=== PATIENT | male | born 1940 | race Caucasian/White ===

== ENCOUNTER → 2017-11-07 08:40 | Outpatient (CLI) | payer MEDICARE, OTHER, SELFPAY ==
[2017-11-07 11:39] LABS: PSA,Total- Diagnostic 2.58 ng/mL (0.0-4.0)
== END ==
PROVIDERS: Family Provider Nurse Practitioner; PCP Nurse Practitioner; Visit Provider Urology
DX: R97.20 Elevated prostate specific antigen [PSA] (principal)
CPT/HCPCS: 36415; 84153

== ENCOUNTER → 2018-10-08 10:07 | Outpatient (CLI) | payer MEDICARE, SELFPAY ==
[2018-08-13 13:28] VITALS: BMI 32.4
--- NOTE | 2018-10-08 10:11 | RAD_ITS ---
STUDY: X-RAY CHEST REASON FOR EXAM: Male, 78 years old. Pre-op. Patient has shortness of breath TECHNIQUE: PA and lateral views of the chest. COMPARISON: None. FINDINGS: There is hyperinflation of the lungs consistent with chronic obstructive lung disease (COPD). Lungs are clear. There is no demonstrated pleural abnormality. Normal size heart. Normal mediastinum and west. Normal visualized pulmonary arteries. Normal visualized aortic arch and descending thoracic aorta. Normal visualized thoracic spine. Normal visualized ribs, clavicles, and shoulders. There is no demonstrated abnormality of the visualized soft tissue structures of the upper abdomen. RAD/Chest PA and Lateral IMPRESSION: COPD. Lungs are clear. Electronically Signed: Isma Berman DO at 16:51 EDT Tel , Service support ,
== END ==
PROVIDERS: Family Provider Nurse Practitioner; PCP Nurse Practitioner; Referring Provider Nurse Practitioner; Visit Provider Nurse Practitioner
DX: Z01.818 Encounter for other preprocedural examination (principal)
CPT/HCPCS: 71046

== ENCOUNTER → 2018-11-10 09:46 | Outpatient (CLI) | payer MEDICARE, SELFPAY ==
[2018-08-13 13:28] VITALS: BMI 32.4
[2018-11-10 11:11] LABS: PSA,Total - Annual Screen 3.27 ng/mL (0.00-4.00)
== END ==
PROVIDERS: Family Provider Nurse Practitioner; PCP Nurse Practitioner; Referring Provider Urology; Visit Provider Urology
DX: Z12.5 Encounter for screening for malignant neoplasm of prostate (principal)
CPT/HCPCS: 36415; 84153; G0103

== ENCOUNTER 2018-12-14 08:01 | Inpatient (IN) | payer MEDICARE, SELFPAY ==
[2018-08-13 13:28] VITALS: BMI 32.4
[2018-12-07 15:16] VITALS: BP 122/73; PULSE 87; RESP 16; TEMP 36.7; O2SAT 94; BMI 30.6
--- NOTE | 2018-12-07 15:38 | SDCEKG_ITS ---
Test Reason : Blood Pressure : / mmHG Vent. Rate : 060 BPM Atrial Rate : 060 BPM P-R Int : 178 ms QRS Dur : 108 ms QT Int : 452 ms P-R-T Axes : -08 020 029 degrees QTc Int : 452 ms Sinus rhythm with Premature atrial complexes Otherwise normal ECG Confirmed by RADHA GANDHI, NAT ([id number]), supervising editor trailer STACEY QUIÑONES ([id number]) on 12/15/2018 11:29:50 AM Referred By: Arvin Fox Confirmed By:NAT GARCIA MD
[2018-12-07 16:34] LABS: Absolute Lymphocyte Count 1.61 X10^3/uL (0.83-4.51); Absolute Neutrophil Count 3.2 X10^3/uL (2.0-7.7); Basophil# 0.02 X10^3/uL; Basophil% 0.4 % (0-1); Eosinophil# 0.14 X10^3/uL; Eosinophils% 2.5 % (0-5); Hematocrit 42.8 % (40-54); Hemoglobin 14.7 g/dL (13.0-16.5); Lymphocyte # 1.61 X10^3/ul (4.0); Lymphocyte % 28.9 % (19-41); Mean Corp Hgb Conc 34.3 g/dL (32-36); Mean Corpuscular Hgb 31.1 pg (27.0-32.0); Mean Corpuscular Volume 90.7 fL (80-94); Mean Platelet Vol. 11.2 fl (6.2-12.0); Monocyte# 0.59 X10^3/uL; Monocyte% 10.6 % (0-10); NRBC Flagged by Analyzer 0 % (0-5); Neutrophil % 57.4 % (47-70); Platelet Count 140 K/mm3 (150-450); RBC Distribution Width CV 13.2 % (11.6-14.6); RBC Distribution Width SD 43.5 fl (35.1-43.9); Red Blood Count 4.72 M/mm3 (4.6-6.2); White Blood Count 5.6 K/mm3 (4.4-11.0)
[2018-12-07 16:53] LABS: Anion Gap 7 (5-15); BUN 14 mg/dL (7-18); BUN/Creat Ratio 17.3 RATIO (10-20); Calcium,Total 9.1 mg/dL (8.5-10.1); Chloride 110 mmol/L (98-107); Creatinine, Serum 0.81 mg/dL (0.70-1.30); EST Glomerular Filtration Rate 98 mL/min (>60); Est Glom Filt Rate - Afr Amer 118 mL/min (>60); Estimated Creatinine Clearance 85.98 ml/min; Glucose 88 mg/dL (74-106); Potassium 3.8 mmol/L (3.5-5.1); Sodium Level 143 mmol/L (136-145)
[2018-12-14] VITALS (18 sets, daily range): BP systolic 84–129; BP diastolic 43–85; PULSE 60–79; RESP 16–18; TEMP 36.1–36.6; O2SAT 92–98; BMI 30.6; BMI 31.1
[2018-12-14] MEDS: Acetaminophen 500 MG Tablet 1000 MG PO ×2 (09:00→22:19)
[2018-12-14] MEDS: Gabapentin 600 MG Tablet PO (09:00)
[2018-12-14] MEDS: Lactated Ringers 1,000 ML 125 ML IV ×3 (09:14→18:51)
[2018-12-14 09:20] LABS: Bedside Glucose 103 mg/dL (70-110)
--- NOTE | 2018-12-14 10:00 | HIP_PTH ---
PATIENT: PRABHU BUCIO LOC: MS3 U#:[id number] AGE/SX: 78/M ROOM: MS306 RE12/14/[address]: Dr. Arvin Fox DO : 1940 BED: 1 DIS: 12/16/2018 SPEC #: [id number] RECD: 12/14/18 15:55 STATUS: TERA REDelisa #: [id number] RAIN: 12/14/18 10:[address]: Arvin Fox DEPT: SURGICAL PATHOLOGY RECD BY: Macie Pinto ENTERED: 12/15/18 08:55 SP TYPE: TOTAL HIP OTHR DR: Nithya Harrell DEPUTY DISTRICT CUSTOMS DIRECTOR-Ata Tissues: Hip, NOS Procedures: Decalcification bone/plaque Surgery Specimen Level IV HEADER OPERATION: ERAS, total hip replacement PRE-OP DIAGNOSIS: Unilateral primary osteoarthritis, right hip TISSUE SUBMITTED: Right hip bone MICROSCOPIC DIAGNOSIS Right hip bone and soft tissue, total hip replacement/resection: Femoral head with degenerative osteoarthritic changes. Fragments of fibroadipose tissue, fibroconnective tissue and reactive synovial tissue. NAS:halle 12/18/18 MICROSCOPIC DESCRIPTION Slides are reviewed. GROSS DESCRIPTION Received is one container labeled with the patient's name and designated right hip bone. The specimen consists of a alberts femoral head with portion of femoral neck. The femoral head measures 5.5 x 7 x 6 cm and the portion of femoral neck measures 2 cm in length. The articular surface displays prominent osteophyte formation, eburnation and bone erosion. Also present in the specimen container are multiple irregular fragments of bone reamings and pink-yellow soft tissue measuring in aggregate 10 x 9 x 3 cm. Taper And Floater sections are submitted in two cassettes as follows: 1 - soft tissue, 2 - bone after decalcification. / NAS:halle 12/15/18 TC:5 CPT: 27686, [id number]
[2018-12-14] MEDS: Cefazolin 2 GM in 0.9% Normal Saline 100 ML IV (10:41)
--- NOTE | 2018-12-14 12:54 | RAD_ITS ---
STUDY: X-RAY - PELVIS AND RIGHT HIP REASON FOR EXAM: Male, 78 years old. Status post replacement TECHNIQUE: 2 views of the pelvis and hip. COMPARISON: None. FINDINGS: 2 limited postoperative views of the right hip were performed after replacement surgery. Components demonstrate anatomic alignment. No plain film evidence of postoperative complication. Normal postoperative soft tissue swelling and subcutaneous emphysema. RAD/Hip Min 2 Views (Portable) IMPRESSION: Replaced right hip joint demonstrates anatomic alignment. No plain film evidence of postoperative complication Electronically Signed: Arnav Stacy MD at 13:21 EDT , Service support ,
--- NOTE | 2018-12-14 13:08 | PCM.OPRPT ---
Report of Operation Date of Procedure: 12/14/18 Pre-Operative Diagnosis: OA right hip Post-Operative Diagnosis: same Surgery/Procedure Performed:: Right THR Description of Surgical Findings:: Primary Surgeon/Physician: Arvin Fox rotary veneer machine operator: Bi Espinoza PA-C rotary veneer machine operator: Pre-Operative Diagnosis: OA Right hip Post-Operative Diagnosis: same Surgery/Procedure Performed: Right THR Estimated Blood Loss: 100 cc Specimen's Removed: femoral head Type of Anesthesia: ASA Class: ASA3 Severe Disease Implants: [[place] size 56 mm Tritanium cup, MDM liner with +4 head, Accolade type II size 5 stem ] Surgical Indications: Patient has severe end-stage osteoarthritic changes in the [right ] hip. They have failed conservative measures including activity modification, anti-inflammatories, use of assistive devices. This to the point where the pain affects their ability to enjoy life and complete activities of daily living without discomfort. Patient has elected to undergo the above procedure Procedure Description: The patient was greeted in the preoperative area the [right ] hip was marked with surgical marker preoperative antibiotics administered. The patient was then taken to or suite in stable condition. Preoperative tranexamic acid was also utilized. Once the patient was placed in the supine position on the operating room table and once adequate anesthesia was obtained they were then placed in the lateral decubitus position with the surgical hip facing the field. All bony prominences were well-padded. A commercial hip position was utilized. The appropriate extremity was then prepped and draped in usual sterile fashion. Ioban was placed on the skin. Surgical timeout was performed and surgery was commenced. A standard posterior approach to the hip was then performed. Incision was planned and carried out with a #10 blade scalpel. Dissection was then carried length of the incision to the IT band which was split proximally and distally. A Charnley retractor was then placed for soft tissue retraction exposing the piriformis. A standard posterior capsulotomy was performed. Severe eburnation of bone was noted and periarticular osteophytes were identified consistent with severe end-stage osteoarthritis. A femoral neck osteotomy guide was used to castro the proximal femur. A femoral osteotomy was then created approximately 1 fingerbreadth above the lesser trochanter. This was measured and placed on the back table. Once this was complete acetabular retractors were placed anteriorly and posteriorly. Labrum was then removed from the acetabulum exposing the entire cup of the acetabulum. Sequential reaming was then commenced and the acetabulum was medialized and sequentially widened in order to accommodate appropriate size cup. The acetabular cup was then impacted into position to the appropriate depth referencing approximately 30? anteversion and 45? of inclination. Excellent purchase was obtained. An appropriate size MDM liner was then placed. Attention was then turned to the femoral preparation. The hip was placed in the 90/90 position and a lateralizing box osteotome was utilized. Femoral starting awl was used followed by sequential broaching to the appropriate size. Excellent purchase was obtained with the stem no stem subsidence and excellent rotational stability was confirmed. A calcar reamer was then used in the trial head neck was placed on the broach. The hip was then located and taken through full range of motion flexion internal and external rotation as well as extension. Excellent stability was noted no impingement was identified of the components and leg lengths appear to be appropriate. The hip was at this point dislocated and the trial femoral components were removed. The final femoral stem was then implanted and impacted to the appropriate depth. Again excellent purchase was obtained no stem subsidence or rotational instability was noted. The hip was once again trialed and confirmation of leg length and stability was performed. Soft tissue tension also appeared to be appropriate. At this point the hip was redislocated and the trunnion was cleaned and dried meticulously in the appropriate size MDM femoral head was placed on the clean dry trunnion using a 12/14 Hager taper. The hip was once again relocated and again taken through full range of motion. I did inject a cocktail of postoperative pain medication in the deep and superficial tissues. Copious irrigation was performed. Anatomic closure of the piriformis tendon was performed through drill holes in the greater trochanter. A #1 Vicryl 0 Vicryl was utilized in subcutaneous tissue and surgical majo were placed in the skin. A well-padded nonadherent dressing was applied. Patient was taken to PACU in stable condition. No complications were identified. Will follow standard postop protocol for total hip arthroplasty. My retail event assistant played a vital role in the procedure beginning with positioning, holding retraction of soft tissues, positioning the leg to optimize visualization during the procedure and assisting with wound closure. rotary veneer machine operator: Bi Espinoza Type of Anesthesia:: General Anesthesiologist: Elbert Lakhani Specimen's removed: bone Estimated Blood Loss (mL): 100 cc - Admit VTE Documentation VTE Present on Admission: No VTE Mechan Device Prophylaxis: SCD's, Thigh High SANGEETA Joee VTE Pharm Prophylaxis ordered?: Yes
[2018-12-14 13:37] LABS: Hematocrit 38.7 % (40-54); Hemoglobin 13.2 g/dL (13.0-16.5); Mean Corp Hgb Conc 34.1 g/dL (32-36); Mean Corpuscular Hgb 31.4 pg (27.0-32.0); Mean Corpuscular Volume 91.9 fL (80-94); Mean Platelet Vol. 10.9 fl (6.2-12.0); Platelet Count 121 K/mm3 (150-450); RBC Distribution Width CV 13.2 % (11.6-14.6); RBC Distribution Width SD 44.2 fl (35.1-43.9); Red Blood Count 4.21 M/mm3 (4.6-6.2); White Blood Count 7.3 K/mm3 (4.4-11.0)
[2018-12-14 13:49] LABS: Anion Gap 8 (5-15); BUN 24 mg/dL (7-18); BUN/Creat Ratio 21.1 RATIO (10-20); Calcium,Total 8.6 mg/dL (8.5-10.1); Chloride 109 mmol/L (98-107); Creatinine, Serum 1.14 mg/dL (0.70-1.30); EST Glomerular Filtration Rate 66 mL/min (>60); Est Glom Filt Rate - Afr Amer 80 mL/min (>60); Estimated Creatinine Clearance 61.09 ml/min; Glucose 162 mg/dL (74-106); Potassium 3.7 mmol/L (3.5-5.1); Sodium Level 142 mmol/L (136-145)
[2018-12-14] MEDS: CLARIFY ORDER NOTE (15:44)
[2018-12-14] MEDS: oxyCODONE 5 MG Tablet PO (18:27)
[2018-12-14] MEDS: Cefazolin 1 GM/50 ML BAG IV (18:27)
[2018-12-14] MEDS: Gabapentin 300 MG Capsule PO (18:28)
[2018-12-14] MEDS: Niacin SA 500 MG Tablet PO (22:19)
[2018-12-14] MEDS: Senna/Docusate Sodium 1 Tablet 2 TABLET PO (22:20)
[2018-12-15 01:30] VITALS: BP 105/53; PULSE 65; RESP 16; TEMP 37.2; O2SAT 95
[2018-12-15] MEDS: Cefazolin 1 GM/50 ML BAG IV (01:52)
[2018-12-15] MEDS: Acetaminophen 500 MG Tablet 1000 MG PO ×3 (05:44→22:17)
[2018-12-15 05:54] LABS: Hemoglobin 11.5 g/dL (13.0-16.5); Mean Corp Hgb Conc 32.9 g/dL (32-36); Mean Corpuscular Hgb 30.9 pg (27.0-32.0); Mean Corpuscular Volume 94.1 fL (80-94); Mean Platelet Vol. 11.3 fl (6.2-12.0); Platelet Count 101 K/mm3 (150-450); RBC Distribution Width CV 13.1 % (11.6-14.6); RBC Distribution Width SD 44.9 fl (35.1-43.9); Red Blood Count 3.72 M/mm3 (4.6-6.2); White Blood Count 8.6 K/mm3 (4.4-11.0)
[2018-12-15 06:01] LABS: Scan Indicated on CBC? Y/N NO
[2018-12-15 06:09] LABS: Anion Gap 5 (5-15); BUN 25 mg/dL (7-18); BUN/Creat Ratio 19.4 RATIO (10-20); Calcium,Total 8.2 mg/dL (8.5-10.1); Chloride 108 mmol/L (98-107); Creatinine, Serum 1.29 mg/dL (0.70-1.30); EST Glomerular Filtration Rate 57 mL/min (>60); Est Glom Filt Rate - Afr Amer 69 mL/min (>60); Estimated Creatinine Clearance 53.99 ml/min; Glucose 136 mg/dL (74-106); Potassium 3.9 mmol/L (3.5-5.1); Sodium Level 142 mmol/L (136-145)
[2018-12-15 06:38] VITALS: BP 123/48; PULSE 65; RESP 16; TEMP 37.1; O2SAT 95
--- NOTE | 2018-12-15 07:22 | PN.ORTHO_ITS ---
Subjective: Patient sitting at bedside. Patient states pain is well-managed. Patient denies chest pain, shortness breath, calf pain, nausea vomiting. Patient states he is ready for discharge home today. Patient states she will be doing physical therapy at [facility]. She has no other complaints Objective: Dressing is clean dry intact. Vital signs and labs within normal limits. Patient is afebrile, neurovascular is otherwise intact. Patient is in no respiratory distress, speaking in full sentences. - Physical Exam Vitals/I&O's: Vital Signs Temp Pulse Resp BP Pulse Ox 98.8 F 65 16 123/48 H 95 12/15/18 06:38 12/15/18 06:38 12/15/18 06:38 12/15/18 06:38 12/15/18 06:38 Oxygen Flow Rate (L/min) 2 Oxygen Delivery Method Room Air Weight: 110.2 kg Body Mass Index (BMI) 31.1 Intake and Output for Last 24 Hours 12/13/18 12/14/18 12/15/18 23:59 23:59 23:59 Intake Total 4180 / 4180 1200.00 / 1200.00 Output Total 225 / 225 275 / 275 Balance 3955 / 3955 925.00 / 925.00 General: Alert, Oriented x3, Cooperative HEENT: PERRLA Oral: Moist Mucosa Cardiovascular: Regular rate Neurological: Cranial nerves II-XII grossly intact Psych/Mental Status: Normal Affect, Alert and oriented to time, place, person, mood and affect Laboratory Results 12/14/18 09:05: POC Glucose 103 12/14/18 13:30: WBC 7.3, RBC 4.21 L, Hgb 13.2, Hct 38.7 L, MCV 91.9, MCH 31.4, MCHC 34.1, RDW Std Deviation 44.2 H, RDW Coeff of April 13.2, Plt Count 121 L, MPV 10.9 12/14/18 13:30: Sodium 142, Potassium 3.7, Chloride 109 H, Carbon Dioxide 25.0, Anion Gap 8, BUN 24 H, Creatinine 1.14, Estim Creat Clear Calc 61.09, Est GFR (MDRD) Af Amer 80, Est GFR (MDRD) Non-Af 66, BUN/Creatinine Ratio 21.1 H, Glucose 162 H, Calcium 8.6 12/15/18 05:32: WBC 8.6, RBC 3.72 L, Hgb 11.5 L, Hct 35.0 L, MCV 94.1 H, MCH 30.9, MCHC 32.9, RDW Std Deviation 44.9 H, RDW Coeff of April 13.1, Plt Count 101 L, MPV 11.3 12/15/18 05:32: Sodium 142, Potassium 3.9, Chloride 108 H, Carbon Dioxide 29.0, Anion Gap 5, BUN 25 H, Creatinine 1.29, Estim Creat Clear Calc 53.99, Est GFR (MDRD) Af Amer 69, Est GFR (MDRD) Non-Af 57 L, BUN/Creatinine Ratio 19.4, Glucose 136 H, Calcium 8.2 L Current Medications Acetaminophen (Tylenol) 1,000 mg PO Q8 [facility] Last Admin: 12/15/18 05:44 Dose: 1,000 mg Documented by: Ascorbic Acid (Vitamin C) 500 mg PO DAILY@0800 [facility] Aspirin (Aspirin) 325 mg PO BID [facility] Cyanocobalamin (Vitamin B12) 1,000 mcg PO DAILY [facility] Ergocalciferol (Vitamin D) 50,000 unit PO Lowe@1000 [facility]ibr[facility] ([facility]) [facility] Finasteride (Proscar) 5 mg PO DAILY [facility] Gabapentin (Neurontin) [facility] Last Admin: 12/14/18 18:28 Dose: 300 mg Documented by: Lactated Ringer's () 1,000 mls @ 125 mls/hr IV .Q8H [facility] Last Admin: 12/15/18 05:27 Dose: Not Given Documented by: Insulin Human Lispro (Humalog Kwikpen (Bkc)) 1 - 6 unit SC Q4H PRN PRN; Protocol PRN Reason: BG>/= 180, SEE PROTOCOL Ketorolac Tromethamine (Toradol) 15 mg IV Q6H PRN PRN PRN Reason: Pain Score 1-5/10 Niacin (Niaspan) 500 mg PO BID [facility] Last Admin: 12/14/18 22:19 Dose: 500 mg Documented by: Ondansetron HCl (Zofran) 4 mg IV Q8H PRN PRN PRN Reason: NAUSEA Oxycodone HCl (Oxyir) 5 - 10 mg PO Q4H PRN PRN PRN Reason: Pain Score 4-10/10 Last Admin: 12/14/18 18:27 Dose: 5 mg Documented by: Promethazine HCl (Phenergan) 12.5 mg IM Q6H PRN PRN; Protocol PRN Reason: NAUSEA/VOMITING Senna/Docusate Sodium (Senokot-S, Amena-Colace) 2 tablet PO BID [facility] Last Admin: 12/14/18 22:20 Dose: 2 tablet Documented by: Sodium Chloride () 5 - 15 ml IV UD PRN PRN Reason: SALINE FLUSH Medical Necessity - Tobacco Use Smoking Status: Former smoker Tobacco Use: Non-smoker Assessment/Plan All Active Problems (Last Reviewed 08/13/18 @ 13:27 by Norma Roy) Skin lesions (Acute) Earlobe lesion (Acute) Status post lumbar laminectomy (Acute) Postop right total hip arthroplasty Plan 1. Continue all pain medications as prescribed 2. Begin physical therapy, weight-bear as tolerated, with walker. 3. Aspirin 325 mg 1 p.o. every 12 hours x30 days for postop DVT prophylaxis 4. Encourage incentive spirometry 5. Discharge home today after p.m. therapy 6. Follow-up as scheduled, with Dr. Fox, see pink sheet 7. Patient will continue outpatient physical therapy at [facility]
--- NOTE | 2018-12-15 07:32 | DCINST_ITS ---
Discharge Diet: No Restrictions Discharge Activity: May Not Drive, May Shower, Use Walker May shower in (days): 2 - only if incision is dry and without drainage. Do NOT soak/submerge in tub/pool/carlos/stream/hot tub. May resume sexual activity in: No Restrictions Ice area for (Minutes): 20 - every hour while awake Weight Bearing Status: Weight bearing as tolerated Lifting Restrictions: 20 pounds Elevate: Operative Extremity Call your doctor if your incision/area has: Continuous Slow Oozing, Sudden Increased Bleeding, Increased Pain/ Swelling, Increased Redness, Foul Smelling Discharge Call your doctor if you observe: Fever of 101 or Higher, Inability to urinate, Inability to have a bowel movement, Shortness of breath, Fainting spells, Chest pain, Increased palpitations (irregular heartbeat), Calf discomfort, Uncontrolled pain Change Dressing in (Days):: 0 - Change daily and as needed. Remove Dressing in (days):: 8 Cleanse incision/area with: Soap & Water Allergies/Adverse Reactions: Allergies No Known Allergies Allergy (Verified 12/07/18 15:03) Medications to take at Discharge Ascorbic Acid [Vitamin C] 500 mg PO DAILY@0800 06/17/14 Cyanocobalamin (Vitamin B-12) [Vitamin B-12] 1,000 mcg PO DAILY 06/17/14 Finasteride [Proscar] 5 mg PO DAILY 06/17/14 Gabapentin [Neurontin] 300 mg PO BID 06/17/14 Niacin SA [Niaspan] 500 mg PO BID 06/17/14 [place] 160 mg PO QODAY 06/17/14 Cholecalciferol (Vitamin D3) [Vitamin D3] 50,000 unit PO QWEEK 02/02/15 Fenofibrate [Tricor] 145 mg PO DAILY 12/07/18 Acetaminophen [Tylenol] 1,000 mg PO Q8 #90 tab 12/15/18 Aspirin 325 mg PO BID #60 tab 12/15/18 Oxycodone [Oxyir] 5 - 10 mg PO Q6H PRN PRN 7 Days #56 tab 12/15/18 Senna/Docusate Sodium [Senokot-S] 2 tablet PO BID tablet 12/15/18 The following prescriptions were given: Aspirin 325 mg PO BID #60 tab Prescription Printed Oxycodone [Oxyir] 5 - 10 mg PO Q6H PRN PRN 7 Days #56 tab PRN Reason: Pain Score 4-10/10 Prescription Printed Acetaminophen [Tylenol] 1,000 mg PO Q8 #90 tab Prescription Printed Primary Care Physician: Nithya Harrell NP-C [Primary Care Provider] - Test Results: Test results from this visit will be discussed in further detail at your follow- up appointment, if applicable. Please Follow Up With: Arvin Fox, DO When: see pink sheet
[2018-12-15] MEDS: Ascorbic Acid 500 MG Tablet PO (07:59)
[2018-12-15] MEDS: Gabapentin 300 MG Capsule PO ×2 (07:59→17:02)
[2018-12-15] MEDS: Fenofibrate 145 MG Tablet PO (07:59)
[2018-12-15 08:22] VITALS: O2SAT 94
[2018-12-15 08:50] VITALS: BP 113/42; PULSE 80; RESP 18; TEMP 36.6; O2SAT 94
[2018-12-15] MEDS: Niacin SA 500 MG Tablet PO ×2 (08:59→22:18)
[2018-12-15] MEDS: Senna/Docusate Sodium 1 Tablet 2 TABLET PO ×2 (09:00→22:18)
[2018-12-15] MEDS: Finasteride 5 MG Tablet PO (09:00)
[2018-12-15] MEDS: Aspirin 325 MG Tablet PO ×2 (09:00→22:18)
[2018-12-15] MEDS: Cyanocobalamin 500 MCG Tablet 1000 MCG PO (10:03)
--- NOTE | 2018-12-15 11:00 | CASEMGMT ---
CHRISTINA LESTER Face to Face with patient for initial transition planning/care coordination assessment. RN TAYLER introduced self and role at [facility]. Patient sitting in chair, alert and oriented. Patient willing to participate in assessment and is able to answer all questions appropriately. Care providers, pharmacy, and demographics verified. Patient wishes to discharge home and is setup with [facility] for outpatient therapy. Patient states he has no further needs or concerns at this time. CM to follow for discharge planning needs that may arise. PCP: Julio Cesar SLOTTER OPERATOR Specialists: Ruddy, ortho; Canelo, urologist; Randy Pain Preferred Pharmacy: [facility] Insurance: [employer] Prescription Benefit: yes Living Will/HPOA: he thinks so it would be his daughters LNOK: Daughter, Son in Law, grandson Living Arrangements: Patient lives alone in single story home with 2 steps to enter the home. Patient states that his grandson will be staying with him Transportation: Daughter DME/HHC: Patient has shower chair, raised toilet, cane, hip kit, and walker. No previous SNF or HHC. Patient is scheduled for outpatient therapy for Friday12/18/18 at [facility]. Disposition Plan: Patient to discharge home with family support, outpatient therapy, and follow-up plans in place. Leilani CHA, RN, CM
--- NOTE | 2018-12-15 13:15 | CASEMGMT ---
RN TAYLER and ABBE updated that family concerned with patient going home. CHRISTINA LESTER and ABBE in to discuss with son in law and reviewed therapy notes with son in law. SW updated son in law that patient will not qualify for SNF at discharge. CHRISTINA LESTER updated that per notes patient was scheduled for outpatient therapy before surgery. Son in law concerned patient is more confused and unsafe to discharge home. CHRISTINA LESTER updated floor nurse who updated IFEANYI Lyon and discharge cancelled for today. Son in law to discuss with family and make arrangement for someone to stay with patient for next few day.
[2018-12-15 13:39] VITALS: BP 124/65; PULSE 76; RESP 18; TEMP 36.5; O2SAT 95
[2018-12-15 20:25] VITALS: BP 113/50; PULSE 87; RESP 18; TEMP 37.1; O2SAT 93
[2018-12-15] MEDS: oxyCODONE 5 MG Tablet PO (20:26)
[2018-12-16 02:41] VITALS: BP 110/60; PULSE 75; RESP 18; TEMP 36.4; O2SAT 93
[2018-12-16] MEDS: Acetaminophen 500 MG Tablet 1000 MG PO ×2 (05:17→15:14)
[2018-12-16 05:58] LABS: Hematocrit 34.5 % (40-54); Hemoglobin 11.1 g/dL (13.0-16.5); Mean Corp Hgb Conc 32.2 g/dL (32-36); Mean Corpuscular Hgb 30.3 pg (27.0-32.0); Mean Corpuscular Volume 94.3 fL (80-94); Mean Platelet Vol. 11.6 fl (6.2-12.0); Platelet Count 88 K/mm3 (150-450); RBC Distribution Width CV 13.2 % (11.6-14.6); RBC Distribution Width SD 45.6 fl (35.1-43.9); Red Blood Count 3.66 M/mm3 (4.6-6.2); White Blood Count 7.2 K/mm3 (4.4-11.0)
[2018-12-16] MEDS: Fenofibrate 145 MG Tablet PO (07:42)
[2018-12-16] MEDS: Gabapentin 300 MG Capsule PO ×2 (07:42→17:10)
[2018-12-16] MEDS: Ascorbic Acid 500 MG Tablet PO (07:42)
[2018-12-16] MEDS: Senna/Docusate Sodium 1 Tablet 2 TABLET PO (07:42)
[2018-12-16] MEDS: Cyanocobalamin 500 MCG Tablet 1000 MCG PO (07:43)
[2018-12-16] MEDS: Niacin SA 500 MG Tablet PO (07:43)
[2018-12-16] MEDS: Aspirin 325 MG Tablet PO (07:43)
[2018-12-16] MEDS: Finasteride 5 MG Tablet PO (07:43)
--- NOTE | 2018-12-16 07:45 | NURSING ---
ANM MEDS GIVEN AT THIS TIME W/BREAKFAST PER PT REQUEST, HE DOES AT HOME.
[2018-12-16 07:50] VITALS: O2SAT 92
--- NOTE | 2018-12-16 09:53 | CASEMGMT ---
Social Work Note ABBE received note from binder stripper hand stating pt's step-daughter Xiao would like to speak with this worker. ABBE placed a call to pt's step-daughter Xiao and introduced self and role at [facility]. Xiao states she was at [facility] last night and pt didn't use his walker to get to the bathroom and needed the rails on the bed to adjust himself when he got in to bed. Xiao states she has concerns because pt doesn't have grab bars in his home and doesn't have rails on his bed. Xiao states that when her father in law was diagnosed with Dementia an agency came out to the home and did an assessment and modified her father in law's home and they did everything. ABBE informed Xiao that it was likely [facility] that did assessment and that this worker can make referral but that this worker is not sure when [facility] will be able to complete assessment for pt. Xiao states that she would like to be called to arrange appointment for [facility]. Xiao states that she and her sister will be staying with pt at discharge but that pt went to his appointments by himself and pt would just say yes to questions but not really understand. Xiao states that she would like grab bars and rails for pt's bed. ABBE informed Xiao that this worker will let RN CM know about request and have RN CM give her a call. Xiao states understanding, denied additional needs or concerns this week. ABBE updated RN CM on DME request. ABBE faxed referral to [facility]. Leilani James COAL HAULER OPERATOR, MOTORIZED SQUAD SERGEANT
[2018-12-16 11:00] VITALS: BP 111/57; PULSE 70; RESP 16; TEMP 36.6; O2SAT 94
--- NOTE | 2018-12-16 13:12 | PN.ORTHO_ITS ---
Subjective: Patient sitting at bedside, has no complaints. Patient states he is ready for discharge home. Objective: Dressing is clean dry intact. Vital signs labs within normal limits. Negative signs and symptoms of DVT. Patient no respiratory distress, speaking full sentences. - Physical Exam Vitals/I&O's: Vital Signs Temp Pulse Resp BP Pulse Ox 97.8 F 70 16 111/57 L 94 12/16/18 11:00 12/16/18 11:00 12/16/18 11:00 12/16/18 11:00 12/16/18 11:00 Oxygen Flow Rate (L/min) 2 Oxygen Delivery Method Room Air Weight: 110.2 kg Body Mass Index (BMI) 31.1 Intake and Output for Last 24 Hours 12/14/18 12/15/18 12/16/18 23:59 23:59 23:59 Intake Total 4180 / 4180 2275.00 / 2275.00 400 / 400 Output Total 225 / 225 675 / 675 Balance 3955 / 3955 1600.00 / 1600.00 400 / 400 General: Alert, Oriented x3, Cooperative HEENT: PERRLA Laboratory Results 12/16/18 05:32: WBC 7.2, RBC 3.66 L, Hgb 11.1 L, Hct 34.5 L, MCV 94.3 H, MCH 30.3, MCHC 32.2, RDW Std Deviation 45.6 H, RDW Coeff of April 13.2, Plt Count 88 L , MPV 11.6 Current Medications Acetaminophen (Tylenol) 1,000 mg PO Q8 [facility] Last Admin: 12/16/18 05:17 Dose: 1,000 mg Documented by: Ascorbic Acid (Vitamin C) 500 mg PO DAILY@0800 [facility] Last Admin: 12/16/18 07:42 Dose: 500 mg Documented by: Aspirin (Aspirin) 325 mg PO BID [facility] Last Admin: 12/16/18 07:43 Dose: 325 mg Documented by: Cyanocobalamin (Vitamin B12) 1,000 mcg PO DAILY [facility] Last Admin: 12/16/18 07:43 Dose: 1,000 mcg Documented by: Ergocalciferol (Vitamin D) 50,000 unit PO Lowe@1000 [facility] Fenofibrate (Tricor) 145 mg PO DAILYCM [facility] Last Admin: 12/16/18 07:42 Dose: 145 mg Documented by: Finasteride (Proscar) 5 mg PO DAILY [facility] Last Admin: 12/16/18 07:43 Dose: 5 mg Documented by: [facility] Last Admin: 12/16/18 07:42 Dose: 300 mg Documented by: Insulin Human Lispro (Humalog Kwikpen (Bkc)) 1 - 6 unit SC Q4H PRN PRN; Protocol PRN Reason: BG>/= 180, SEE PROTOCOL Ketorolac Tromethamine (Toradol) 15 mg IV Q6H PRN PRN PRN Reason: Pain Score 1-5/10 Niacin (Niaspan) 500 mg PO BID [facility] Last Admin: 12/16/18 07:43 Dose: 500 mg Documented by: Ondansetron HCl (Zofran) 4 mg IV Q8H PRN PRN PRN Reason: NAUSEA Oxycodone HCl (Oxyir) 5 - 10 mg PO Q4H PRN PRN PRN Reason: Pain Score 4-10/10 Last Admin: 12/15/18 20:26 Dose: 5 mg Documented by: Promethazine HCl (Phenergan) 12.5 mg IM Q6H PRN PRN; Protocol PRN Reason: NAUSEA/VOMITING Senna/Docusate Sodium (Senokot-S, Amena-Colace) 2 tablet PO BID [facility] Last Admin: 12/16/18 07:42 Dose: 2 tablet Documented by: Sodium Chloride () 5 - 15 ml IV UD PRN PRN Reason: SALINE FLUSH Medical Necessity - Tobacco Use Smoking Status: Former smoker Tobacco Use: Non-smoker Assessment/Plan All Active Problems (Last Reviewed 08/13/18 @ 13:27 by Norma Roy) Skin lesions (Acute) Earlobe lesion (Acute) Status post lumbar laminectomy (Acute) Postop right total hip arthroplasty Plan 1. Continue all pain medications as prescribed 2. Begin physical therapy, weight-bear as tolerated, with walker. 3. Aspirin 325 mg 1 p.o. every 12 hours x30 days for postop DVT prophylaxis 4. Encourage incentive spirometry 5. Discharge home today after p.m. therapy 6. Follow-up as scheduled, with Dr. Fox, see pink sheet 7. Patient will continue outpatient physical therapy at [facility] [place]
[2018-12-16 15:00] VITALS: BP 126/68; PULSE 73; RESP 14; TEMP 36.7; O2SAT 98
== END 2018-12-16 17:32 | disposition home or self-care (01) | DRG 470 ==
LOC: ACINP 08:03 → MS3 12:45
PROVIDERS: Admitting Provider Orthopaedic Surgery; Family Provider Nurse Practitioner; PCP Nurse Practitioner; Referring Provider Orthopaedic Surgery; Visit Provider Orthopaedic Surgery
PROC: 0SR90JZ Replacement of Right Hip Joint with Synthetic Substitute, Open Approach (ICD-10-PCS; CPT 27130; principal; 2018-12-14 09:35)
DX: M16.11 Unilateral primary osteoarthritis, right hip (principal)
CPT/HCPCS: 36415; 73502; 80048; 82962; 85025; 85027; 87081; 88305; 88311; 93005; 97110; 97116; 97162; 97166; 97530; C1776; J7120; J2405

== ENCOUNTER 2019-04-23 16:23 | Emergency (ER) | payer MEDICARE, SELFPAY ==
[2018-12-14 15:27] VITALS: BMI 31.1
[2019-04-23 16:25] VITALS: BP 136/69; PULSE 64; RESP 18; TEMP 36.8; O2SAT 95; BMI 67.9
--- NOTE | 2019-04-23 16:49 | US_ITS ---
STUDY: VENOUS DOPPLER ULTRASOUND - BILATERAL LOWER EXTREMITIES REASON FOR EXAM: Male, 79 years old. RT HIP REPLACED NOV 2018 FEET DISCOLORATION RT FOOT SWELLING RT NERVE PAIN TOP OFLEG TECHNIQUE: Ultrasound evaluation of the deep vein system to include bae-scale imaging and compression was performed. Bae-scale imaging and Doppler sonographic evaluation, including duplex spectral analysis and qualitative color flow sonography, was performed. COMPARISON: None. FINDINGS: RIGHT LEG Common Femoral Vein: Normal compression, spontaneity and augmentation. Normal color Doppler. Common Femoral Vein/Greater Saphenous Junction: Normal compression. No internal echoes. Deep Femoral Vein: Not imaged Femoral Proximal: Normal compression. No internal echoes. Femoral Middle: Normal compression, spontaneity and augmentation. Normal color Doppler. Femoral Distal: Normal compression. No internal echoes. Popliteal Vein: Normal compression, spontaneity and augmentation. Normal color Doppler. Posterior Tibial Vein: Normal compression. No internal echoes. Peroneal Vein: Normal compression. No internal echoes. LEFT LEG Common Femoral Vein: Normal compression, spontaneity and augmentation. Normal color Doppler. Common Femoral Vein/Greater Saphenous Junction: Normal compression. No internal echoes. Deep Femoral Vein: Not imaged Femoral Proximal: Normal compression. No internal echoes. Femoral Middle: Normal compression, spontaneity and augmentation. Normal color Doppler. Femoral Distal: Normal compression. No internal echoes. Popliteal Vein: Normal compression, spontaneity and augmentation. Normal color Doppler. Posterior Tibial Vein: Normal compression. No internal echoes. Peroneal Vein: Normal compression. No internal echoes. US/Venous Duplex Imag/Giuliano Extrem IMPRESSION: There is no evidence of DVT of the left or right lower extremities. Electronically Signed: Adam Medellin MD at 19:04 EST , Service support ,
[2019-04-23 17:37] VITALS: BMI 30.4
--- NOTE | 2019-04-23 17:40 | ED.VISSUMM ---
- ER Visit Summary Date of Service: 04/23/19 Chief Complaint: [Redness and swelling to right leg] History of Present Illness: The patient is a 79 M [presents the emergency department complaint of redness and swelling to his right leg for about 2 weeks. Patient states that he had a hip replacement surgery 4 months ago. Patient denies any chest pain or shortness of breath. Patient is concerned about possibility of a blood clot in his leg. He has no prior history of DVT or PE. Patient has history of CLL and back pain history.] Physical Examination: [HEENT-PERRLA, EOMI. Cranial nerves II through XII grossly intact. TMs clear. Mucous membranes moist. No adenopathy. Cardiovascular-regular rate and rhythm without murmur or ectopy Lungs-clear to auscultation, chest wall stable without crepitus or subcu emphysema Abdomen-normoactive bowel sounds, soft, nontender, no rebound or rigidity, no peritoneal signs. Extremities-intact ?4, normal range of motion, normal pulses, atraumatic. Right leg-patient has some faint erythema to the foot as well as edema noted from below the knee to the foot. He has normal dorsal pedal and posterior tibial pulses. Normal cap refill. Left leg-patient has some mild edema of the left lower extremity as well. Normal pulses.] Test Results: [Cooper Doppler of bilateral lower extremities obtained and was negative for DVT. Patient has CBC with differential that showed a white count 4.4, hemoglobin 14, hematocrit 43, platelets 126. Chemistries unremarkable. Kidney function was normal.] Emergency Department Course and Treatment: [] Treatment Plan: [Follow-up with primary care physician in 3 to 5 days. Patient has sciatic type pain also which he has had for quite some time. Patient had back surgery and 2015 for same. At this point etiology of the swelling is unclear expect possibly venous insufficiency.] Disposition: [Discharged home in stable condition] Impression: [Bilateral leg edema] This note was generated with [employer] dictation software. It may contain incorrect words, spelling, and punctuation that were not noted in review of the chart prior to signing ED Disposition - Plan for ED Patient: Referrals: Nithya Harrell, SCREEN MACHINE OPERATOR-C [Primary Care Provider] -
[2019-04-23 19:00] VITALS: BP 134/78; PULSE 60; RESP 16; O2SAT 95
[2019-04-23 19:06] LABS: Absolute Lymphocyte Count 1.34 X10^3/uL (0.83-4.51); Absolute Neutrophil Count 2.3 X10^3/uL (2.0-7.7); Basophil# 0.02 X10^3/uL; Basophil% 0.5 % (0-1); Eosinophil# 0.12 X10^3/uL; Eosinophils% 2.8 % (0-5); Hematocrit 42.7 % (40-54); Hemoglobin 14.1 g/dL (13.0-16.5); Lymphocyte # 1.34 X10^3/ul (4.0); Lymphocyte % 30.7 % (19-41); Mean Corpuscular Hgb 29.7 pg (27.0-32.0); Mean Corpuscular Volume 89.9 fL (80-94); Mean Platelet Vol. 11.1 fl (6.2-12.0); Monocyte# 0.58 X10^3/uL; Monocyte% 13.3 % (0-10); NRBC Flagged by Analyzer 0 % (0-5); Neutrophil # 2.29 X10^3/uL (2.7-7.7); Neutrophil % 52.5 % (47-70); Platelet Count 126 K/mm3 (150-450); RBC Distribution Width CV 13.4 % (11.6-14.6); RBC Distribution Width SD 44.1 fl (35.1-43.9); Red Blood Count 4.75 M/mm3 (4.6-6.2); White Blood Count 4.4 K/mm3 (4.4-11.0)
[2019-04-23 19:10] LABS: Anion Gap 5 (5-15); BUN 19 mg/dL (7-18); BUN/Creat Ratio 19.7 RATIO (10-20); Chloride 111 mmol/L (98-107); Creatinine, Serum 0.96 mg/dL (0.70-1.30); EST Glomerular Filtration Rate 80 mL/min (>60); Est Glom Filt Rate - Afr Amer 96 mL/min (>60); Estimated Creatinine Clearance 71.35 ml/min; Glucose 88 mg/dL (74-106); Potassium 3.7 mmol/L (3.5-5.1); Sodium Level 143 mmol/L (136-145)
--- NOTE | 2019-04-23 19:26 | DCINST.ED_ITS ---
ED Disposition - Plan for ED Patient: Instructions: ED Peripheral Edema, Bilateral Referrals: Nithya Harrell, CONSTRUCTION ECONOMIST-C [Primary Care Provider] - 3-5 Days
--- NOTE | 2019-04-23 19:26 | ED.DEP ---
ED Disposition - Plan for ED Patient: Instructions: ED Peripheral Edema, Bilateral Referrals: Nithya Harrell, LEGAL SUPPORT ASSISTANT-C [Primary Care Provider] - 3-5 Days
== END 2019-04-23 19:58 | disposition home or self-care (01) ==
LOC: ED 16:50
PROVIDERS: Emergency Provider Emergency Medicine; PCP Nurse Practitioner
DX: R60.0 Localized edema (principal); Z96.641 Presence of right artificial hip joint; Z85.6 Personal history of leukemia; Z87.891 Personal history of nicotine dependence; Z79.82 Long term (current) use of aspirin; Z79.899 Other long term (current) drug therapy
CPT/HCPCS: 80048; 85025; 93970; 99282; A4216

== ENCOUNTER → 2019-08-19 10:13 | Outpatient (CLI) | payer MEDICARE, SELFPAY ==
[2019-08-19 10:10] VITALS: BMI 32.6
--- NOTE | 2019-08-19 10:13 | RAD_ITS ---
STUDY: X-RAY - CERVICAL SPINE REASON FOR EXAM: Male, 79 years old. LEFT ARM AND POSTERIOR NECK PAIN, NKI TECHNIQUE: 5 view(s) of the cervical spine were obtained. COMPARISON: None FINDINGS: Normal anterior atlantoaxial articulation. Normal odontoid process. Normal cervical lordosis. There is multi-level endplate spondylosis. There is multi-level degenerative disc disease with multilevel disc space narrowing. There is multi-level osseous foraminal stenosis. The soft tissue structures are unremarkable. RAD/Cerv Spine 4 or 5 Views IMPRESSION: Multilevel degenerative changes, no acute findings Electronically Signed: Arnav Stacy MD at 11:04 EDT , Service support ,
== END ==
PROVIDERS: PCP Nurse Practitioner; Referring Provider Orthopaedic Surgery; Visit Provider Orthopaedic Surgery
DX: M54.2 Cervicalgia (principal)
CPT/HCPCS: 72050

== ENCOUNTER 2019-09-29 11:00 | Outpatient (RCR) | payer MEDICARE, SELFPAY ==
[2019-08-19 10:10] VITALS: BMI 32.6
--- NOTE | 2019-08-24 13:17 | HP.PTEVAL ---
Patient's Visit Information PRABHU BUCIO is a 79 year old M referred to Physical Therapy by Dr. Hien Morgan DO with a diagnosis of CERVICAL SPINE DDD,RADICULAR PAIN LEFT SIDE. Date of Evaluation: 08/24/19 Physical Therapist: Laith Francois, PT, Cert MDT, OCS - Visit Plan Frequency: 2x /Week Duration: 3 Weeks Plan: PT INTERVENTIONS CERVICAL/POSTURAL EX'S,CERVICAL ROM,MANUAL TRACTION,MODALTIES NEEDED - Subjective This 79 y/o male presents to physical therapy with cervical radiculopathy . Patient presents use fww with Right THR last year. Patient has cervical and radicualr symptoms in left arm to elbow for 3weeks . Currently patient pain is better. Seen [facility] no meds ,x-rays. Patient symptoms would wake up middle of night. Patient pain located shoulder scapular region sore,mild tingling/parathesia in 1st three fingers. Patient aggraveting factors turning cervical spine,sitting ,mower grass. Alleviating factors gabepetin,rest,ice. Denies HAND,tinnutis,dizziness. No trauma. Patient has had no PT. Patient symptoms affects ADL'S and housework tasks. Patients symptoms affects QOL. Patient pain at worst 8/10. SOCAIL: . VOCATION: retired - Pain Left Neck Pain Intensity (Out of 10): 2 Pain Intensity Range: 10 - Objective POSTURE: rounded shoulders head foward. GAIT:reciprocal pattern mild foward posture with fww. NEURO: c/o mild parathesia/tingling left fingers C5-6-7 1/3. MMT: BUE 4/5 ,SHOULDER 4-/5. BUE: WFL. CERVICAL ROM: flexion min loss,lateral flexion mod right,mod/severe mod loss ,extension min/mod - Special Tests C/S Radiculapathy - Left Upper limb tension test: Negative C/S Radiculapathy - Right Upper limb tension test: Negative C/S Radiculapathy - Left Spurlings: Positive C/S Radiculapathy - Right Spurlings: Negative C/S Radiculapathy - Left Cervical distraction: Negative C/S Radiculapathy - Right Cervical distraction: Negative C/S Radiculapathy - Left Relief test: Negative Sharp Deandra: Negative Vertebral Artery Test: Negative Alar Ligament Test: Negative Cervical Sitting: Protrusion - Mechanical Response: No effect Cervical Sitting: Protrusion - Symptoms During Testing: No effect Cervical Sitting: Protrusion - Symptoms After Testing: No effect Cervical Sitting: Retraction - Mechanical Response: No effect Cervical Sitting: Retraction - Symptoms During Testing: No effect Cervical Sitting: Retraction - Symptoms After Testing: No effect - Goals Goal 1:: Patient to be I with HEP Goal Time Frame: 4-6 Weeks Goal 2:: Patient improve posture for ADLS' Goal Time Frame: 4-6 Weeks Goal 3:: Patient decrease cervical pain and radicular symptoms by 70% or > to improve function Goal Time Frame: 4-6 Weeks Goal 4:: Patient to improve cervical ROM for function of recovery. Goal Time Frame: 4-6 Weeks Goal 5:: Patient improve neck owestry score by 5 points or > to improve function. Goal Time Frame: 4-6 Weeks - Rehabilitation Potential Physical Therapy Diagnosis: This Patient appears to have left lateral stenosis with decrease ROM to left ,impairs ADLS' and function thus benifit from skilled PT. Rehabilitation Potential: Good - Anticipated Interventions Patient/Client Instruction: Educate patient on: Condition, Plan of Care For the Purpose of:: To decrease pain, To increase ROM, To improve muscle performance and motor function, To improve ability to perform ADL's, To increase tolerance to activity/condition/position, To improve performance and independence with ADL's, To improve ability of physical actions for home/community/work/leisure, To improve health of tissue, To decrease soft tissue restriction, To increase flexibility/ROM, To improve ability to perform tasks related to life management Therapeutic Exercise to Include: Strength training, Postural training, Active ROM For the Purpose of:: To decrease pain, To increase ROM, To improve ability to perform ADL's, To increase tolerance to activity/condition/position, To improve ability of physical actions for home/community/work/leisure, To improve health of tissue, To decrease soft tissue restriction, To increase flexibility/ROM Manual Therapy Techniques to Include: Other Comment: MANUAL CERVICAL TRACTION For the Purpose of:: To decrease pain, To increase ROM Cryotherapy (ice pack, ice massage): Yes Thermo therapy (hot pack): Yes Ultrasound (thermal/non thermal): Yes Intermittent cervical traction: Yes For the Purpose of:: To decrease pain, To increase ROM, To improve nutrient delivery to tissue, To increase oxygenation perfusion, To improve health of tissue, To decrease soft tissue restriction Thank you for the opportunity to evaluate your patient. For Medicare and Medicare HMO plans, please review the plan of care and approve it. It will need to be FAXED BACK to us at [phone] for Medicare purposes. For Medicare only, by signing this I certify the plan of care. Please let me know if there are questions or concerns regarding this plan of care. Physician Signature: Date:
--- NOTE | 2019-09-29 11:56 | HP.PTDCSUM ---
It has been my pleasure to treat PRABHU BUCIO referred by Dr. Hien Morgan DO, with the diagnosis of CERVICAL SPINE DDD,RADICULAR PAIN LEFT SIDE for a total of 8 visit(s). Discharge Date: 09/29/19 Please see the following information for a summary of their discharge status. Subjective: Patient doing good. Able to do all ADLS; without problem Left Neck Pain Intensity (Out of 10): 0 % Improvement: 70 Objective/Function: POSTURE: rounded shoulders head foward. PALPTION: tender UT. CERVICAL ROM: flexion min loss,extension mod loss,lateral flexion mod/severe rotation mod loss to left ,min/mod right. MMT: grossly 4/5 except shoulde 4-/5 Goal 1:: Patient to be I with HEP Goal Progress: Goal Met Goal 2:: Patient improve posture for ADLS' Goal Progress: Goal Met Goal 3:: Patient decrease cervical pain and radicular symptoms by 70% or > to improve function Goal Progress: Goal Met Goal 4:: Patient to improve cervical ROM for function of recovery. Goal Progress: Goal Met Goal 5:: Patient improve neck owestry score by 5 points or > to improve function. Goal Progress: Goal Met Plan: d/c Discharge Comments: hep If there are questions or concerns regarding this patient's physical therapy, please feel free to call me at [phone]. Thank you for the referral of this patient. Sincerely, Laith Francois, PT, Cert MDT, OCS
== END 2019-09-29 19:00 | disposition home or self-care (01) ==
LOC: PT 11:00
PROVIDERS: PCP Nurse Practitioner; Referring Provider Orthopaedic Surgery; Visit Provider Orthopaedic Surgery
DX: M50.10 Cervical disc disorder with radiculopathy, unspecified cervical region (principal)
CPT/HCPCS: 97035; 97110; 97162; 97530

== ENCOUNTER → 2020-10-02 09:52 | Outpatient (CLI) | payer MEDICARE, SELFPAY ==
[2020-08-15 13:25] VITALS: BMI 32.5
--- NOTE | 2020-10-02 09:55 | ART_ITS ---
Reason For Study: Peripheral Nervous Abn Procedure A bilateral lower extremity continuous wave Doppler with analog waveform analysis,segmental pressures,and ankle brachial indexes without exercise. Left Segmental Pressures Left brachial= 124mmHg. Left posterior tibial artery = 148mmHg. Left dorsalis pedis artery = 142mmHg. Left digit = 129 mmHg. Right Segmental Pressures Right brachial= 112mmHg. Right posterior tibial artery = 129mmHg. Right dorsalis pedis artery = 158mmHg. Right digit = 111 mmHg. Indices The right ankle brachial index by the posterior tibial artery is 1.04. The right ankle brachial index by the dorsalis pedis is 1.27. The right digital-brachial index is 0.90. The left ankle brachial index by the posterior tibial artery is 1.19. The left ankle brachial index by the dorsalis pedis is 1.15. The left digital-brachial index is 1.04. VL/Lower Ext Art Exam w/o Exercis Interpretation Summary Triphasic Doppler waveforms are noted at ankle level bilaterally. Pulse-volume recordings appear satisfactory at all levels bilaterally. Resting ankle-brachial indices are norm al bilaterally. Digital-brachial indices are normal bilaterally. There is no evidence of significant arterial occlusive disease in the lower ext remities bilaterally. Ordering Physician: Nithya Harrell Referring Physician: Nithya Harrell Performed By: Tia Alonso RDCS/RVT
== END ==
PROVIDERS: PCP Nurse Practitioner; Referring Provider Nurse Practitioner; Visit Provider Nurse Practitioner
DX: R09.89 Other specified symptoms and signs involving the circulatory and respiratory systems (principal); R94.138 Abnormal results of other function studies of peripheral nervous system; R94.128 Abnormal results of other function studies of ear and other special senses
CPT/HCPCS: 93923

== ENCOUNTER → 2020-11-16 10:55 | Outpatient (CLI) | payer MEDICARE, SELFPAY ==
--- NOTE | 2020-11-16 11:01 | RAD_ITS ---
STUDY: X-RAY - RIGHT KNEE REASON FOR EXAM: Male, 80 years old. Right knee pain. TECHNIQUE: 3 view(s) of the knee. COMPARISON: None. FINDINGS: Osteopenia. Superior patellar spur. Moderate arthrosis of the medial compartment. Mild arthrosis of the lateral compartment. Moderate arthrosis of the patellofemoral compartment with osteophyte formation. Small joint effusion. The soft tissue structures are otherwise unremarkable. RAD/Knee 3 Views IMPRESSION: Osteopenia with superior patellar spur. Tricompartmental arthrosis, most marked in the medial and patellofemoral compartment. No acute abnormality, erosive changes or periostitis. Electronically Signed: Bi King MD at 12:01 EDT , Service support ,
== END ==
PROVIDERS: PCP Nurse Practitioner; Referring Provider Anesthesiology Pain Medicine; Visit Provider Anesthesiology Pain Medicine
DX: M25.561 Pain in right knee (principal)
CPT/HCPCS: 73562

== ENCOUNTER 2021-03-02 09:31 | Outpatient (CLI) | payer MEDICARE, SELFPAY ==
--- NOTE | 2021-03-02 09:41 | US_ITS ---
STUDY: RENAL ULTRASOUND - COMPLETE REASON FOR EXAM: Male, 81 years old. URINARY RETENTION/UTI TECHNIQUE: Ultrasound evaluation of the kidneys was performed with real-time and static zuluaga-scale imaging. COMPARISON: None. FINDINGS: RIGHT KIDNEY: Normal location of the right kidney, which is normal in size. The right kidney measures 11 cm x 4.8 cm x 5.1 cm. There is a normal cortex of the right kidney. The renal cortex measures 1.6 cm. There is no right renal mass or cyst. There are no right renal calculi. There is no right hydronephrosis. DISTAL RIGHT URETER: There is non-visualization of the distal right ureter. There is no demonstrated right ureterovesical junction calculus. There is no demonstrated right ureteral jet. LEFT KIDNEY: Normal location of the left kidney, which is normal in size. The left kidney measures 10.4 cm x 5.7 cm x 5.6 cm. There is a normal cortex of the left kidney. The renal cortex measures 1.5 cm. There is a 1.4 cm x 1.2 cm x 1.3 cm left renal cyst. There are no left renal calculi. There is no left hydronephrosis. DISTAL LEFT URETER: There is non-visualization of the distal left ureter. There is no demonstrated left ureterovesical junction calculus. There is no demonstrated left ureteral jet. BLADDER: The distended urinary bladder has a volume of 77 ml. The empty urinary bladder has a volume of 0 ml. There is a normal wall thickness of the distended urinary bladder. There is no demonstrated mass within the urinary bladder. There are no demonstrated bladder calculi. US/Kidney and Bladder IMPRESSION: Small left renal cyst. No post void residual. Electronically Signed: Ronnell Stiles MD at 10:16 EST , Service support ,
== END 2021-03-02 23:59 | disposition short-term general hospital (02) ==
PROVIDERS: PCP Nurse Practitioner; Referring Provider Internal Medicine; Visit Provider Internal Medicine
DX: R33.9 Retention of urine, unspecified (principal); R39.9 Unspecified symptoms and signs involving the genitourinary system
CPT/HCPCS: 76770

== ENCOUNTER 2021-04-04 11:01 | Day surgery (SDC) | payer MEDICARE, SELFPAY ==
--- NOTE | 2021-04-02 10:14 | EKG12_ITS ---
Test Reason : PREOP Blood Pressure : / mmHG Vent. Rate : 070 BPM Atrial Rate : 070 BPM P-R Int : 168 ms QRS Dur : 108 ms QT Int : 426 ms P-R-T Axes : 020 037 033 degrees QTc Int : 460 ms Sinus rhythm with Premature atrial complexes Otherwise normal ECG Confirmed by RADHA GANDHI, NAT ([id number]), writer editor STACEY QUIÑONES ([id number]) on 04/03/2021 10:46:38 AM Referred By: Cesario Lemos Confirmed By:NAT GARCIA MD
[2021-04-04] VITALS (13 sets, daily range): BP systolic 110–160; BP diastolic 63–87; PULSE 55–90; RESP 16–18; TEMP 36.2–36.8; O2SAT 94–99; BMI 31.6
[2021-04-04] MEDS: Lactated Ringers 1,000 ML 15 ML IV ×2 (12:34→16:43)
--- NOTE | 2021-04-04 15:12 | PCM.HP.STD ---
HPI - General HPI Narrative PRABHU BUCIO, is a 81 M who presents for a TURP h/o recurrent UTI and bph with obstruction PFSH Medical History (Updated 03/28/21 @ 13:27 by Ana Mackey) Abrasion Ambulates with cane Arthritis B-cell lymphoma Back problem Basal cell carcinoma Former smoker Glaucoma Headache Hearing problem Heart disease High cholesterol History of edema History of leukemia Hypertension Leukopenia Neutropenia Non-Hodgkin lymphoma Prostate troubles Uses wheelchair UTI (urinary tract infection) Walker as ambulation aid Wears glasses Home Medications ascorbic acid (vitamin C) [Vitamin C] 500 mg PO DAILY@0800 06/17/14 [History Last Taken 03/07/16] cyanocobalamin (vitamin B-12) 1,000 mcg PO DAILY 06/17/14 [History Last Taken 03/06/16] finasteride 5 mg PO DAILY 06/17/14 [History Last Taken 03/06/16] gabapentin 300 mg PO TID 06/17/14 [History Last Taken 03/07/16 06:00] saw palmetto 450 mg PO QODAY 06/17/14 [History Last Taken 03/06/16] Cholecalciferol (Vitamin D3) [Vitamin D3] 50,000 unit PO TINOCO 02/02/15 [History Last Taken Unknown] acetaminophen 1,000 mg PO DAILY 03/28/21 [History Last Taken Unknown] rosuvastatin 20 mg PO DAILY 03/28/21 [History Last Taken Unknown] ciprofloxacin HCl [Cipro] 500 mg PO BID #14 tab 04/04/21 [Rx Last Taken Unknown] Allergy/AdvReac Type Severity Reaction Status Date / Time No Known Allergies Allergy Verified 04/04/21 12:24 Family History Father Kidney disease Heart disease Surgical History (Updated 03/28/21 @ 13:27 by Ana Mackey) History of back surgery History of hip replacement History of local excision of skin lesion History of tonsillectomy History of total left knee replacement (TKR) Social History Smoking Status: Former smoker Vital Signs Vital Signs Vital Signs: 04/04/21 12:26 Temperature 97.1 F L Temperature Source Temporal Pulse Rate 55 L Respiratory Rate 16 Respiratory Pattern Normal Blood Pressure 120/87 H Blood Pressure Mean 98 Blood Pressure Source Monitor Blood Pressure Position Sitting Blood Pressure Location Right Arm Pulse Ox 97 Oxygen Delivery Method Room Air Weight Weight: 112 kg Body Mass Index (BMI) 31.6
--- NOTE | 2021-04-04 15:12 | PCM.DC ---
Discharge Instructions Diet Discharge Diet: No restrictions Activity Discharge Activity: May Not Drive (while taking narcotic pain medications.) Dressing / Incision Call your doctor if you observe: Fever of 101 or Higher Follow Up Care Please Follow Up With: Cesario Lemos MD When: Call [phone] for an appointment Test Results: Test results from this visit will be discussed in further detail at your follow-up appointment, if applicable. Discharge Plan Admission Primary Reason for Your Visit: Brandiep Attending Provider: Cesario Lemos Primary Care Provider: Nithya Harrell NP Instructions Patient Instructions: TUR Home Recovery Discharge Orders/Prescriptions Prescriptions: New ciprofloxacin HCl [Cipro] 500 mg tablet 500 mg PO BID Qty: 14 RF: 0 Continued ascorbic acid (vitamin C) [Vitamin C] 500 MG tablet 500 mg PO DAILY@0800 RF: 0 saw palmetto 160 MG capsule 450 mg PO QODAY RF: 0 gabapentin 300 MG capsule 300 mg PO TID RF: 0 finasteride 5 MG tablet 5 mg PO DAILY RF: 0 cyanocobalamin (vitamin B-12) 2,000 MCG tablet 1,000 mcg PO DAILY RF: 0 Cholecalciferol (Vitamin D3) [Vitamin D3] 5,000 UNIT capsule 50,000 unit PO TINOCO RF: 0 rosuvastatin 20 mg Tablet 20 mg PO DAILY RF: 0 acetaminophen 500 MG tablet 1,000 mg PO DAILY RF: 0 Discontinued aspirin 325 MG tablet 325 mg PO DAILY RF: 0 Referrals / Follow Up: Cesario Lemos MD [STAFF PHYSICIAN] - Nithya Harrell NP, PANDA-C [Primary Care Provider] - Disposition Disposition (needs filled in before D/C Order can be placed): Home, Self Care
[2021-04-04] MEDS: Cefazolin 2 GM in 0.9% Normal Saline 100 ML IV (15:23)
--- NOTE | 2021-04-04 16:07 | OP.PCM_ITS ---
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 We discussed how a prostate resection is done and we discussed the risk of the surgery including, bleeding, infection, retrograde ejaculation, changes with ejaculation or intercourse,. We discussed the possibility that the resection of the prostate may not alleviate his urinary symptoms. We discussed the small risk of developing scar tissue along the urethral channel and strictures. We also discussed the chance of the prostate could grow back and he may need further surgery or treatment in the future for prostate problems. Patient was taken back to the operating room, timeout procedure was performed, he was identified and marked and placed on the operating room table. He underwent general anesthesia. He was placed in dorsolithotomy position. Penis and testicles were prepped and draped in usual sterile fashion. Went into the bladder using the visual obturator with a resectoscope. Once inside the bladder identified the right and left ureteral orifice. I then identified the prostate and the anatomy of the prostate. I marked out the area of the sphincter and the verumontanum was identified. I then proceeded with the prostate resection first resected the median lobe. And then resected the right lobe of the prostate. Then to resect the left lobe of the prostate. I then resected the apical tissue of the prostate. This was a complete resection of all obstructive tissue to improve voiding and relieve obstruction. I then made sure that there was no injury to the sphincter or the verumontanum was still intact. At the end of the resection all the chips were Ellik out of the bladder. I then identified the left and right ureteral orifice and these were confirmed to be in good position and effluxing and not injured. The resectoscope was removed, a 22 Serbian catheter was placed into the bladder on continuous irrigation. And the urine was fairly light pink color and draining normally. He was taken back to the PACU in good condition. CPT 13593 Surgeon: Cesario Lemos Type of Anesthesia: General Drains: 22 Serbian three-way Kraus Admit VTE Documentation VTE Present on Admission: No VTE Mechan Device Prophylaxis: SCD's VTE Pharm Prophylaxis ordered?: No
[2021-04-04] MEDS: Atorvastatin Calcium 40 MG Tablet PO (21:26)
[2021-04-04] MEDS: Gabapentin 300 MG Capsule PO (21:26)
[2021-04-04] MEDS: Ciprofloxacin 500 MG Tablet PO (21:26)
--- NOTE | 2021-04-05 | PROS_PTH ---
PATIENT: PRABHU BUCIO [place] [facility] [id number] AGE/SX: 81/M ROOM: RE04/04/[address]: Dr. Cesario Lemos MD : 1940 BED: DIS: 04/05/2021 SPEC #: [id number] RECD: 04/05/21 12:12 STATUS: TERA VLADIMIR #: [id number] RAIN: 04/05/21 00:[address]: Cesario Lemos DEPT: SURGICAL PATHOLOGY RECD BY: Beltran Fitzpatrick ENTERED: 04/05/21 14:10 SP TYPE: TURP OTHR DR: Nithya Harrell, WORK STUDY STUDENT-C Tissues: Prostate, NOS Procedures: Surgery Specimen Level IV HEADER OPERATION: Cysto, TUR prostate, Olympus PRE-OP DIAGNOSIS: Recurrent UTI and BPH with obstruction TISSUE SUBMITTED: Prostate tissue MICROSCOPIC DIAGNOSIS Prostate tissue, TUR: Benign prostatic hyperplasia, glandular and stromal type. Atypical lymphoid aggregate consistent with involvement by non-Hodgkin B-cell lymphoma, favor follicular lymphoma, grade 1. See comment. NAS:halle 04/10/2021 COMMENT Immunohistochemistry ([id number]) supports the above diagnosis. Please make reference to previous specimens ([id number]) prostate, right base, needle core biopsy with diagnosis of ?prostatic adenocarcinoma? 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 Case has been reviewed in consultation with Dr. Daugherty who concurs with the above diagnosis. IDC:AM MICROSCOPIC DESCRIPTION Slides are reviewed. GROSS DESCRIPTION Received is one container labeled with the patient's name and designated prostate tissue. The specimen consists of multiple irregular fragments of pink-alberts, rubbery, soft tissue that in aggregate weigh 11.6 gm and measure in aggregate 5 x 5 x 5 cm. Sports Equipment Repairer tissue is submitted in ten cassettes. / NAS:halle 04/05/2021 TC:0 CPT: 10456
--- NOTE | 2021-04-05 | IMM_PTH ---
PATIENT: PRABHU BUCIO [place] [facility] [place][id number] AGE/SX: 81/M ROOM: RE04/04/[address]: Dr. Cesario Lemos MD : 1940 BED: DIS: 04/05/2021 SPEC #: [id number] RECD: 04/06/21 13:10 STATUS: TERA REQ #: [id number] RAIN: 04/05/21 00:[address]: Cesario Lemos DEPT: IMMUNOHISTOCHEMISTRY RECD BY: Olinda Alfaro ENTERED: 04/06/21 13:11 SP TYPE: IMMUNO OTHR DR: Nithya Harrell, COMPLIANCE AIDE-C Tissues: Prostate, NOS Procedures: BCL-2 (add) BCL-6 (add) CD10 (add) CD20 (add) CD23 (add) CD43 (add) CD45 (add) CD5 (add) CD79A (add) CYCLIN (add) KI-67 (add) CD3 (initial) PHYSICIAN & [address] [address] SPECIMEN INFORMATION: Tissue Source: Prostate tissue Clinical Info: Recurrent UTI, BPH with obstruction Specimen Number: [id number] CPT code: 39582, 13199 x11 METHODOLOGY: Deparaffinized sections of prefer/formalin-fixed tissue or PAP/DQ stained slides are incubated with monoclonal/polyclonal antibodies/oligonucleotide probes. Localization is made via biotin free immunoperoxidase method. Appropriate controls are performed and reacted as expected. Results on target cell population are indicated in the following table: RESULTS: ANTIBODY / CLONE RESULT CD3 (PS1) negative CD5 (SP10) negative CD20 (L26) positive CD45 (RP2/18) positive CD79a (11E3) positive BCL-2 (bcl-2/100/D5) positive CD43 (L60) negative CD10 (56C6) positive CD23 (1B12) positive BCL-6 (TP308P/A8) positive Cyclin D1/BCL-1 (SP4) negative Ki-67 (30-9) positive, low to moderate These tests were developed and their performance characteristics determined by [facility]. They may not have been cleared or approved by the U.S. Food and Drug Administration. The FDA has determined that such clearance or approval is not necessary. The above immunohistochemical/dualISH markers are ordered and reviewed by the Pathologist. INTERPRETATION: Prostate, TUR: Consistent with involvement by non-Hodgkin B-cell lymphoma, favor follicular lymphoma. SJ:halle 04/10/2021 Case has been reviewed in consultation with Dr. Daugherty who concurs with the above diagnosis. IDC:AM
[2021-04-05] MEDS: Ibuprofen 600 MG Tablet PO (00:32)
[2021-04-05 03:44] VITALS: BP 110/54; PULSE 59; RESP 15; TEMP 36.6; O2SAT 93
[2021-04-05 04:00] VITALS: RESP 15
[2021-04-05 06:00] VITALS: BP 104/62; PULSE 50; RESP 15; TEMP 37.2; O2SAT 94
[2021-04-05] MEDS: Gabapentin 300 MG Capsule PO (06:35)
--- NOTE | 2021-04-05 07:35 | PCM.PN.GU ---
Subjective Subjective Status post TURP doing well urine is fairly clear we can remove the Kraus catheter this morning and discharge after voiding. Objective Data Objective Data Vital Signs: Vital Signs Temp Pulse Resp BP Pulse Ox 98.9 F 50 L 15 104/62 94 04/05/21 06:00 04/05/21 06:00 04/05/21 06:00 04/05/21 06:00 04/05/21 06:00 Oxygen Flow Rate (L/min) 1 Oxygen Delivery Method Room Air Weight: 112 kg Body Mass Index (BMI) 31.6 Intake & Output: Intake and Output for Last 24 Hours 04/03/21 04/04/21 04/05/21 23:59 23:59 23:59 Intake Total 1110 / 1510 500 / 500 Output Total 300 / 300 Balance 810 / 1210 500 / 500
--- NOTE | 2021-04-05 09:07 | NURSING ---
0830 f/c 30 cc bulb deflated and f/c removed-pt given bath wipes to clean self with and was dangling at edge of bed-denies pain pt aware to void in urinal or hat placed in toilet so that we can measure
[2021-04-05] MEDS: Acetaminophen 500 MG Tablet 1000 MG PO (10:10)
[2021-04-05] MEDS: Ciprofloxacin 500 MG Tablet PO (10:11)
[2021-04-05 13:23] VITALS: BP 105/69; PULSE 66; RESP 18; TEMP 37.1; O2SAT 93
== END 2021-04-05 14:48 | disposition home or self-care (01) ==
LOC: SDC 11:11 → AC 11:12 → MS3 16:02
PROVIDERS: PCP Nurse Practitioner; Referring Provider Urology; Visit Provider Urology
PROC: (CPT 52601; principal; 2021-04-04 13:25)
DX: C61 Malignant neoplasm of prostate (principal); N40.1 Benign prostatic hyperplasia with lower urinary tract symptoms; N13.9 Obstructive and reflux uropathy, unspecified; R39.14 Feeling of incomplete bladder emptying; I10 Essential (primary) hypertension; E78.00 Pure hypercholesterolemia, unspecified; N32.89 Other specified disorders of bladder; Z79.82 Long term (current) use of aspirin; Z79.899 Other long term (current) drug therapy; Z87.891 Personal history of nicotine dependence; Z96.652 Presence of left artificial knee joint; M19.91 Primary osteoarthritis, unspecified site
CPT/HCPCS: 52601; 00914; 88305; 88341; 88342; 93005; J7120; J2405

== ENCOUNTER → 2021-08-23 | Outpatient (CLI) | payer MEDICARE, SELFPAY ==
[2021-08-23 11:31] LABS: PSA,Total- Diagnostic 1.05 ng/mL (0.0-4.0)
== END | disposition home or self-care (01) ==
LOC: LAB 10:16
PROVIDERS: PCP Nurse Practitioner; Referring Provider Urology; Visit Provider Urology
DX: C61 Malignant neoplasm of prostate (principal)
CPT/HCPCS: 36415; 84153

== ENCOUNTER → 2021-10-23 | Outpatient (CLI) | payer MEDICARE, SELFPAY ==
--- NOTE | 2021-10-23 07:33 | CT_ITS ---
STUDY: CT SCAN LOWER EXTREMITY RIGHT REASON FOR EXAM: Male, 81 years old. RIGHT KNEE SHIN RADIATION DOSAGE (If Supplied By Facility): CTDIvol = ( 18.98 ) mGy, DLP = ( 1375.26 ) mGycm. Individualized dose optimization techniques were used for this CT.? TECHNIQUE: Multiple axial tomographic images of the right lower extremity were obtained. Coronal and sagittal reconstruction was obtained as well. COMPARISON: None. FINDINGS: Imaging of the right hip joint was performed. There is evidence of a right total hip prosthesis. There is good alignment. No abnormality is seen. Imaging of the knee joint was obtained. There is a marked degree of joint space narrowing of the medial compartment of knee joint with degenerative spur formation along the lateral compartment. Moderate degree of osteoarthritis of the patellofemoral joint. Small joint effusion. Imaging of the ankle joint was obtained. Multiple cystic changes are seen in the distal tibia as well as the talus and calcaneus. This may represent patchy osteoporosis. Diffuse soft tissue swelling. A spur formation is seen at the insertion of the Achilles tendon. CT/Extremity Lower without Contra IMPRESSION: Moderate degree of joint space narrowing of the medial compartment of knee joint. Moderate degree of the joint space narrowing of the patellofemoral joint. Multiple well-defined lucencies are seen in the distal tibia, calcaneus and talus suggestive of a patchy osteoporosis. Electronically Signed: Ronnell Stiles MD at 12:24 EDT ,
== END | disposition home or self-care (01) ==
LOC: CT 11:15
PROVIDERS: PCP Nurse Practitioner Family; Referring Provider Orthopaedic Surgery; Visit Provider Orthopaedic Surgery
DX: Z01.818 Encounter for other preprocedural examination (principal); M17.11 Unilateral primary osteoarthritis, right knee
CPT/HCPCS: 36415; 73700; 80048; 82040; 83036; 83735; 85025; 87081

== ENCOUNTER 2021-11-05 16:34 | Observation (INO) | payer MEDICARE, SELFPAY ==
[2021-10-23 13:18] LABS: Albumin, Serum 3.8 g/dL (3.2-5.0); Anion Gap 7 (5-15); BUN 16 mg/dL (7-18); BUN/Creat Ratio 15.2 RATIO (10-20); Chloride 108 mmol/L (98-107); Creatinine, Serum 1.05 mg/dL (0.70-1.30); EST Glomerular Filtration Rate 72 mL/min (>60); Est Glom Filt Rate - Afr Amer 87 mL/min (>60); Glucose 102 mg/dL (74-106); Potassium 4.6 mmol/L (3.5-5.1); Sodium Level 144 mmol/L (136-145)
[2021-10-23 13:21] LABS: Hemoglobin A1c 5.9 % (3.8-5.6)
[2021-10-23 19:27] LABS: Absolute Lymphocyte Count 1.42 X10^3/uL (0.83-4.51); Absolute Neutrophil Count 4.1 X10^3/uL (2.0-7.7); Basophil# 0.02 X10^3/uL; Basophil% 0.3 % (0-1); Eosinophil# 0.13 X10^3/uL; Eosinophils% 2.1 % (0-5); Hematocrit 43.6 % (40-54); Hemoglobin 14.8 g/dL (13.0-16.5); Lymphocyte # 1.42 X10^3/ul (0.83-4.51); Lymphocyte % 22.8 % (19-41); Mean Corp Hgb Conc 33.9 g/dL (32-36); Mean Corpuscular Hgb 30.8 pg (27.0-32.0); Mean Corpuscular Volume 90.6 fL (80-94); Mean Platelet Vol. 12.3 fl (6.2-12.0); Monocyte# 0.59 X10^3/uL; Monocyte% 9.5 % (0-10); NRBC Flagged by Analyzer 0 % (0-5); Neutrophil # 4.06 X10^3/uL (2.7-7.7); Neutrophil % 65.1 % (47-70); Platelet Count 122 K/mm3 (150-450); RBC Distribution Width CV 13.2 % (11.6-14.6); RBC Distribution Width SD 43.8 fl (35.1-43.9); Red Blood Count 4.81 M/mm3 (4.6-6.2); White Blood Count 6.2 K/mm3 (4.4-11.0)
[2021-10-24 11:49] LABS: Magnesium 2.3 mg/dL (1.6-2.6)
--- NOTE | 2021-10-31 14:38 | CASEMGMT ---
CHRISTINA LESTER Assessment: TC to pt for initial transition planning/care coordination assessment. RN TAYLER introduced self and role at [facility], pt voices understanding and consents to assessment. Care providers, pharmacy, and demographics verified/updated. Admitting Dx: R total knee with leland PCP: Diana Ayala Specialists:Ruddy, ortho; Jaime, GI; Randy, pain mgmt, Prah, onc Preferred Pharmacy: [facility] Insurance: [employer] [facility] Prescription Benefit: yes LW/HPOA: Pt denies having a LW/DPOA and denies need for info regarding AD. LNOK: Xiao Gracemer, step dtr; Dorene Roy, stepdtr Living Arrangements: Pt lives alone in a single story house with 2 steps to enter at all entrances. Pt states if he enters through the deck entrance there is railing for the steps. Pt reports he is I in ADL's and uses a shoe horn and sock aid for LB dressing. Pt denies concerns at home. Transportation: Pt drives self locally and denies concerns with transportation. Pt's step dtrs or son in laws can transport pt post surgery. DME/HHC/SNF: Pt has a FWW, cane, shoe horn, sock aid and shower chair at home. Pt denies hx of HHC or SNF stays. Pt states no concerns with going home at time of dc. He states his son in laws may spend the night with him post surgery and otherwise they live close to help. He states 5 days post surgery he has outpt PT set up at [facility]. Pt states no further concerns/needs. CM to follow. Advised pt to ask CM if any further question/concerns/needs arise during hospitalization, voices understanding. Pt Goal: Home with outpt therapy already set up Plan: Home with outpt therapy already set up and family assistance
[2021-11-05] VITALS (12 sets, daily range): BP systolic 108–159; BP diastolic 51–87; PULSE 52–87; RESP 16–20; TEMP 35.8–36.7; O2SAT 93–100; BMI 31.6
[2021-11-05] MEDS: Lactated Ringers 1,000 ML 125 ML IV ×2 (08:57→15:10)
[2021-11-05] MEDS: Acetaminophen 500 MG Tablet 1000 MG PO ×3 (08:58→21:50)
[2021-11-05] MEDS: Gabapentin 600 MG Tablet PO (08:59)
--- NOTE | 2021-11-05 10:30 | KNEE_PTH ---
PATIENT: PRABHU BUCIO LOC: [facility] U#:[id number] AGE/SX: 81/M ROOM: [facility] [place] RE11/05/[address]: Dr. Arvin Fox DO : 1940 BED: 1 DIS: 11/08/2021 SPEC #: [id number] RECD: 11/05/21 14:02 STATUS: TERA VLADIMIR #: [id number] RAIN: 11/05/21 10:[address]: Arvin Fox DEPT: SURGICAL PATHOLOGY RECD BY: Nitza Cuadra ENTERED: 11/06/21 07:48 SP TYPE: TOTAL KNEE OTHR DR: Diana Ayala, FISH CUTTING MACHINE OPERATOR-C Tissues: Knee, NOS Procedures: Decalcification bone/plaque Surgery Specimen Level IV HEADER OPERATION: ERAS, total knee replacement robotic arm assist PRE-OP DIAGNOSIS: Osteoarthritis left knee TISSUE SUBMITTED: Right knee debrided bone and tissue MICROSCOPIC DIAGNOSIS Bone and tissue of right knee, total knee resection: Severe degenerative joint disease. AM:halle 11/09/2021 MICROSCOPIC DESCRIPTION Slides are reviewed. GROSS DESCRIPTION Received is one container designated right knee debrided bone and tissue. The specimen consists of multiple fragments of alberts-yellow bone measuring in aggregate 12 x 10 x 3 cm. No soft tissue is identified. A number of bony fragments contain articular surfaces consistent with tibial plateau and femoral condyle and displaying prominent osteophyte formation, eburnation, and bone erosion. Help Desk Assistant sections are submitted in one cassette after decalcification. / NAS:halle 11/06/2021 TC:5 CPT: 22336, 58263
[2021-11-05] MEDS: Cefazolin 2 GM in 0.9% Normal Saline 100 ML IV (11:35)
[2021-11-05] MEDS: TXA 1000mg in NS100 100ml (IVPB at Incision) 660 MG IV (11:50)
[2021-11-05 12:15] LABS: Bedside Glucose 154 mg/dL (74-106)
[2021-11-05] MEDS: TXA 1000mg in NS100 100ml (IVPB at Closure) 660 MG IV (13:05)
--- NOTE | 2021-11-05 13:38 | PCM.OPRPT ---
Report of Operation Date of Procedure: 11/05/21 Pre-Operative Diagnosis: OA right knee Post-Operative Diagnosis: same Surgery/Procedure Performed:: Right TKR Description of Surgical Findings:: Report of Operation Date of Procedure: Preoperative Diagnosis: [ ] knee primary osteoarthritis Postoperative Diagnosis: [ ] knee primary osteoarthritis Operation: Robotic Assisted Knee Total Arthroplasty, [ ] knee Surgeon: Dr Arvin Fox DO Clinical Program Consultant: Maricarmen Anderson PA-C Anesthesia: spina Anesthesiologist: Findings: Stable knee with good patella tracking Specimen(s): Bony cuts Complications: No intraoperative complications Estimated Blood Loss: 20 cc IV Fluids: 1000 cc crystalloid Implants Used: 1. Phillip Triathlon press-fit CR size 6 femur 2. Phillip Triathlon size 7 tibia 3. 32 mm patella 4. 9 mm CS polyethylene Brief History Operative Indications: [ (81 y/o male) ] with history of [ right ] knee osteoarthrosis with radiographic findings with loss of joint space, osteophyte formation and subchondral sclerosis. Failed conservative measures as mentioned in the H&P. Discussion of total knee arthroplasty as well as risk and benefits were discussed with the patient including but not limited to blood loss, DVTs, PEs, neurovascular damage, general risk of anesthesia including loss of life, and stiffness or instability were also discussed with the patient. Patient demonstrated understanding and was able to sign informed consent. Procedure: On the date of procedure, patient's [right ] lower extremity was marked in the preoperative area. The patient was then taken back to the operating room where that patient was placed on the table in the supine position. All bony prominences were identified and well-padded. Anesthesia assumed control of the C-spine and airway throughout the remainder of the procedure. A tourniquet was placed on the [right ] upper thigh and the leg was prepped in a sterile fashion. The surgeon then scrubbed at this time. Upon reentering the room, the [right ] lower extremity was draped in a standard orthopedic fashion. A timeout was then called and everyone agreed upon the side, the site, the procedure to be performed, patient's identity and antibiotics given. Esmarch bandage was used to exsanguinate the extremity and the tourniquet was placed up to 250 mmHg with the knee in flexion. A midline skin incision was made and a sharp dissection was taken down through skin, subcutaneous tissue and fat. The standard medial parapatellar incision was made and the patella was subluxed laterally. An appropriate deep MCL release was done and the fat pad was resected. Our attention was then directed to the patella. The patella was everted and a flat resection was made. The knee was then flexed up and 2 femoral pins were placed inside the incision and 2 tibial pins were placed outside the incision in the medial tibia bicortically. Once this was completed, the 2 checkpoints in the femur and tibia were placed. Knee was then flexed up and the bony landmarks were registered. Once the was completed, the knee taken through range of motion and manually stressed allowing us to plan for an appropriate tibial cut. The robotic arm was brought into the field sterilely and checkpoint and saw were registered. Based on the patient's deformity, the tibial cut was made in [ 2 degrees varus ]. At this time, the tensioner was then placed in the joint and ligament tension was checked at 90 degrees and full extension. Based on the patient's ligamentous tension, appropriate adjustments were made to the operative plan and ligament releases were done. Once we were happy with our operative plan with balanced flexion and extension gaps, our attention was directed to the femur. The robot was brought into the field sterilely and registered. Posterior condylar cuts, anterior chamfer cuts and anterior cuts were appropriately made for a [size 6 ] femur. When these were completed, the saws were switched out in the distal femoral and posterior chamfer cuts were made. Protecting the soft tissue throughout this time. A [size 7 ] base plate was selected. The knee was flexed to 90 degrees and soft tissues and posterior osteophytes were removed from the joint. 40 cc of the periarticular injection was injected into the posterior medial corner of the joint. The appropriate trials were then placed on the femur and tibia. A trial polyethylene was trialed to ensure proper balancing and stability of the knee. The appropriate tibial internal rotation was then marked with a bovie. Our attention was then directed to the patella. The lug holes were drilled and the patella trial was placed. Patellar tracking was checked and deemed appropriate. Once we were happy, lug holes were drilled for the femur and trial components were removed. The tibia was subluxed and pinned into place and the keel was punched and drilled appropriately. Final components were verified and opened. The wound was copiously irrigated with normal saline. The components were impacted into place with the tibia, femur and finally the patella. The trial poly component was placed and the knee was placed in full extension. The tracking, alignment and balance were verified and a [ 9 mm CS ] polyethylene component was placed. Once the final components were placed an Irrisept lavage was performed and the wound was copiously irrigated with normal saline solution and the periarticular injection was given. the wound was closed in a layer-quinteros fashion using #1 vicryl interrupted sutures for the arthrotomy, 2-0 interrupted vicryl suture for the subcuticular layer and majo for final skin closure. A sterile compressive dressing was then placed. The patient was then awakened from anesthesia, transferred to the rluquillo and transferred to the PACU for recovery. My physician psychiatric technician assistant was a vital part of this case. He was important in appropriate retraction during the case, and protection of soft tissues during bony cuts. His intimate knowledge of the case and my steps aided in safe and expedient completion of the procedure as well as appropriate position of the leg during the case. He was also vital in assisting with closure under my direct supervision. Due to the complexity of this case, robotic arm was used to assist in the surgery to improve accuracy and clinical outcomes. Post-op Plan: DVT ppx; ASA 81 mg BID, thigh high compression stockings Follow up: in office in 2 weeks for wound check PT: to start POD #0 at hospital, outpatient PT should be arranged. Preoperative antibiotic: Ancef 2 grams IV Arvin Fox DO Surgeon: Arvin Fox pin puller: Maricarmen Anderson Type of Anesthesia: Spinal Anesthesiologist: Kip Sanchez Estimated Blood Loss (mL): 20 cc Fluids Replaced: 1000 cc crystalloid Admit VTE Documentation VTE Present on Admission: No VTE Mechan Device Prophylaxis: SCD's and Thigh High SANGEETA Hose VTE Pharm Prophylaxis ordered?: Yes
--- NOTE | 2021-11-05 14:20 | RAD_ITS ---
STUDY: X-RAY - RIGHT KNEE REASON FOR EXAM: Male, 81 years old. Post op -- AP and Lateral xray of operative knee in PACU TECHNIQUE: 2 view(s) of the knee. COMPARISON: Comparison is made with prior study 11/16/2020. FINDINGS: Normal visualized distal femur. Normal visualized proximal tibia and fibula. Normal proximal tibiofibular articulation. The patient is status post right total knee replacement. There is good alignment. Postoperative soft tissue changes. RAD/Knee 1 or 2 Views IMPRESSION: Status post right total knee replacement. There is good alignment. Postoperative soft tissue changes. Electronically Signed: Ronnell Stiles MD at 14:44 EDT ,
[2021-11-05] MEDS: Cefazolin 1 GM/50 ML BAG IV ×2 (15:10→23:57)
[2021-11-05] MEDS: Aspirin 81 MG TAB.CHEW PO (21:50)
[2021-11-05] MEDS: Senna/Docusate Sodium 1 Tablet 2 TABLET PO (21:50)
[2021-11-06 04:06] VITALS: BP 97/58; PULSE 60; RESP 18; TEMP 36.9; O2SAT 95
[2021-11-06 05:30] LABS: Hematocrit 39.6 % (40-54); Mean Corp Hgb Conc 32.8 g/dL (32-36); Mean Corpuscular Hgb 30.7 pg (27.0-32.0); Mean Corpuscular Volume 93.4 fL (80-94); Mean Platelet Vol. 11.6 fl (6.2-12.0); POSITIVE COUNT YES; Platelet Count 77 K/mm3 (150-450); RBC Distribution Width CV 13.2 % (11.6-14.6); RBC Distribution Width SD 44.6 fl (35.1-43.9); Red Blood Count 4.24 M/mm3 (4.6-6.2); White Blood Count 5.5 K/mm3 (4.4-11.0)
[2021-11-06 05:31] LABS: Scan Indicated on CBC? Y/N YES- FLAGS NOTED
[2021-11-06 05:43] LABS: Anion Gap 3 (5-15); BUN 13 mg/dL (7-18); BUN/Creat Ratio 15.2 RATIO (10-20); Calcium,Total 8.6 mg/dL (8.5-10.1); Chloride 112 mmol/L (98-107); Creatinine, Serum 0.86 mg/dL (0.70-1.30); EST Glomerular Filtration Rate 91 mL/min (>60); Est Glom Filt Rate - Afr Amer 110 mL/min (>60); Glucose 116 mg/dL (74-106); Potassium 4.3 mmol/L (3.5-5.1); Sodium Level 145 mmol/L (136-145)
[2021-11-06 06:03] LABS: Differential Comment SCANNED
[2021-11-06] MEDS: Acetaminophen 500 MG Tablet 1000 MG PO ×3 (06:11→21:41)
[2021-11-06] MEDS: 0.9% Saline Lock 10 ML Syringe IV (06:12)
[2021-11-06 10:00] VITALS: BP 139/67; PULSE 79; RESP 15; TEMP 36.9; O2SAT 97
--- NOTE | 2021-11-06 10:15 | CASEMGMT ---
Addendum entered by Keshia Jessica 11/06/21 11:38: 1115- CHRISTINA LESTER back into pt room to find out if patient was able to get 24/7 coverage. Pt asked for a 3 way call with both step dtrs, Hayden, CHRISTINA LESTER and patient. Proceeded with a 15 min discussion with family regarding dc plan. Currently pt plan is outpt therapy with son spending the night. Discussed that therapy is recommending 24/7 care if patient returns home for safety. Dtrs states they do not have the capability for 24 hour care currently. Dtrs requesting pt go to SNF for s/t rehab until he is safe to return home alone during the day. Pt dtr states pt did go to SNF post hip surgery and this greatly benefited pt as he lives alone. Pt is agreeable to SNF at this time, s/t. TC concluded with this as the plan and pt dtrs will care for his cat at home. Pt denies further needs. CHRISTINA LESTER explained MARTINEZ form, patient voiced understanding. Pt signed form and filed in chart. Pt provided with a copy of signed MARTINEZ form. Patient had no further questions or concerns at this time. Original Note: CHRISTINA LESTER spoke with therapy who is recommending 24/7 care for pt if he goes home for safety. CHRISTINA LESTER in to pt room, discussed dc plan. Pt states he needs to check with his daughters and see what their schedule is. Discussed options of family providing 24/7 care vs SNF. Pt wants to check their schedules first. CHRISTINA LESTER to check back to see what patient was able to secure.
[2021-11-06] MEDS: Aspirin 81 MG TAB.CHEW PO ×2 (10:38→21:41)
[2021-11-06] MEDS: Senna/Docusate Sodium 1 Tablet 2 TABLET PO ×2 (10:39→21:41)
--- NOTE | 2021-11-06 11:51 | CASEMGMT ---
Addendum entered by Amelie Edward 11/06/21 12:38: Social Work With pt permission, phone call to Dorene Roy and updated that TCU can accept and precert has been started. Dorene appreciative of information. CHLOE Jensen Original Note: Social Work RNCM updated SW that pt will not have 24 hour care at home and therapy does not feel he can return home alone. SW met with pt and introduced self and role of SW and discussed discharge plan. Pt confirms his family cannot assist him at home and that he will need Short term SNF. A list of SNF providers including quality and resource use data and consistent with the patient?s preferred geographic region, medical needs, and insurance network were provided from the [employer] Guide. Pt preferred provider is [facility]. Referral made to TCU and they are able to accept pt. Precert will be started at this time for SNF admission. SW will await determination by insurance. Plan: TCU, pending precert CHLOE Jensen
--- NOTE | 2021-11-06 12:20 | PN.ORTHO_ITS ---
Subjective Subjective Patient is s/p right sided total knee arthroplasty with Dr. Fox. Patient resting comfortably in bed. Rates pain 5/ 10 at rest. With movement 7/10. States taking oxycodone and Tylenol as needed and ice help to relieve pain. Patient has been up with therapy. Walking with the assit of a walker. Afebrile, no chest pain, shortness of breath, negative calf pain/ erythema, and no other signs of DVT. Objective Data Objective Data Vital Signs: Vital Signs Temp Pulse Resp BP Pulse Ox O2 Del Method O2 Flow Rate 98.4 F 79 15 139/67 H 97 Room Air 4 11/06/21 10:00 11/06/21 10:00 11/06/21 10:00 11/06/21 10:00 11/06/21 10:00 11/06/21 10:00 11/05/21 14:45 Oxygen Flow Rate (L/min) 4 Oxygen Delivery Method Room Air Weight: 112 kg Body Mass Index (BMI) 31.6 Intake & Output: Intake and Output for Last 24 Hours 11/04/21 11/05/21 11/06/21 23:59 23:59 23:59 Intake Total 2682 / 2682 50 / 50 Output Total 1600 / 1600 600 / 600 Balance 1082 / 1082 -550 / -550 Lab / Micro Data Result Diagrams: 11/06/21 05:08 11/06/21 05:08 Labs: Laboratory Results - last 24 hr 11/06/21 05:08: WBC 5.5, RBC 4.24 L, Hgb 13.0, Hct 39.6 L, MCV 93.4, MCH 30.7, MCHC 32.8, RDW Std Deviation 44.6 H, RDW Coeff of April 13.2, Plt Count 77 L, MPV 11.6, Differential Comment SCANNED 11/06/21 05:08: Sodium 145, Potassium 4.3, Chloride 112 H, Carbon Dioxide 30.0, Anion Gap 3 L, BUN 13, Creatinine 0.86, Estim Creat Clear Calc 77.00, Est GFR (M DRD) Af Amer 110, Est GFR (MDRD) Non-Af 91, BUN/Creatinine Ratio 15.2, Glucose 116 H, Calcium 8.6 Micro: Microbiology 10/23/21 11:21 Swab (Method) Nasal Screen MRSA/MSSA - Final Radiography Diagnostic Testing: Radiology Impression Knee X-Ray 11/05/21 14:20 IMPRESSION: Status post right total knee replacement. There is good alignment. Postoperative soft tissue changes. Electronically Signed: Ronnell Stiles MD at 14:44 EDT , Physical Exam Narrative Patient resting comfortably in bed No signs of acute distress Satting well on room air Limb is warm to touch, Sensation intact throughout entire lower extremity, including saphenous, sural, superficial and deep peroneal, and tibial distribution. DP/PT pulses bounding. Dorsi and plantar flexion 5/5 Dressing clear dry intact Calf nontender to palpation, no erythema, no edema. Negative Homans Assessment & Plan Assessment/Plan (1) Presence of total right knee joint prosthesis: PLAN: Patient is status post right total knee arthroplasty with Dr. Fox yesterday 11/05/2021 1. Will continue PT today. Weightbearing as tolerated 2. plan for discharge toTCU when approved by insurance. From orthopedic standpoint he is cleared for discharge 3. Patient will follow up for post op appointment in 2 weeks 5. WBC 5.5 no acute reactive leukocytosis 6. H/H 4.24/13.0: post operavtive anemia secondary to acute blood loss intraoperatively. Patient is asymptomatic at this time. No intraoperative complications. will continue to monitor. no acute interventions. 7. DVT prophylaxis : Aspirin 81 mg twice daily x4 weeks 8. Pain control: patient instructed to take tylenol 500mg 2 tablets TID. and oxycodone 1-2 tablets every 4-6 hours only as needed for pain control. 9. ok to remove post op dressing. post op day 5 (2) Status post total right knee replacement:
--- NOTE | 2021-11-06 12:27 | PCM.TXEXTCAR ---
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 Fox yesterday 11/05/2021 1. Will continue PT today. Weightbearing as tolerated 2. plan for discharge toTCU when approved by insurance. From orthopedic standpoint he is cleared for discharge 3. Patient will follow up for post op appointment in 2 weeks 5. WBC 5.5 no acute reactive leukocytosis 6. H/H 4.24/13.0: post operavtive anemia secondary to acute blood loss intraoperatively. Patient is asymptomatic at this time. No intraoperative complications. will continue to monitor. no acute interventions. 7. DVT prophylaxis : Aspirin 81 mg twice daily x4 weeks 8. Pain control: patient instructed to take tylenol 500mg 2 tablets TID. and oxycodone 1-2 tablets every 4-6 hours only as needed for pain control. 9. ok to remove post op dressing. post op day 5 (2) Status post total right knee replacement: Status: Acute Code(s): Z96.651 - Presence of right artificial knee joint Allergies/Procedures Done in Hospital Allergies No Known Allergies Allergy (Verified 11/05/21 08:46) Type of Care/Length of Stay Estimated LOS: Convalescent Care Less Than 30 days Type of Care Needed: Skilled Rehab Potential: Good Prognosis: Good Additional Orders/Day of Discharge Day of Discharge: 11/06/21 Discharge Plan Admission Admit Date/Time: 11/05/21 16:34 Attending Provider: Arvin Fox Primary Care Provider: Diana Ayala Discharge Orders/Prescriptions Prescriptions: New acetaminophen 500 mg Tablet 1,000 mg PO Q8 Qty: 90 0RF aspirin 81 mg Tablet,Chewable 81 mg PO BID Qty: 60 0RF Continued ascorbic acid (vitamin C) [Vitamin C] 500 MG tablet 500 mg PO DAILY@0800 Label Comments: Vitamin supplement saw palmetto 160 MG capsule 450 mg PO QODAY Label Comments: Supplement gabapentin 300 MG capsule 300 mg PO TID Label Comments: Neuropathy (nerve pain) finasteride 5 MG tablet 5 mg PO 1200 Label Comments: Enlarged prostate (BPH) cyanocobalamin (vitamin B-12) 2,000 MCG tablet 1,000 mcg PO TINOCO Label Comments: Vitamin supplement Cholecalciferol (Vitamin D3) [Vitamin D3] 5,000 UNIT capsule 50,000 unit PO TINOCO Label Comments: SUPPLEMENT rosuvastatin 20 mg Tablet 20 mg PO QHS Discontinued acetaminophen 500 MG tablet 1,000 mg PO QHS aspirin [Aspir-81] 81 mg Tablet,Delayed Release (Dr/Ec) 81 mg PO QHS Other Ambulatory Orders: Magnesium (Routine) Timeframe: 20211026 Facility: [facility] - Location: Laboratory Ordered By: Dr. Elbert Lakhani MRSA/SAID SCREEN (PRE SURG) (Routine) Timeframe: 20211026 Facility: [facility] - Location: Laboratory Ordered By: Dr. Arvin Fox Referrals / Follow Up: Diana Ayala NP-C [Primary Care Provider] - Disposition Disposition (needs filled in before D/C Order can be placed): Assisted Facility
--- NOTE | 2021-11-06 13:35 | CASEMGMT ---
Social Work Per RNCM, pt denies have advance directives and is not interested in additional information at this time. CHLOE Jensen
[2021-11-06 14:48] VITALS: BP 136/67; PULSE 86; RESP 16; TEMP 36.7; O2SAT 94
[2021-11-06] MEDS: Gabapentin 300 MG Capsule PO (15:58)
[2021-11-06 19:35] VITALS: BP 108/36; PULSE 76; RESP 18; TEMP 36.8; O2SAT 95
[2021-11-06] MEDS: oxyCODONE 5 MG Tablet PO (19:40)
[2021-11-06 21:36] VITALS: BP 104/43; PULSE 84; RESP 18; TEMP 36.8; O2SAT 95
[2021-11-07 02:29] VITALS: BP 104/45; PULSE 82; RESP 20; TEMP 36.6; O2SAT 93
[2021-11-07] MEDS: Acetaminophen 500 MG Tablet 1000 MG PO ×3 (06:02→21:22)
[2021-11-07 08:30] VITALS: BP 126/71; PULSE 79; RESP 19; TEMP 36.9; O2SAT 93
--- NOTE | 2021-11-07 10:28 | CASEMGMT ---
Social Work ABBE spoke with Marina in TCU and received message from Radha at [facility]. Peer to Peer is requested by insurance to make determination on SNF precertification. Peer to Peer must be completed by 1pm today by calling [phone] option 5. Phone call placed to Dr. Fox's office. ABBE was informed that both Dr. Fox and IFEANYI Bahena are in surgery all morning and will not return to the office until after 1pm. ABBE spoke to CHILD AD[employer]OCATE who just completed treatment with pt. CHILD ADVOCATE confirms pt would benefit from SNF placement as Pt requires MOD A for stairs, Min A for transfers, is only able to ambulate 30 ft prior to need for rest break and pt continues to have some confusion. ABBE placed phone call to [facility] and spoke with Radha and informed her that Peer to Peer cannot be completed by 1pm as physician and PA are in surgery. Peer to Peer time extended to 4pm today. Radha confirmed that PA can do Peer to Peer. ABBE inquired if today's therapy notes would be considered while waiting on peer to peer and Radha confirmed that they would be reviewed and if appropriate determination could be made to approve prior to Peer to Peer. ABBE updated Marina in TCU and she will send in updated clinicals. ABBE will request peer to peer from PA when she is out of surgery. CHLOE Jensen
[2021-11-07] MEDS: Aspirin 81 MG TAB.CHEW PO ×2 (10:35→21:22)
[2021-11-07] MEDS: Gabapentin 300 MG Capsule PO ×3 (10:35→17:16)
[2021-11-07] MEDS: Senna/Docusate Sodium 1 Tablet 2 TABLET PO (10:35)
[2021-11-07] MEDS: oxyCODONE 5 MG Tablet PO (10:38)
--- NOTE | 2021-11-07 12:50 | CASEMGMT ---
Social Work SW spoke with IFEANYI Bahena and informed that insurance is requesting a Peer to Peer prior to authorizing SNF placement. Maricarmen is agreeable that pt cannot return home at this time and agreeable to complete Peer to Peer. Maricarmen notified that Peer to Peer must be completed by 4pm today and phone number and instructions provided. ABBE will await determination from Peer to Peer. CHLOE Jensen
--- NOTE | 2021-11-07 12:54 | PCM.PN.ORT ---
Subjective Subjective Patient is s/p right sided total knee arthroplasty with Dr. oFx. Patient resting comfortably in bed. Rates pain 5/ 10 at rest. With movement 7/10. States taking oxycodone and Tylenol and ice help to relieve pain. Patient has been up with therapy. Walking with the assit of a walker. Afebrile, no chest pain, shortness of breath, negative calf pain/ erythema, and no other signs of DVT. Objective Data Objective Data Vital Signs: Vital Signs Temp Pulse Resp BP Pulse Ox O2 Del Method O2 Flow Rate 98.5 F 79 19 H 126/71 H 93 Room Air 4 11/07/21 08:30 11/07/21 08:30 11/07/21 08:30 11/07/21 08:30 11/07/21 08:30 11/07/21 08:30 11/05/21 14:45 Oxygen Flow Rate (L/min) 4 Oxygen Delivery Method Room Air Weight: 112 kg Body Mass Index (BMI) 31.6 Intake & Output: Intake and Output for Last 24 Hours 11/05/21 11/06/21 11/07/21 23:59 23:59 23:59 Intake Total 2682 / 2682 50 / 250 200 / 200 Output Total 1600 / 1600 600 / 600 Balance 1082 / 1082 -550 / -350 200 / 200 Lab / Micro Data Result Diagrams: 11/06/21 05:08 11/06/21 05:08 Micro: Microbiology 10/23/21 11:21 Swab (Method) Nasal Screen MRSA/MSSA - Final Physical Exam Narrative Patient resting comfortably in bed No signs of acute distress Satting well on room air Limb is warm to touch, Sensation intact throughout entire lower extremity, including saphenous, sural, superficial and deep peroneal, and tibial distribution. DP/PT pulses bounding. Dorsi and plantar flexion 5/5 Dressing some drainage that is dry serosanguineous. Stable from yesterday. Calf nontender to palpation, no erythema, no edema. Negative Homans Assessment & Plan Assessment/Plan (1) Status post total right knee replacement: PLAN: Status post right total knee arthroplasty 1. Will continue PT today. Weightbearing as tolerated 2. Patient was denied by insurance. Peer to peer today. 3. Patient will follow up for post op appointment in 2 weeks 4. DVT prophylaxis : Aspirin 81 mg twice daily x4 weeks 5. Pain control: patient instructed to take tylenol 500mg 2 tablets TID. and oxycodone 1-2 tablets every 4-6 hours only as needed for pain control. 6. ok to remove post op dressing. 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
--- NOTE | 2021-11-07 14:02 | CASEMGMT ---
[facility] called to obtain a reference number for patient for the peer to peer. ABBE spoke with Marina in TCU and the [facility] number she has is for [facility] and it is [phone]. ABBE called [facility] and gave the nurse the reference number. The PA will work on completing a peer to peer. Virginia WILLOUGHBY
[2021-11-07 15:00] VITALS: BP 127/98; PULSE 72; RESP 19; TEMP 36.7; O2SAT 100
--- NOTE | 2021-11-07 16:13 | CASEMGMT ---
Social Work This automobile and property underwriter received call from Marina in TCU that denial was overturned by peer to peer and pt can be discharged to TCU. Chelsie, MS3 ABBE aguiar. CHLOE Jensen
--- NOTE | 2021-11-07 16:18 | CASEMGMT ---
Addendum entered by Chelsie Calzada 11/07/21 16:32: SW found signed med list on pt chart. SW placed green sheet on chart. Pt still needs transfer order completed before discharge. Original Note: Social Work SW called [facility] to inform pt denial has been overturned and pt is now approved to go to TCU. SW inquired if pt would discharge tonight and informed if so that a discharge order/transfer to extend care report would need completed. SW was informed by psychiatric secretary at [facility] that this needs to be discussed between Dr. Fox and Maricarmen SUGGS. [place] at [facility] stated neither libertarian was available at this time. [place] stated would inform them of the need for discharge/transfer documents and see what they say. Sw notified pt of acceptance and approval by insurance. Explained pt will be transferred to TCU when discharge orders are complete. Pt voiced understanding. Pt declined for this worker to call step daughter Xiao. Pt stated would call her now to share good news. Chelsie Calzada, CHLOE
[2021-11-07 21:14] VITALS: BP 109/41; PULSE 80; RESP 18; TEMP 37.7; O2SAT 93
[2021-11-07 21:15] VITALS: BP 109/41; PULSE 80; RESP 18; TEMP 37.7; O2SAT 93
[2021-11-08 03:24] VITALS: BP 123/49; PULSE 74; RESP 18; TEMP 36.8; O2SAT 95
[2021-11-08 03:25] VITALS: BP 123/49; PULSE 74; RESP 18; TEMP 36.8; O2SAT 95
[2021-11-08] MEDS: Acetaminophen 500 MG Tablet 1000 MG PO ×2 (05:27→13:34)
[2021-11-08] MEDS: Gabapentin 300 MG Capsule PO ×2 (09:24→13:34)
[2021-11-08] MEDS: oxyCODONE 5 MG Tablet PO (09:24)
[2021-11-08] MEDS: Aspirin 81 MG TAB.CHEW PO (09:24)
[2021-11-08] MEDS: Senna/Docusate Sodium 1 Tablet 2 TABLET PO (09:24)
[2021-11-08 09:30] VITALS: BP 106/54; PULSE 77; RESP 18; TEMP 36.5; O2SAT 95
[2021-11-08 10:07] VITALS: BP 106/54; PULSE 77; RESP 18; TEMP 36.5; O2SAT 95
[2021-11-08 10:37] VITALS: O2SAT 96
--- NOTE | 2021-11-08 10:51 | PCM.PN.ORT ---
Subjective Subjective Patient is s/p right sided total knee arthroplasty with Dr. Fox. Patient resting comfortably in bed. Rates pain 5/ 10 at rest. With movement 5/10. States taking oxycodone and Tylenol as needed and ice help to relieve pain. Patient has been up with therapy. Walking with the assit of a walker. Afebrile, no chest pain, shortness of breath, negative calf pain/ erythema, and no other signs of DVT. Objective Data Objective Data Vital Signs: Vital Signs Temp Pulse Resp BP Pulse Ox O2 Del Method O2 Flow Rate 97.7 F L 77 18 106/54 L 95 Room Air 4 11/08/21 10:40 11/08/21 10:40 11/08/21 10:40 11/08/21 10:40 11/08/21 10:40 11/08/21 10:40 11/05/21 14:45 Oxygen Flow Rate (L/min) 4 Oxygen Delivery Method Room Air Weight: 112 kg Body Mass Index (BMI) 31.6 Intake & Output: Intake and Output for Last 24 Hours 11/06/21 11/07/21 11/08/21 23:59 23:59 23:59 Intake Total 50 / 250 475 / 475 Output Total 600 / 600 200 / 200 Balance -550 / -350 475 / 475 -200 / -200 Lab / Micro Data Result Diagrams: 11/06/21 05:08 11/06/21 05:08 Micro: Microbiology 10/23/21 11:21 Swab (Method) Nasal Screen MRSA/MSSA - Final Physical Exam Narrative Patient resting comfortably in bed No signs of acute distress Satting well on room air Limb is warm to touch, Sensation intact throughout entire lower extremity, including saphenous, sural, superficial and deep peroneal, and tibial distribution. DP/PT pulses bounding. Dorsi and plantar flexion 5/5 Dressing some drainage that is dry serosanguineous. Stable from yesterday. Calf nontender to palpation, no erythema, no edema. Negative Homans Assessment & Plan Assessment/Plan (1) Status post total right knee replacement: PLAN: Status post right total knee arthroplasty 1. Will continue PT today. Weightbearing as tolerated 2. Patient's peer to peer was excepted. Discharge today to SNF 3. Patient will follow up for post op appointment in 2 weeks 4. DVT prophylaxis : Aspirin 81 mg twice daily x4 weeks 5. Pain control: patient instructed to take tylenol 500mg 2 tablets TID. and oxycodone 1-2 tablets every 4-6 hours only as needed for pain control. 6. ok to remove post op dressing. 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
--- NOTE | 2021-11-08 10:52 | PCM.DC.SUM ---
Providers Date of Admission: 11/05/21 Primary Care Physician: Diana Ayala SOLAR ENERGY CONSULTANT AND DESIGNER-C Reason For Visit: RT TOTAL KNEE W SHIN Diagnosis Discharge Diagnosis (1) Status post total right knee replacement: Status: Acute Code(s): Z96.651 - Presence of right artificial knee joint Plan: Status post right total knee arthroplasty 1. Will continue PT today. Weightbearing as tolerated 2. Patient's peer to peer was excepted. Discharge today to SNF 3. Patient will follow up for post op appointment in 2 weeks 4. DVT prophylaxis : Aspirin 81 mg twice daily x4 weeks 5. Pain control: patient instructed to take tylenol 500mg 2 tablets TID. and oxycodone 1-2 tablets every 4-6 hours only as needed for pain control. 6. ok to remove post op dressing. 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: Status: Acute Code(s): Z96.651 - Presence of right artificial knee joint Medications at Discharge Home Medications ascorbic acid (vitamin C) 500 mg tablet (Vitamin C) 500 mg PO DAILY@0800 SUPPLEMENT 06/17/14 cyanocobalamin (vitamin B-12) 2,000 mcg tablet 1,000 mcg PO TINOCO SUPPLEMENT 06/17/14 finasteride 5 mg tablet 5 mg PO 1200 URINE 06/17/14 gabapentin 300 mg capsule 300 mg PO TID PAIN 06/17/14 saw palmetto 160 mg capsule 450 mg PO QODAY SUPPLEMENT 06/17/14 Cholecalciferol (Vitamin D3) [Vitamin D3] 50,000 unit PO TINOCO SUPPLEMENT 02/02/15 rosuvastatin 20 mg tablet 20 mg PO QHS 03/28/21 acetaminophen 500 mg tablet 1,000 mg PO Q8 #90 tabs 11/06/21 aspirin 81 mg chewable tablet 81 mg PO BID #60 tabs 11/06/21 oxycodone 5 mg tablet 5 - 10 mg PO Q4H PRN PRN Pain Score 6-10 7 days #60 tabs 11/07/21 Hospital Course Operations total knee replacement Physical Exam Narrative Patient resting comfortably in bed No signs of acute distress Satting well on room air Limb is warm to touch, Sensation intact throughout entire lower extremity, including saphenous, sural, superficial and deep peroneal, and tibial distribution. DP/PT pulses bounding. Dorsi and plantar flexion 5/5 Dressing some drainage that is dry serosanguineous. Stable from yesterday. Calf nontender to palpation, no erythema, no edema. Negative Homans Const alert and oriented x3 Weight / BMI Weight Weight: 112 kg Body Mass Index (BMI) 31.6 ABG / Lab / Microbiology Data Result Diagrams: 11/06/21 05:08 11/06/21 05:08 Microbiology: Microbiology 10/23/21 11:21 Swab (Method) Nasal Screen MRSA/MSSA - Final D/C Instructions Discharge Diet: No restrictions Discharge Activity: Return to Normal Activity May shower in (days): 3 Weight Bearing Status: Weight bearing as tolerated Keep extremity elevated above heart level: Operative Extremity Call your doctor if your incision/area has: Continuous Slow Oozing, Sudden Increased Bleeding, Increased Pain/ Swelling, Increased Redness, Foul Smelling Discharge and Swelling at the incision site Call your doctor if you observe: Fever of 101 or Higher Remove Dressing in: 5 days Cleanse incision/area with: Keep Dressing Clean & Dry Meaningful Use Info Meaningful Use Diagnoses (Choose all that apply): None applicable Discharge Plan Admission Admit Date/Time: 11/05/21 16:34 Attending Provider: Arvin Fox Primary Care Provider: Diana Ayala Discharge Orders/Prescriptions Prescriptions: New acetaminophen 500 mg Tablet 1,000 mg PO Q8 Qty: 90 0RF aspirin 81 mg Tablet,Chewable 81 mg PO BID Qty: 60 0RF oxycodone 5 mg Tablet 5 - 10 mg PO Q4H PRN PRN (Reason: Pain Score 6-10) 7 Days Qty: 60 0RF Continued ascorbic acid (vitamin C) [Vitamin C] 500 MG tablet 500 mg PO DAILY@0800 Label Comments: Vitamin supplement saw palmetto 160 MG capsule 450 mg PO QODAY Label Comments: Supplement gabapentin 300 MG capsule 300 mg PO TID Label Comments: Neuropathy (nerve pain) finasteride 5 MG tablet 5 mg PO 1200 Label Comments: Enlarged prostate (BPH) cyanocobalamin (vitamin B-12) 2,000 MCG tablet 1,000 mcg PO TINOCO Label Comments: Vitamin supplement Cholecalciferol (Vitamin D3) [Vitamin D3] 5,000 UNIT capsule 50,000 unit PO TINOCO Label Comments: SUPPLEMENT rosuvastatin 20 mg Tablet 20 mg PO QHS Discontinued acetaminophen 500 MG tablet 1,000 mg PO QHS aspirin [Aspir-81] 81 mg Tablet,Delayed Release (Dr/Ec) 81 mg PO QHS Other Ambulatory Orders: Magnesium (Routine) Timeframe: 20211026 Facility: [facility] - Location: Laboratory Ordered By: Dr. Elbert Lakhani MRSA/SAID SCREEN (PRE SURG) (Routine) Timeframe: 20211026 Facility: [facility] - Location: Laboratory Ordered By: Dr. Arvin Fox Referrals / Follow Up: Diana Ayala, SOLAR ENERGY CONSULTANT AND DESIGNER-C [Primary Care Provider] - Disposition Disposition (needs filled in before D/C Order can be placed): [facility]
--- NOTE | 2021-11-08 11:20 | PHA.DC.MR ---
Pharmacy Service has performed discharge medication reconciliation for this patient upon transfer to TCU Home Medications ascorbic acid (vitamin C) 500 mg tablet (Vitamin C) 500 mg PO DAILY@0800 SUPPLEMENT 06/17/14 cyanocobalamin (vitamin B-12) 2,000 mcg tablet 1,000 mcg PO TINOCO SUPPLEMENT 06/17/14 finasteride 5 mg tablet 5 mg PO 1200 URINE 06/17/14 gabapentin 300 mg capsule 300 mg PO TID PAIN 06/17/14 saw palmetto 160 mg capsule 450 mg PO QODAY SUPPLEMENT 06/17/14 Cholecalciferol (Vitamin D3) [Vitamin D3] 50,000 unit PO TINOCO SUPPLEMENT 02/02/15 rosuvastatin 20 mg tablet 20 mg PO QHS 03/28/21 acetaminophen 500 mg tablet 1,000 mg PO Q8 #90 tabs 11/06/21 aspirin 81 mg chewable tablet 81 mg PO BID #60 tabs 11/06/21 oxycodone 5 mg tablet 5 - 10 mg PO Q4H PRN PRN Pain Score 6-10 7 days #60 tabs 11/07/21 The patient's discharge medication list was reviewed for discrepancies and discrepancies were resolved.
--- NOTE | 2021-11-08 12:17 | CASEMGMT ---
Social Work SW to discuss transfer to TCU with pt. SW inquired about calling family and pt declined. Stated has cell phone and will call on own. SW informed pt after negaitve covid result returns he will be transferred to TCU. Pt voiced understanding. ABBE notified Marina at TCU pt will discharge today. SW faxed orders to TCU. Disposition: TCU, skilled level of care. CHLOE Edwards
[2021-11-08 15:09] VITALS: BP 111/53; PULSE 79; RESP 18; TEMP 36.7; O2SAT 95
== END 2021-11-08 15:20 | disposition skilled nursing facility (03) ==
LOC: SDC 18:17 → MS3 18:17
PROVIDERS: Anesthesiology; Admitting Provider Orthopaedic Surgery; PCP Nurse Practitioner Family; Referring Provider Orthopaedic Surgery; Visit Provider Orthopaedic Surgery
PROC: 0SRC0JZ Replacement of Right Knee Joint with Synthetic Substitute, Open Approach (ICD-10-PCS; CPT 27447; principal; 2021-11-05 10:00)
DX: M17.11 Unilateral primary osteoarthritis, right knee (principal); C85.10 Unspecified B-cell lymphoma, unspecified site; C61 Malignant neoplasm of prostate; Z79.899 Other long term (current) drug therapy; Z79.82 Long term (current) use of aspirin; R06.02 Shortness of breath; Z85.6 Personal history of leukemia; I49.1 Atrial premature depolarization; E78.00 Pure hypercholesterolemia, unspecified; E66.9 Obesity, unspecified; Z68.33 Body mass index [BMI] 33.0-33.9, adult
CPT/HCPCS: 27447; S2900; 01402; 64447; 36415; 73560; 80048; 82040; 82962; 83036; 83735; 85025; 85027; 87081; 87426; 88305; 88311; 96365; 96366; 97110; 97116; 97162; 97166; 97530; 97535; 99218; C1776; J7120; A4216; G0378; J2405; J3475

== ENCOUNTER 2021-11-08 15:33 | Inpatient (IN) | payer MEDICARE, SELFPAY ==
[2021-11-08 16:16] VITALS: BP 126/64; PULSE 87; RESP 17; TEMP 36.4; O2SAT 95; BMI 33.2
--- NOTE | 2021-11-08 17:30 | RAD_ITS ---
STUDY: XR Knee 3 Views 11/08/2021 6:12 PM REASON FOR EXAM: Male, 81 years old. Pain, swelling. TECHNIQUE: XR Knee 3 Views RIGHT COMPARISON: 22 FINDINGS: There is no fracture or dislocation. There is anatomic alignment. Total knee arthroplasty. Soft tissue edema. Skin majo are seen along the anterior midline aspect of the knee. There is an air-fluid level seen in the suprapatellar region. Joint space is preserved. Subcutaneous air is resolved. RAD/Knee 3 Views IMPRESSION: There is increase in the amount of soft tissue edema. Electronically Signed: Vincent Streeter MD at 18:13 EDT ,
--- NOTE | 2021-11-08 19:33 | HP.PCM_ITS ---
HPI - General General Date of Admission: 11/08/21 Date of Service: 11/08/21 Chief Complaint: Here for rehab. HPI Narrative PRABHU BUCIO, is a 81 Male who presents with followin11/05/2021 Dr. Fox performed right total knee replacement. 11/06/2021 Pain 5/10 at rest. Pain 7/10 with movement. PT, weight bearing as tolerated. Tylenol, Oxycodone for pain. Aspirin 81mg twice daily x 4 weeks for DVT prophylaxis. 11/07/2021 Peer to Peer for SNF rehab. 11/08/2021 Admit to TCU with debility, here for rehabilitation, strengthening, prior to discharge home. Resident c/o pain 8/10 with standing. He has swelling right knee, right leg. He has warmth of right knee. X-ray right knee, Doppler ultrasound right lower extremity, start ATB's for right knee cellulitis. 11/08/2021 18:20 resident eating pineapple, per nursing report, he had dysphagia, and was coughing clear sputum/saliva for 10 minutes, resident feels the pineapple is passing, monitor for now. [facility]LY [facility] Medical History Alcohol use Arthritis B-cell lymphoma Back pain Basal cell carcinoma Fall Former smoker Glaucoma High cholesterol History of edema History of leukemia History of pain when walking Intermittent lightheadedness Leukopenia Loss of hearing Neutropenia Non-Hodgkin lymphoma Prostate disease Shortness of breath on exertion Uses wheelchair Walker as ambulation aid Wears glasses Home Medications ascorbic acid (vitamin C) 500 mg tablet (Vitamin C) 500 mg PO DAILY@0800 SUPPLEMENT 06/17/14 [History Last Taken 03/07/16] cyanocobalamin (vitamin B-12) 2,000 mcg tablet 1,000 mcg PO TINOCO SUPPLEMENT 06/17/14 [History Last Taken 03/06/16] finasteride 5 mg tablet 5 mg PO 1200 URINE 06/17/14 [History Last Taken 03/06/16] gabapentin 300 mg capsule 300 mg PO TID PAIN 06/17/14 [History Last Taken 03/07/16 06:00] saw palmetto 160 mg capsule 450 mg PO QODAY SUPPLEMENT 06/17/14 [History Last Taken 03/06/16] Cholecalciferol (Vitamin D3) [Vitamin D3] 50,000 unit PO TINOCO SUPPLEMENT 02/02/15 [History Last Taken Unknown] rosuvastatin 20 mg tablet 20 mg PO QHS Cholesterol 03/28/21 [History Last Taken Unknown] oxycodone 5 mg tablet 5 - 10 mg PO Q4H PRN PRN Pain Score 6-10 7 days #60 tabs 11/07/21 [Rx Last Taken Unknown] acetaminophen 500 mg tablet 1,000 mg PO Q8 Pain 11/08/21 [History Last Taken Unknown] aspirin 81 mg chewable tablet 81 mg PO BID Heart 11/08/21 [History Last Taken Unknown] Allergy/AdvReac Type Severity Reaction Status Date / Time No Known Allergies Allergy Verified 11/05/21 08:46 Family History Father Kidney disease Heart disease Surgical History History of back surgery History of hip replacement History of local excision of skin lesion History of tonsillectomy History of total left knee replacement (TKR) History of transurethral resection of prostate Social History (Updated 11/08/21 @ 19:[address] Darwin Montenegro MD) household members: none Smoking Status: Former smoker alcohol intake: never substance use type: does not use ROS Constitutional Constitutional: Denies chills, fever(s) or weight gain ENT HEENT: Denies headache(s), nasal congestion or nasal discharge Cardiovascular Cardiovascular: Denies chest pain or palpitations Respiratory/Chest Respiratory/Chest: Denies cough, excessive phlegm production or shortness of breath with exertion Gastrointestinal Gastrointestinal: Denies abdominal pain, nausea or vomiting Genitourinary Genitourinary: Denies dysuria Musculoskeletal Musculoskeletal: Reports joint pain, joint swelling and other Details: Right knee pain. Integumentary Integumentary: Denies rash or wounds Neurologic Neurologic: Denies focal weakness, numbness or tingling Psychiatric Psychiatric: Denies anxiety, auditory hallucinations, depression, homicidal ideation or suicidal ideation Vital Signs Vital Signs Vital Signs: 11/08/21 16:16 Temperature 97.5 F L Temperature Source Temporal Pulse Rate 87 Respiratory Rate 17 Blood Pressure 126/64 H Blood Pressure Mean 84 Blood Pressure Source Monitor Blood Pressure Position Sitting Blood Pressure Location Right Arm Pulse Ox 95 Oxygen Delivery Method Room Air Weight Weight: 111.13 kg Physical Exam Const alert General Appearance: cooperative HEENT normocephalic Eyes PERRL and EOMs intact bilaterally Neck supple, no JVD and no carotid bruits Resp normal respiratory effort, normal air movement and clear to auscultation bilaterally Cardio regular rate and regular rhythm GI normal to inspection, nondistended, normoactive bowel sounds, non-tender and non-distended Extremity normal capillary refill Extremity Narrative: Warmth right knee. General Extremity: edema right Skin no rashes or lesions noted General Skin Exam: no breakdown Psych affect normal Appearance: appropriate Results Radiology Impression Knee X-Ray 11/08/21 17:30 IMPRESSION: There is increase in the amount of soft tissue edema. Electronically Signed: Vincent Streeter MD at 18:13 EDT Reading Location ID and State: [facility] / [place] , Service support , Assessment & Plan Assessment/Plan (1) Debility: (2) Status post total right knee replacement: (3) Edema: (4) Cellulitis of right knee: (5) Dysphagia: (6) Vitamin D deficiency: (7) Benign prostate hyperplasia: (8) Neuropathic pain: (9) Hyperlipidemia: PLAN: Plan 81 year old male with below past medical history underwent right total knee replacement 11/05/[address] Fox, admitted to TCU with debility, here for rehabilitation, strengthening, prior to discharge home alone. * Debility - PT/OT. * Dysphagia - ST. * Pain - Tylenol 1000mg q8h, Oxycodone 5-10mg q4h prn pain (5-10). * Bowel - Miralax 17gm daily, senna/colace 2 tablets bid, Dulcolax 10mg daily prn. * Adult immunization - Aspirin 81mg bid thru 12/05/2021. * Hyperlipidemia - Atorvastatin 40mg qhs. * Right knee pain - X-ray right knee. * Edema - Doppler ultrasound right lower extremity to rule out DVT. * Cellulitis of right knee - Keflex 500mg bid x 7 days, Doxycycline 100mg bid x 7 days. * B12 deficiency - B12 500mg qweek. * Vitamin D deficiency - Vitamin D 1.25mg qweek. * BPH - Finasteride 5mg daily. * Neuropathic pain - gabapentin 300mg tid.
[2021-11-08 20:05] VITALS: PULSE 80; O2SAT 98
[2021-11-08] MEDS: Cephalexin 500 MG Capsule PO (21:03)
[2021-11-08] MEDS: Doxycycline 100 MG CAPSULE PO (21:03)
[2021-11-08] MEDS: Aspirin 81 MG TAB.CHEW PO (21:03)
[2021-11-08] MEDS: Atorvastatin Calcium 40 MG Tablet PO (21:04)
[2021-11-08] MEDS: Acetaminophen 500 MG Tablet 1000 MG PO (21:04)
[2021-11-08] MEDS: Gabapentin 300 MG Capsule PO (21:07)
[2021-11-08] MEDS: Senna/Docusate Sodium 1 Tablet 2 TABLET PO (21:07)
[2021-11-09 05:00] VITALS: BP 115/59; PULSE 82; RESP 14; TEMP 36.6; O2SAT 93
[2021-11-09 05:39] LABS: Absolute Lymphocyte Count 0.88 X10^3/uL (0.83-4.51); Basophil# 0.02 X10^3/uL; Basophil% 0.4 % (0-1); Eosinophil# 0.15 X10^3/uL; Eosinophils% 2.6 % (0-5); Hematocrit 36.8 % (40-54); Hemoglobin 12.5 g/dL (13.0-16.5); Lymphocyte # 0.88 X10^3/ul (0.83-4.51); Lymphocyte % 15.4 % (19-41); Mean Corpuscular Hgb 31.5 pg (27.0-32.0); Mean Corpuscular Volume 92.7 fL (80-94); Mean Platelet Vol. 10.8 fl (6.2-12.0); Monocyte# 0.67 X10^3/uL; Monocyte% 11.8 % (0-10); NRBC Flagged by Analyzer 0 % (0-5); Neutrophil # 3.95 X10^3/uL (2.7-7.7); Neutrophil % 69.3 % (47-70); Platelet Count 120 K/mm3 (150-450); RBC Distribution Width CV 13.3 % (11.6-14.6); RBC Distribution Width SD 45.3 fl (35.1-43.9); Red Blood Count 3.97 M/mm3 (4.6-6.2); White Blood Count 5.7 K/mm3 (4.4-11.0)
[2021-11-09] MEDS: Gabapentin 300 MG Capsule PO ×3 (05:47→22:21)
[2021-11-09] MEDS: Senna/Docusate Sodium 1 Tablet 2 TABLET PO ×2 (05:47→17:05)
[2021-11-09] MEDS: Doxycycline 100 MG CAPSULE PO ×2 (05:47→17:05)
[2021-11-09] MEDS: Cephalexin 500 MG Capsule PO ×2 (05:47→17:05)
[2021-11-09] MEDS: Acetaminophen 500 MG Tablet 1000 MG PO ×3 (05:48→22:23)
[2021-11-09] MEDS: Polyethylene Glycol 3350 17 GM PACKET PO (05:48)
[2021-11-09 06:07] LABS: Anion Gap 4 (5-15); BUN 24 mg/dL (7-18); BUN/Creat Ratio 25.6 RATIO (10-20); Calcium,Total 8.6 mg/dL (8.5-10.1); Chloride 110 mmol/L (98-107); Creatinine, Serum 0.94 mg/dL (0.70-1.30); EST Glomerular Filtration Rate 82 mL/min (>60); Est Glom Filt Rate - Afr Amer 99 mL/min (>60); Glucose 128 mg/dL (74-106); Potassium 3.5 mmol/L (3.5-5.1); Sodium Level 141 mmol/L (136-145)
[2021-11-09] MEDS: Aspirin 81 MG TAB.CHEW PO ×2 (08:27→17:05)
[2021-11-09] MEDS: oxyCODONE 5 MG Tablet PO ×2 (10:55→22:21)
[2021-11-09] MEDS: Tuberculin,Purif.prot.deriv. 50 TU/ML Vial 0.1 ML ID (10:55)
[2021-11-09] MEDS: Finasteride 5 MG Tablet PO (11:36)
[2021-11-09 15:25] VITALS: BP 114/62; PULSE 76; RESP 21; TEMP 36.1; O2SAT 95
--- NOTE | 2021-11-09 16:15 | CASEMGMT ---
Social Work Met with patient to complete initial assessment. Introduced self and role. Verified/updated contacts. Discussed code status and MOLST form. Pt confirmed full code. MOLST completed, placed in Dr folder. Pt unsure of his HCPOA one of the three girls and SW requested to have children bring in copy. [facility]12 and continued stay is not guaranteed. Pts goal is to return home alone. SW to continue to follow for DC planning. Breana Thacker, MAPPING EDITOR SAMPLE SELECTOR
[2021-11-09 21:00] VITALS: PULSE 69; RESP 16; O2SAT 92
[2021-11-09] MEDS: Atorvastatin Calcium 40 MG Tablet PO (22:23)
[2021-11-10] MEDS: Gabapentin 300 MG Capsule PO ×3 (06:22→21:06)
[2021-11-10] MEDS: Polyethylene Glycol 3350 17 GM PACKET PO (06:22)
[2021-11-10] MEDS: Doxycycline 100 MG CAPSULE PO ×2 (06:23→16:18)
[2021-11-10] MEDS: Acetaminophen 500 MG Tablet 1000 MG PO ×3 (06:23→21:05)
[2021-11-10] MEDS: Cephalexin 500 MG Capsule PO ×2 (06:23→16:18)
[2021-11-10] MEDS: Senna/Docusate Sodium 1 Tablet 2 TABLET PO ×2 (06:23→16:18)
[2021-11-10] MEDS: Bisacodyl 5 MG Tablet 10 MG PO (07:20)
[2021-11-10] MEDS: Aspirin 81 MG TAB.CHEW PO ×2 (08:32→16:17)
[2021-11-10] MEDS: oxyCODONE 5 MG Tablet PO (11:18)
[2021-11-10] MEDS: Finasteride 5 MG Tablet PO (11:19)
[2021-11-10 11:30] VITALS: PULSE 83; RESP 16; O2SAT 93
[2021-11-10 14:38] VITALS: BP 103/58; PULSE 83; RESP 18; TEMP 36.3; O2SAT 96
[2021-11-10] MEDS: Atorvastatin Calcium 40 MG Tablet PO (21:06)
--- NOTE | 2021-11-10 22:20 | NURSING ---
This nurse walked by pt's room noting he was completing an unassisted transfer in the dark using his walker. Assisted pt to bed from recliner. Gait unsteady w/ wheeled walker. Pt able to get BLE into bed without assistance. Positioned for comfort. Instructed to call for staff assist w/ all transfers until cleared per therapy. Call light w/ in reach. Will continue to monitor.
[2021-11-11] MEDS: Ergocalciferol 1.25 MG (50, 000 UNIT) Capsule PO (05:56)
[2021-11-11] MEDS: Acetaminophen 500 MG Tablet 1000 MG PO ×3 (05:56→21:10)
[2021-11-11] MEDS: Doxycycline 100 MG CAPSULE PO ×2 (05:56→19:14)
[2021-11-11] MEDS: Cephalexin 500 MG Capsule PO ×2 (05:56→18:24)
[2021-11-11] MEDS: Senna/Docusate Sodium 1 Tablet 2 TABLET PO ×2 (05:56→18:25)
[2021-11-11] MEDS: Polyethylene Glycol 3350 17 GM PACKET PO (05:57)
[2021-11-11] MEDS: Cyanocobalamin 500 MCG Tablet PO (05:57)
[2021-11-11] MEDS: Gabapentin 300 MG Capsule PO ×3 (06:00→21:10)
--- NOTE | 2021-11-11 06:12 | NURSING ---
Pt acknowledges completing another unassisted transfer to the bathroom in the middle of the night. Instructed pt on the importance of calling for staff assistance to prevent falls and/or any additional complications. He verbalizes understanding.
[2021-11-11] MEDS: Aspirin 81 MG TAB.CHEW PO ×2 (08:18→18:24)
[2021-11-11] MEDS: Finasteride 5 MG Tablet PO (12:56)
[2021-11-11 14:21] VITALS: BP 119/64; PULSE 75; RESP 18; TEMP 36; O2SAT 93
[2021-11-11] MEDS: Atorvastatin Calcium 40 MG Tablet PO (21:10)
[2021-11-12] MEDS: oxyCODONE 5 MG Tablet PO ×3 (02:17→21:48)
[2021-11-12] MEDS: Polyethylene Glycol 3350 17 GM PACKET PO (05:49)
[2021-11-12] MEDS: Acetaminophen 500 MG Tablet 1000 MG PO ×3 (05:50→21:48)
[2021-11-12] MEDS: Senna/Docusate Sodium 1 Tablet 2 TABLET PO ×2 (05:50→16:42)
[2021-11-12] MEDS: Cephalexin 500 MG Capsule PO ×2 (05:50→16:42)
[2021-11-12] MEDS: Gabapentin 300 MG Capsule PO ×3 (05:50→21:48)
--- NOTE | 2021-11-12 05:57 | NURSING ---
Communication sent to pharmacy to send am dose of Doxycycline.
[2021-11-12] MEDS: Doxycycline 100 MG CAPSULE PO ×2 (06:49→16:41)
[2021-11-12] MEDS: Aspirin 81 MG TAB.CHEW PO ×2 (08:17→16:41)
[2021-11-12 08:46] VITALS: PULSE 83; RESP 16; O2SAT 93
--- NOTE | 2021-11-12 10:16 | PHA.CONS_ITS ---
TCU RX Drug Regimen Review Subjective: 81 YOM admitted to TCU S/P total right knee replacement on 11/05/21. Admitted to TCU on 11/08/21 for strengthening and rehabilitation prior to discharge home where he lives alone. Objective: Allergies No Known Allergies Allergy (Verified 11/05/21 08:46) Current Medications Generic Name Dose Route Start Last Admin Trade Name Freq PRN Reason Stop Dose Admin Acetaminophen 1,000 mg 11/08/21 22:00 11/12/21 05:50 Acetaminophen 500 Mg Tablet PO 1,000 mg Q8 ROME Administration Aspirin 81 mg 11/08/21 18:00 11/12/21 08:17 Aspirin 81 Mg Tab.Chew PO 12/05/21 23:55 81 mg BIDCM ROME Administration Atorvastatin Calcium 40 mg 11/08/21 22:00 11/11/21 21:10 Atorvastatin Calcium 40 Mg Tablet PO 40 mg QHS ROME Administration Bisacodyl 10 mg 11/08/21 19:48 11/10/21 07:20 Bisacodyl 5 Mg Tablet PO 10 mg DAILY PRN Administration Constipation Cephalexin 500 mg 11/08/21 18:00 11/12/21 05:50 Cephalexin 500 Mg Capsule PO 11/15/21 18:01 500 mg Q12 ROME Administration Cyanocobalamin 500 mcg 11/11/21 06:00 11/11/21 05:57 Cyanocobalamin 500 Mcg Tablet PO 500 mcg TINOCO ROME Administration Doxycycline Monohydrate 100 mg 11/08/21 19:00 11/12/21 06:49 Doxycycline 100 Mg Capsule PO 11/15/21 19:01 100 mg BID ROME Administration Ergocalciferol 1.25 mg 11/11/21 06:00 11/11/21 05:56 Ergocalciferol 1.25 Mg (50, 000 Unit) Capsule PO 1.25 mg TINOCO ROME Administration Finasteride 5 mg 11/09/21 12:00 11/11/21 12:56 Finasteride 5 Mg Tablet PO 5 mg 1200 ROME Administration Gabapentin 300 mg 11/08/21 22:00 11/12/21 05:50 Gabapentin 300 Mg Capsule PO 300 mg TID ROME Administration Oxycodone HCl 5 - 10 mg 11/08/21 16:33 11/12/21 02:17 Oxycodone 5 Mg Tablet PO 5 mg Q4H PRN PRN Administration Pain Score 6-10 Polyethylene Glycol 17 gm 11/09/21 06:00 11/12/21 05:49 Polyethylene Glycol 3350 17 Gm Packet PO 17 gm DAILY ROME Administration Senna/Docusate Sodium 2 tablet 11/08/21 20:00 11/12/21 05:50 Senna/Docusate Sodium 1 Tablet PO 2 tablet BID ROME Administration Tuberculin PPD 0.1 ml 11/16/21 10:00 Tuberculin,Purif.Prot.Deriv. 50 Tu/Ml Vial ID 11/16/21 10:01 X1 ONE Problem List (Last Reviewed 11/08/21 @ 19:[address] Darwin Montenegro MD) Hyperlipidemia (Acute) Neuropathic pain (Acute) Benign prostate hyperplasia (Acute) Vitamin D deficiency (Acute) Dysphagia (Acute) Cellulitis of right knee (Acute) Edema (Acute) Debility (Acute) Status post total right knee replacement (Acute) Vital Signs Temp Pulse Resp BP Pulse Ox O2 Del Method 96.8 F L 83 16 119/64 93 Room Air 11/11/21 14:21 11/12/21 08:46 11/12/21 08:46 11/11/21 14:21 11/12/21 08:46 11/12/21 08:46 Oxygen Delivery Method Room Air Weight: 111.13 kg Body Mass Index (BMI) 33.2 Sodium 141 mmol/L (136-145) 11/09/21 05:22 Potassium 3.5 mmol/L (3.5-5.1) 11/09/21 05:22 Chloride 110 mmol/L (98-107) H 11/09/21 05:22 Carbon Dioxide 27.0 mmol/L (21.0-32.0) 11/09/21 05:22 Anion Gap 4 (5-15) L 11/09/21 05:22 BUN 24 mg/dL (7-18) H 11/09/21 05:22 Creatinine 0.94 mg/dL (0.70-1.30) 11/09/21 05:22 Est GFR (MDRD) Af Amer 99 mL/min (>60) 11/09/21 05:22 Est GFR (MDRD) Non-Af 82 mL/min (>60) 11/09/21 05:22 BUN/Creatinine Ratio 25.6 RATIO (10-20) H 11/09/21 05:22 Glucose 128 mg/dL (74-106) H 11/09/21 05:22 Assessment/Plan: 1. Pain: Tylenol 1000mg PO Q8h, Oxycodone 5-10mg PO Q4h PRN Pain 6-10. Please continue to monitor for S/S increased/decreased pain, PRN medication usage, o versedation with narcotic use. - To date, the patient had utilized 4 doses of oxycodone since 11/08/21. Pre- pain assessment has pain rated in the knee 5-7/10, post-medication pain assessment has pain rated 0-1/10 in the knee. It appears that the patient's pain is adequately controlled at this time. 2. Right Knee Cellulitis: Keflex 500mg PO Q12h thru 11/15/21, Doxycycline 100mg PO BID thru 11/15/21. Please continue to monitor for S/S GI upset, diarrhea, resolution of infection. Of note, per EMR review, no cultures have been obtained to monitor for sensitivity results. 3. DVT Prophylaxis Post-op. Aspirin 81mg PO BID thru 12/05/21. Please continue to monitor for S/S bleeding/bruising, H/H (last labs stable), S/S blood clot given recent surgery. 4. Neuropathic pain: Gabapentin 300mg PO TID. Please continue to monitor for falls, oversedation, renal function, medication effectiveness. This is a Beer's Criteria medication which can increase the risk of falls in the elderly. Please continue to monitor patient, especially given that the patient is utilizing narcotic medication to help with pain. It appears at this time that the patient is stable and not experiencing falls. If patient does start falling, please evaluate risk vs. benefit of use, thank you. 5. BPH: Finasteride 5mg PO Daily. Please continue to monitor for improvement in urinary symptoms, urinary retention/frequency. 6. HLD: Lipitor 40mg PO QHS. Please continue to monitor lipid panel annually or sooner if clinically indicated. Per [facility] records, the last documented lipid panel was in 2017, please consider obtaining an updated lipid panel, thank you. 7. General Wellness: Vitamin B12 500mg PO weekly, Vitamin D 1.25mg PO Weekly. Please continue to monitor labs as clinically indicated, thank you. Bowel: Miralax 17g PO daily, Senna/Docusate 2 tab PO BID, Dulcolax 10mg PO Daily PRN. Please continue to monitor for increased/decreased constipation and/or diarrhea. The patient has not had a bowel movement since admission. Given narcotic use, consider giving PRN Dulcolax if patient does not have a bowel movement. Assessment/Plan for indications treated with psychotropic medications: The patient is currently not currently on an psychotropic medications at this time. Medical chart and medication regimen reviewed. The following medication irregularities or issues were identified: 1. HLD: Lipitor 40mg PO QHS. Please continue to monitor lipid panel annually or sooner if clinically indicated. Per [facility] records, the last documented lipid panel was in 2017, please consider obtaining an updated lipid panel, thank you. 2. Please continue to monitor patient closely for increased risk of falls given patient is on gabapentin scheduled, utilizing PRN narcotic medications for pain management, and recent joint replacement. Should the patient experience side effects, please consider evaluating risk vs. benefit of gabapentin and oxycodone use in this patient, thank you. Date of Note:: 11/12/21
[2021-11-12] MEDS: Finasteride 5 MG Tablet PO (11:36)
[2021-11-12 14:43] VITALS: BP 124/66; PULSE 82; RESP 16; TEMP 36.6; O2SAT 97
[2021-11-12] MEDS: Atorvastatin Calcium 40 MG Tablet PO (21:48)
[2021-11-13] MEDS: Senna/Docusate Sodium 1 Tablet 2 TABLET PO ×2 (06:14→16:27)
[2021-11-13] MEDS: Acetaminophen 500 MG Tablet 1000 MG PO ×3 (06:14→21:02)
[2021-11-13] MEDS: Gabapentin 300 MG Capsule PO ×3 (06:14→21:02)
[2021-11-13] MEDS: Cephalexin 500 MG Capsule PO ×2 (06:14→16:27)
[2021-11-13] MEDS: Polyethylene Glycol 3350 17 GM PACKET PO (06:14)
[2021-11-13] MEDS: Doxycycline 100 MG CAPSULE PO ×2 (06:14→16:27)
[2021-11-13] MEDS: Aspirin 81 MG TAB.CHEW PO ×2 (07:45→16:27)
[2021-11-13] MEDS: Finasteride 5 MG Tablet PO (11:19)
[2021-11-13 14:01] VITALS: BP 140/65; PULSE 81; RESP 14; TEMP 36.4; O2SAT 93
--- NOTE | 2021-11-13 15:27 | CASEMGMT ---
Social Work BIMS () and PHQ-9 (05/20) completed for MDS assessment. Breana Thacker MSW CALL CENTER RECEPTIONIST
[2021-11-13] MEDS: oxyCODONE 5 MG Tablet PO ×2 (16:29→21:02)
[2021-11-13] MEDS: Atorvastatin Calcium 40 MG Tablet PO (21:02)
[2021-11-14] MEDS: Polyethylene Glycol 3350 17 GM PACKET PO (05:41)
[2021-11-14] MEDS: Gabapentin 300 MG Capsule PO ×3 (05:41→21:25)
[2021-11-14] MEDS: Senna/Docusate Sodium 1 Tablet 2 TABLET PO ×2 (05:41→16:49)
[2021-11-14] MEDS: Doxycycline 100 MG CAPSULE PO ×2 (05:41→16:50)
[2021-11-14] MEDS: Acetaminophen 500 MG Tablet 1000 MG PO ×3 (05:41→21:25)
[2021-11-14] MEDS: Cephalexin 500 MG Capsule PO ×2 (05:41→16:50)
[2021-11-14] MEDS: Aspirin 81 MG TAB.CHEW PO ×2 (08:48→16:50)
--- NOTE | 2021-11-14 09:14 | CASEMGMT ---
Social Work ID[facility] Discussed patient's progress in PT/OT/SN. Educated to [facility] insurance with NRD 11/19, EDC 11/21, continued stay is not guaranteed. Pts goal is to return home alone at [facility]. Pt is receiving wound care and has f/u appt with Dr. Hewitt 11/16 for further direction. SW to continue to follow for DC plans. Breana Thacker, CRM CONSULTANT FLOOR SERVICE WORKER SPRING
[2021-11-14] MEDS: Finasteride 5 MG Tablet PO (11:43)
[2021-11-14 16:00] VITALS: BP 139/77; PULSE 88; RESP 18; TEMP 36.5; O2SAT 96
--- NOTE | 2021-11-14 16:18 | NURSING ---
Broacher Note; Activity Asst: Complete
[2021-11-14] MEDS: Atorvastatin Calcium 40 MG Tablet PO (21:25)
[2021-11-14] MEDS: oxyCODONE 5 MG Tablet PO (21:25)
[2021-11-15] MEDS: Polyethylene Glycol 3350 17 GM PACKET PO (06:00)
[2021-11-15] MEDS: Acetaminophen 500 MG Tablet 1000 MG PO ×3 (06:01→21:16)
[2021-11-15] MEDS: Cephalexin 500 MG Capsule PO ×2 (06:01→17:52)
[2021-11-15] MEDS: Doxycycline 100 MG CAPSULE PO ×2 (06:01→17:52)
[2021-11-15] MEDS: Gabapentin 300 MG Capsule PO ×3 (06:01→21:15)
[2021-11-15] MEDS: Senna/Docusate Sodium 1 Tablet 2 TABLET PO ×2 (06:01→17:52)
[2021-11-15] MEDS: Aspirin 81 MG TAB.CHEW PO ×2 (08:06→17:52)
--- NOTE | 2021-11-15 11:36 | NURSING ---
Health And Safety Trainer Note; MDS Complete
[2021-11-15] MEDS: Finasteride 5 MG Tablet PO (12:57)
[2021-11-15] MEDS: Bisacodyl 5 MG Tablet 10 MG PO (13:36)
[2021-11-15 16:00] VITALS: BP 115/64; PULSE 75; RESP 16; TEMP 35.6; O2SAT 95
[2021-11-15] MEDS: oxyCODONE 5 MG Tablet PO (21:16)
[2021-11-15] MEDS: Atorvastatin Calcium 40 MG Tablet PO (21:17)
[2021-11-16] MEDS: Senna/Docusate Sodium 1 Tablet 2 TABLET PO ×2 (05:51→16:36)
[2021-11-16] MEDS: Acetaminophen 500 MG Tablet 1000 MG PO ×3 (05:51→22:17)
[2021-11-16] MEDS: oxyCODONE 5 MG Tablet PO ×2 (05:51→12:41)
[2021-11-16] MEDS: Polyethylene Glycol 3350 17 GM PACKET PO (05:52)
[2021-11-16] MEDS: Gabapentin 300 MG Capsule PO ×3 (05:55→22:16)
[2021-11-16 06:00] LABS: Absolute Lymphocyte Count 2.15 X10^3/uL (0.83-4.51); Absolute Neutrophil Count 3.2 X10^3/uL (2.0-7.7); Basophil# 0.04 X10^3/uL; Basophil% 0.6 % (0-1); Eosinophil# 0.25 X10^3/uL; Eosinophils% 3.9 % (0-5); Hematocrit 40.6 % (40-54); Hemoglobin 13.1 g/dL (13.0-16.5); Lymphocyte # 2.15 X10^3/ul (0.83-4.51); Lymphocyte % 33.5 % (19-41); Mean Corp Hgb Conc 32.3 g/dL (32-36); Mean Corpuscular Hgb 30.2 pg (27.0-32.0); Mean Corpuscular Volume 93.5 fL (80-94); Mean Platelet Vol. 9.9 fl (6.2-12.0); Monocyte# 0.73 X10^3/uL; Monocyte% 11.4 % (0-10); NRBC Flagged by Analyzer 0 % (0-5); Neutrophil # 3.19 X10^3/uL (2.7-7.7); Neutrophil % 49.8 % (47-70); Platelet Count 235 K/mm3 (150-450); RBC Distribution Width CV 13.4 % (11.6-14.6); RBC Distribution Width SD 45.7 fl (35.1-43.9); Red Blood Count 4.34 M/mm3 (4.6-6.2); White Blood Count 6.4 K/mm3 (4.4-11.0)
[2021-11-16 06:34] LABS: Anion Gap 9 (5-15); BUN 20 mg/dL (7-18); BUN/Creat Ratio 19.8 RATIO (10-20); Calcium,Total 9.1 mg/dL (8.5-10.1); Chloride 105 mmol/L (98-107); Creatinine, Serum 1.01 mg/dL (0.70-1.30); EST Glomerular Filtration Rate 75 mL/min (>60); Est Glom Filt Rate - Afr Amer 91 mL/min (>60); Estimated Creatinine Clearance 61.89 ml/min; Glucose 125 mg/dL (74-106); Potassium 3.8 mmol/L (3.5-5.1); Sodium Level 140 mmol/L (136-145)
[2021-11-16] MEDS: Aspirin 81 MG TAB.CHEW PO ×2 (08:27→16:36)
[2021-11-16] MEDS: Doxycycline 100 MG CAPSULE PO ×2 (09:39→16:36)
[2021-11-16] MEDS: Cephalexin 500 MG Capsule PO ×2 (11:07→16:36)
[2021-11-16] MEDS: Finasteride 5 MG Tablet PO (11:07)
[2021-11-16] MEDS: Tuberculin,Purif.prot.deriv. 50 TU/ML Vial 0.1 ML ID (11:08)
[2021-11-16] MEDS: Magnesium Hydroxide 30 ML UDC PO (13:53)
[2021-11-16 13:57] VITALS: BP 106/67; PULSE 87; RESP 18; TEMP 36.2; O2SAT 96
[2021-11-16 22:00] VITALS: PULSE 79; RESP 16; O2SAT 94
[2021-11-16] MEDS: Atorvastatin Calcium 40 MG Tablet PO (22:16)
[2021-11-17] MEDS: Cephalexin 500 MG Capsule PO ×5 (00:10→22:59)
[2021-11-17] MEDS: Doxycycline 100 MG CAPSULE PO ×2 (04:49→17:24)
[2021-11-17] MEDS: Acetaminophen 500 MG Tablet 1000 MG PO ×3 (04:49→20:47)
[2021-11-17] MEDS: Senna/Docusate Sodium 1 Tablet 2 TABLET PO ×2 (04:49→17:24)
[2021-11-17] MEDS: Polyethylene Glycol 3350 17 GM PACKET PO (04:49)
[2021-11-17] MEDS: Gabapentin 300 MG Capsule PO ×3 (04:49→20:47)
--- NOTE | 2021-11-17 06:24 | NURSING ---
Addendum entered by Nithya Ponce 11/17/21 19:16: pt had XLG results Addendum entered by Nithya Ponce 11/17/21 07:53: dr duran updated, new order for golytely 1 liter. Original Note: Patient given soap suds enema per order at approx 4:45am. Patient unable to hold in fluid. No results as of 6:30 am.
[2021-11-17] MEDS: Aspirin 81 MG TAB.CHEW PO ×2 (08:55→17:24)
[2021-11-17] MEDS: Electrolyte Solution/Peg's 4000 ML 1000 ML PO (10:17)
[2021-11-17 10:35] VITALS: PULSE 80; RESP 18; O2SAT 94
--- NOTE | 2021-11-17 10:40 | NURSING ---
4 sutures removed from RT tran, incision slighly red but knee incision warm, red. skin marker used and marked red areas. applied BARBARA wrap d/t puffiness to pedal area.
[2021-11-17] MEDS: Finasteride 5 MG Tablet PO (11:51)
[2021-11-17] MEDS: oxyCODONE 5 MG Tablet PO (13:07)
[2021-11-17 16:00] VITALS: BP 142/72; PULSE 75; RESP 20; TEMP 35.9; O2SAT 98
[2021-11-17] MEDS: Atorvastatin Calcium 40 MG Tablet PO (20:47)
[2021-11-18] MEDS: Doxycycline 100 MG CAPSULE PO ×2 (05:38→16:40)
[2021-11-18] MEDS: Cephalexin 500 MG Capsule PO ×4 (05:38→23:43)
[2021-11-18] MEDS: Gabapentin 300 MG Capsule PO ×3 (05:39→21:52)
[2021-11-18] MEDS: Cyanocobalamin 500 MCG Tablet PO (05:39)
[2021-11-18] MEDS: Acetaminophen 500 MG Tablet 1000 MG PO ×3 (05:39→21:52)
[2021-11-18] MEDS: Ergocalciferol 1.25 MG (50, 000 UNIT) Capsule PO (05:39)
[2021-11-18] MEDS: Senna/Docusate Sodium 1 Tablet 2 TABLET PO (05:39)
[2021-11-18] MEDS: Aspirin 81 MG TAB.CHEW PO ×2 (08:19→16:40)
[2021-11-18] MEDS: oxyCODONE 5 MG Tablet PO (08:23)
[2021-11-18] MEDS: Finasteride 5 MG Tablet PO (11:49)
[2021-11-18 16:00] VITALS: BP 121/73; PULSE 69; RESP 21; TEMP 36.4; O2SAT 98
[2021-11-18] MEDS: Atorvastatin Calcium 40 MG Tablet PO (21:52)
[2021-11-19] MEDS: Doxycycline 100 MG CAPSULE PO ×2 (05:33→17:19)
[2021-11-19] MEDS: Gabapentin 300 MG Capsule PO ×3 (05:34→22:10)
[2021-11-19] MEDS: Cephalexin 500 MG Capsule PO ×4 (05:34→23:35)
[2021-11-19] MEDS: Acetaminophen 500 MG Tablet 1000 MG PO ×3 (05:34→22:10)
--- NOTE | 2021-11-19 10:11 | MDS.RN ---
Information for the mds was obtained from review of the clinical record, interview of resident, staff, and direct observation of resident's care.
[2021-11-19] MEDS: Aspirin 81 MG TAB.CHEW PO ×2 (11:00→17:19)
[2021-11-19] MEDS: Finasteride 5 MG Tablet PO (11:00)
[2021-11-19 14:20] VITALS: BP 122/62; PULSE 78; RESP 14; TEMP 36.6; O2SAT 95
--- NOTE | 2021-11-19 15:30 | CASEMGMT ---
Social Work Insurance issued LCD 11/21, DC 11/22. Spoke with pt whom is agreeable. IDT recommending HHC. Pt agreeable and declined list of skilled HHC providers with quality and resource data. Pt requesting [facility]. Referral made via phone and [facility] for PT/OT/SN. Family to transport. No DME needs. Plan: DC home 11/22, [facility] PT/OT/SN PEEWEE PrabhakarW
[2021-11-19] MEDS: Senna/Docusate Sodium 1 Tablet 2 TABLET PO (17:18)
--- NOTE | 2021-11-19 19:46 | PCM.DC.SUM ---
Providers Date of Admission: 11/08/21 Primary Care Physician: LYNDA NinaC Reason For Visit: R TOTAL KNEE Diagnosis Discharge Diagnosis (1) Debility: Status: Acute Code(s): R53.81 - Other malaise (2) Status post total right knee replacement: Status: Acute Code(s): Z96.651 - Presence of right artificial knee joint (3) Edema: Status: Acute Code(s): R60.9 - Edema, unspecified (4) Cellulitis of right knee: Status: Acute Code(s): L03.115 - Cellulitis of right lower limb (5) Dysphagia: Status: Acute Code(s): R13.10 - Dysphagia, unspecified (6) Vitamin D deficiency: Status: Acute Code(s): E55.9 - Vitamin D deficiency, unspecified (7) Benign prostate hyperplasia: Status: Acute Code(s): N40.0 - Benign prostatic hyperplasia without lower urinary tract symptoms (8) Neuropathic pain: Status: Acute Code(s): M79.2 - Neuralgia and neuritis, unspecified (9) Hyperlipidemia: Status: Acute Code(s): E78.5 - Hyperlipidemia, unspecified Plan 81 year old male with below past medical history underwent right total knee replacement 11/05/[address] Fox, admitted to TCU with debility, here for rehabilitation, strengthening, prior to discharge home alone. Debility - PT/OT. Dysphagia - ST. Pain - Tylenol 1000mg q8h, Oxycodone 5-10mg q4h prn pain (5-10). Bowel - Miralax 17gm daily, senna/colace 2 tablets bid, Dulcolax 10mg daily prn. Adult immunization - Aspirin 81mg bid thru 12/05/2021. Hyperlipidemia - Atorvastatin 40mg qhs. Right knee pain - X-ray right knee. Edema - Doppler ultrasound right lower extremity to rule out DVT. Cellulitis of right knee - Keflex 500mg bid x 7 days, Doxycycline 100mg bid x 7 days. B12 deficiency - B12 500mg qweek. Vitamin D deficiency - Vitamin D 1.25mg qweek. BPH - Finasteride 5mg daily. Neuropathic pain - gabapentin 300mg tid. Medications at Discharge Home Medications cyanocobalamin (vitamin B-12) 2,000 mcg tablet 1,000 mcg PO TINOCO SUPPLEMENT 06/17/14 finasteride 5 mg tablet 5 mg PO 1200 URINE 06/17/14 gabapentin 300 mg capsule 300 mg PO TID PAIN 06/17/14 Cholecalciferol (Vitamin D3) [Vitamin D3] 50,000 unit PO TINOCO SUPPLEMENT 02/02/15 rosuvastatin 20 mg tablet 20 mg PO QHS Cholesterol 03/28/21 acetaminophen 500 mg tablet 1,000 mg PO Q8 Pain 11/08/21 aspirin 81 mg chewable tablet 81 mg PO BID Heart 16 days #32 tabs 11/19/21 cephalexin 500 mg capsule 500 mg PO Q6 5 days #20 caps 11/19/21 doxycycline monohydrate 100 mg capsule 100 mg PO BID 5 days #10 caps 11/19/21 Hospital Course Operations total knee replacement (Right.) Procedures None Summary of Care Provided Minutes Spent on Discharge: 35 Hospital Course: 81 year old male with below past medical history underwent right total knee replacement 11/05/[address] Fox, admitted to TCU with debility, here for rehabilitation, strengthening, prior to discharge home alone. Discharge home alone 11/22/2021, [facility] PT/OT/SN. Physical Exam Const alert General Appearance: cooperative HEENT normocephalic Eyes PERRL and EOMs intact bilaterally Neck supple, no JVD and no carotid bruits Resp normal respiratory effort, normal air movement and clear to auscultation bilaterally Cardio regular rate and regular rhythm GI normal to inspection, nondistended, normoactive bowel sounds, non-tender and non-distended Extremity normal capillary refill General Extremity: Negative for edema Skin no rashes or lesions noted General Skin Exam: no breakdown Psych affect normal Appearance: appropriate Weight / BMI Weight Weight: 113.171 kg Body Mass Index (BMI) 33.2 ABG / Lab / Microbiology Data Result Diagrams: 11/16/21 05:43 11/16/21 05:43 Microbiology: Microbiology 11/15/21 06:09 Nasal Secretion SARS-CoV-2 Antigen (Rapid) - Final D/C Instructions Discharge Diet: No restrictions Discharge Activity: Return to Normal Activity, May Shower and Use Walker Weight Bearing Status: Weight bearing as tolerated Call your doctor if you observe: Fever of 101 or Higher, Inability to urinate, Inability to have a bowel movement, Shortness of breath, Dizziness, Fainting spells, Swelling in the ankles, Chest pain and Uncontrolled pain Additional Instructions: Discharge home alone 11/22/2021, [facility] Care PT/OT/SN. Please Follow Up With: Kayla Clinical Data Analyst Report Writer Meaningful Use Info Meaningful Use Diagnoses (Choose all that apply): None applicable Discharge Plan Admission Admit Date/Time: 11/08/21 15:33 Primary Reason for Your Visit: Debility. Attending Provider: Darwin Montenegro Chi Primary Care Provider: Diana Ayala Instructions Additional Instructions / Restrictions: Discharge home alone 11/22/2021, [facility] Care PT/OT/SN. Discharge Orders/Prescriptions Prescriptions: New doxycycline monohydrate 100 mg Capsule 100 mg PO BID 5 Days Qty: 10 0RF cephalexin 500 mg Capsule 500 mg PO Q6 5 Days Qty: 20 0RF Continued gabapentin 300 MG capsule 300 mg PO TID Label Comments: Neuropathy (nerve pain) finasteride 5 MG tablet 5 mg PO 1200 Label Comments: Enlarged prostate (BPH) cyanocobalamin (vitamin B-12) 2,000 MCG tablet 1,000 mcg PO TINOCO Label Comments: Vitamin supplement Cholecalciferol (Vitamin D3) [Vitamin D3] 5,000 UNIT capsule 50,000 unit PO TINOCO Label Comments: SUPPLEMENT rosuvastatin 20 mg Tablet 20 mg PO QHS acetaminophen 500 mg tablet 1,000 mg PO Q8 aspirin 81 mg tablet,chewable 81 mg PO BID 16 Days Qty: 32 0RF Discontinued ascorbic acid (vitamin C) [Vitamin C] 500 MG tablet 500 mg PO DAILY@0800 Label Comments: Vitamin supplement saw palmetto 160 MG capsule 450 mg PO QODAY Label Comments: Supplement oxycodone 5 mg Tablet 5 - 10 mg PO Q4H PRN PRN (Reason: Pain Score 6-10) 7 Days Qty: 60 0RF Referrals / Follow Up: Diana Ayala NP-C [Primary Care Provider] - 11/28/21 10:30 am Bi Espinoza PA-C [Med Staff - [facility]] - 12/04/21 10:15 am Disposition Disposition (needs filled in before D/C Order can be placed): Home Health Service
[2021-11-19] MEDS: Atorvastatin Calcium 40 MG Tablet PO (22:10)
[2021-11-20] MEDS: Gabapentin 300 MG Capsule PO ×3 (05:33→21:10)
[2021-11-20] MEDS: Doxycycline 100 MG CAPSULE PO ×2 (05:33→17:30)
[2021-11-20] MEDS: Cephalexin 500 MG Capsule PO ×3 (05:33→17:30)
[2021-11-20] MEDS: Acetaminophen 500 MG Tablet 1000 MG PO ×3 (05:34→21:11)
[2021-11-20] MEDS: Aspirin 81 MG TAB.CHEW PO ×2 (07:57→17:30)
[2021-11-20] MEDS: Finasteride 5 MG Tablet PO (11:26)
[2021-11-20 15:06] VITALS: BP 105/72; PULSE 86; RESP 18; TEMP 36; O2SAT 96
[2021-11-20] MEDS: Atorvastatin Calcium 40 MG Tablet PO (21:10)
[2021-11-20 22:11] VITALS: PULSE 79; RESP 14; O2SAT 94
[2021-11-21] MEDS: Cephalexin 500 MG Capsule PO ×5 (00:11→23:27)
[2021-11-21] MEDS: Acetaminophen 500 MG Tablet 1000 MG PO ×3 (05:13→21:22)
[2021-11-21] MEDS: Doxycycline 100 MG CAPSULE PO ×2 (05:13→17:10)
[2021-11-21] MEDS: Senna/Docusate Sodium 1 Tablet 2 TABLET PO (05:14)
[2021-11-21] MEDS: Gabapentin 300 MG Capsule PO ×3 (05:15→21:21)
[2021-11-21] MEDS: Aspirin 81 MG TAB.CHEW PO ×2 (08:09→17:10)
[2021-11-21] MEDS: Finasteride 5 MG Tablet PO (11:48)
[2021-11-21 13:10] VITALS: PULSE 83; O2SAT 98
[2021-11-21 15:19] VITALS: BP 115/65; PULSE 72; RESP 21; TEMP 36.1; O2SAT 97
[2021-11-21] MEDS: Atorvastatin Calcium 40 MG Tablet PO (21:22)
[2021-11-22] MEDS: Doxycycline 100 MG CAPSULE PO (05:26)
[2021-11-22] MEDS: Polyethylene Glycol 3350 17 GM PACKET PO (05:26)
[2021-11-22] MEDS: Gabapentin 300 MG Capsule PO (05:26)
[2021-11-22] MEDS: Acetaminophen 500 MG Tablet 1000 MG PO (05:27)
[2021-11-22] MEDS: Cephalexin 500 MG Capsule PO (05:27)
[2021-11-22] MEDS: Aspirin 81 MG TAB.CHEW PO (07:56)
[2021-11-22 09:19] VITALS: BP 118/66; PULSE 75; RESP 16; TEMP 37; O2SAT 96
[2021-11-22 09:25] VITALS: PULSE 77; RESP 16; O2SAT 97
[2021-11-22] MEDS: oxyCODONE 5 MG Tablet PO (09:33)
--- NOTE | 2021-11-22 09:52 | CASEMGMT ---
Social Work Brief interview mental status (BIMS) and resident mood interview (PHQ-9) completed on this day. BIMS score 14/15. PHQ-9 score 04/22. Pooja VIDES, KITS
== END 2021-11-22 10:45 | disposition home health service (06) | DRG 560 ==
PROVIDERS: Admitting Provider Family Medicine Geriatric Medicine; PCP Nurse Practitioner Family; Visit Provider Family Medicine Geriatric Medicine
DX: Z47.1 Aftercare following joint replacement surgery (principal); L03.115 Cellulitis of right lower limb; E55.9 Vitamin D deficiency, unspecified; G62.9 Polyneuropathy, unspecified; E78.00 Pure hypercholesterolemia, unspecified; E53.8 Deficiency of other specified B group vitamins; N40.0 Benign prostatic hyperplasia without lower urinary tract symptoms; Z87.891 Personal history of nicotine dependence; R13.10 Dysphagia, unspecified; Z96.651 Presence of right artificial knee joint; Z79.899 Other long term (current) drug therapy; Z79.82 Long term (current) use of aspirin; Z85.72 Personal history of non-Hodgkin lymphomas; Z23 Encounter for immunization
CPT/HCPCS: 0124A; 36415; 73562; 80048; 85025; 87811; 91312; 92610; 97110; 97116; 97162; 97166; 97530; 97535; 97803

== ENCOUNTER → 2021-11-09 | Outpatient (CLI) | payer MEDICARE, SELFPAY ==
--- NOTE | 2021-11-09 10:45 | VDLE_ITS ---
Reason For Study: Swelling RIGHT GSV is normal. CFV is compressible, spontaneous, phasic, competent and demonstrates normal augmentation. FV is compressible, spontaneous, phasic, competent and demonstrates normal augmentation. POP V is compressible, spontaneous, phasic, competent and demonstrates normal augmentation. T/P Trunk is compressible. PTV is compressible. RT PerV is compressible. Nonvascularized structure noted in the right popliteal fossa that measures 1.79 x 1.66 x 3.62 cm. Procedure This is a venous duplex using B-mode, color flow and spectral Doppler. Exam performed portable in patient room. A preliminary report was called and/or faxed to TCU. VL/Venous Duplex US, Unilateral Interpretation Summary Deep veins of the right lower extremity are patent and compressible segmentally . There is no evidence of right lower extremity deep vein thrombosis. Valvular competence cameron ears intact within the proximal deep venous system on the right . The right great saphenous vein a ppears patent and compressible segmentally. A non-vascular, hypoechoic structure is noted in the right popliteal space, measuring 1.79 cm x 1.66 cm x 3.62 cm. This probably represents a poplit eal cyst. Clinical correlation is advised. Ordering Physician: Darwin Montenegro Chi Referring Physician: Diana Ayala Performed By: Leilani Dale RVT
== END | disposition home or self-care (01) ==
PROVIDERS: PCP Nurse Practitioner Family; Referring Provider Family Medicine Geriatric Medicine; Visit Provider Family Medicine Geriatric Medicine
DX: M79.89 Other specified soft tissue disorders (principal)
CPT/HCPCS: 93971

== ENCOUNTER → 2022-08-23 | Outpatient (CLI) | payer MEDICARE, SELFPAY ==
--- NOTE | 2022-08-23 08:44 | ART_ITS ---
Reason For Study: PAD Procedure A bilateral lower extremity continuous wave Doppler with analog waveform analysis and ankle brachial indexes. Left Segmental Pressures Left brachial= 126mmHg. Left posterior tibial artery = 148mmHg. Left dorsalis pedis artery = 148mmHg. Left digit = 127 mmHg. Right Segmental Pressures Right brachial= 113mmHg. Right posterior tibial artery = 156mmHg. Right dorsalis pedis artery = 152mmHg. Right digit = 126 mmHg. Indices The right ankle brachial index by the posterior tibial artery is 1.24. The right ankle brachial index by the dorsalis pedis is 1.21. The right digital-brachial index is 1.0. The left ankle brachial index by the posterior tibial artery is 1.17. The left ankle brachial index by the dorsalis pedis is 1.17. The left digital-brachial index is 1.01. VL/Ankle Brachial Index Interpretation Summary Right SALONI 1.24, normal. TBI and Doppler/PVR waveforms of the right ankle normal at rest. Left SALONI 1.17, normal. TBI and Doppler/PVR waveforms of the left ankle normal a t rest. Ordering Physician: Diamond Ayala Referring Physician: DIAMOND AYALA SERVICE STATION HELPER Performed By: Tia Alonso RDCS/RVT
== END | disposition home or self-care (01) ==
LOC: CVS 08:39
PROVIDERS: PCP Nurse Practitioner Family; Referring Provider Nurse Practitioner Family; Visit Provider Nurse Practitioner Family
DX: I73.9 Peripheral vascular disease, unspecified (principal)
CPT/HCPCS: 93922

== ENCOUNTER → 2022-09-03 | Outpatient (CLI) | payer MEDICARE, SELFPAY ==
[2022-09-03 11:41] LABS: PSA,Total- Diagnostic 0.72 ng/mL (0.0-4.0)
== END | disposition home or self-care (01) ==
LOC: LAB 09:52
PROVIDERS: PCP Nurse Practitioner Family; Referring Provider Urology; Visit Provider Urology
DX: C61 Malignant neoplasm of prostate (principal)
CPT/HCPCS: 36415; 84153

== ENCOUNTER → 2022-12-09 | Outpatient (CLI) | payer MEDICARE, SELFPAY ==
[2022-12-09 12:47] LABS: PSA,Total - Annual Screen 0.63 ng/mL (0.00-4.00)
== END | disposition home or self-care (01) ==
LOC: MTLAB 09:30
PROVIDERS: PCP Nurse Practitioner Family; Referring Provider Nurse Practitioner Family; Visit Provider Nurse Practitioner Family
DX: Z12.5 Encounter for screening for malignant neoplasm of prostate (principal)
CPT/HCPCS: 36415; 84153; G0103

== ENCOUNTER → 2023-04-22 | Outpatient (CLI) | payer MEDICARE, SELFPAY | END | disposition home or self-care (01) | PROVIDERS: PCP Nurse Practitioner Family; Referring Provider Ophthalmology; Visit Provider Ophthalmology | DX: H02.412 Mechanical ptosis of left eyelid (principal); R51.9 Headache, unspecified | CPT/HCPCS: 36415; 84238 ==

== ENCOUNTER → 2023-05-01 | Outpatient (CLI) | payer MEDICARE, SELFPAY ==
--- NOTE | 2023-05-01 07:49 | CT_ITS ---
INDICATION: L PTOSIS -- PTOSIS EXAMINATION: CT BRAIN WITHOUT CONTRAST, CTA HEAD, AND CTA NECK TECHNIQUE: Noncontrast axial images were obtained of the brain. Subsequently, routine carotid CT angiogram protocol was performed without and with IV contrast. In addition, images were obtained of the [place]. NASCET criteria using the distal ICAs for comparison were used for evaluation of stenoses. 3D reconstructions were reviewed. A radiation dose optimization technique was used for this scan. IV Contrast dosage and agent: 100 cc of [id number] COMPARISON: No relevant prior comparison study available FINDINGS: --CT BRAIN WITHOUT CONTRAST: BRAIN PARENCHYMA: No intra- or extra-axial hemorrhage. No evidence of acute infarct. No intracranial mass or mass effect. There is preservation of the kim/white matter interface. Periventricular deep white matter changes likely due to chronic microvascular disease. Posterior fossa structures are unremarkable. CSF SPACES: Mild diffuse atrophy appropriate for patient''s age. Basal cisterns are patent. CALVARIUM, SKULL BASE, PARANASAL SINUSES AND MASTOID AIR CELLS: Clear. No discrete lytic or blastic abnormalities. --CTA NECK: AORTIC ARCH AND BRANCHES: Normal anatomy, patent. RIGHT CCA: No occlusion, significant stenosis or dissection. RIGHT ICA: Minimal atherosclerotic calcifications in the proximal right internal carotid artery. No significant stenosis. LEFT CCA: No occlusion, significant stenosis or dissection. LEFT ICA: No occlusion, significant stenosis or dissection. RIGHT VERTEBRAL ARTERY: No occlusion, significant stenosis or dissection. LEFT VERTEBRAL ARTERY: No occlusion, significant stenosis or dissection. NECK SOFT TISSUES: Unremarkable. --CTA HEAD: --Anterior circulation: ICAs: Minimal atherosclerotic calcifications of the cavernous internal carotid arteries. No stenosis. ACAs: Mild narrowing of the left A1 segment likely due to hypoplastic development. No stenosis. ACOM: Present. MCAs: No significant stenosis at the visualized segments. --Posterior circulation: PCOMs: origin of the right posterior cerebral artery. Nonvisualization of the left posterior communicating artery. cabinet assembler: No significant stenosis at the visualized segments. BASILAR ARTERY: No significant stenosis. VERTEBRAL ARTERIES: No significant stenosis at the intradural/visualized segments. No evidence of intracranial aneurysm or vascular malformation. CT/CTA Head AND Neck W/ Contrast IMPRESSION: 1. No intracranial great vessel stenosis. 2. Essentially unremarkable common and internal carotid arteries bilaterally. 3. Patent bilateral vertebral arteries without significant stenosis or dissection. Electronically Signed: Suman Gallagher MD at 15:45 EST ,
[2023-05-01 08:17] LABS: CREATININE FINGERSTICK < 1.0 mg/dL (0.70-1.30); EGFR FINGERSTICK > 60.0000 mL/min (>60)
== END | disposition home or self-care (01) ==
PROVIDERS: PCP Nurse Practitioner Family; Referring Provider Ophthalmology; Visit Provider Ophthalmology
DX: H02.412 Mechanical ptosis of left eyelid (principal); R51.9 Headache, unspecified
CPT/HCPCS: 70496; 70498; Q9967

== ENCOUNTER → 2023-12-16 | Outpatient (CLI) | payer MEDICARE, SELFPAY ==
--- NOTE | 2023-12-16 11:29 | US_ITS ---
STUDY: ULTRASOUND - URINARY BLADDER REASON FOR EXAM: Male, 83 years old. MEASURE POSTVOID RESIDUAL URINE VOLUME -- Urinary retention with incomplete bladder emptining TECHNIQUE: Ultrasound evaluation of the urinary bladder was performed with real-time and static kim-scale imaging. COMPARISON: None. FINDINGS: There is no right UVJ calculus. There is a visualized right ureteral jet . There is no left UVJ calculus. There is a visualized left ureteral jet . The distended volume of the urinary bladder is 118 ml. The empty volume of the urinary bladder is 20 ml. The bladder wall is within normal limits. The bladder wall measures . There is no demonstrated bladder wall mass lesion. There are no demonstrated bladder calculi. US/Post Void Residual Bladder IMPRESSION: Normal ultrasound of the urinary bladder. Electronically Signed: Cristian Mckay MD at 10:03 EDT ,
== END | disposition home or self-care (01) ==
PROVIDERS: PCP Nurse Practitioner Family; Referring Provider Internal Medicine; Visit Provider Internal Medicine
DX: R33.9 Retention of urine, unspecified (principal)
CPT/HCPCS: 51798

== ENCOUNTER → 2024-03-04 | Outpatient (CLI) | payer MEDICARE, SELFPAY ==
[2024-03-04 11:22] LABS: PSA,Total- Diagnostic 0.62 ng/mL (0.0-4.0)
== END | disposition home or self-care (01) ==
LOC: LAB 10:36
PROVIDERS: PCP Nurse Practitioner Family; Referring Provider Nurse Practitioner; Visit Provider Nurse Practitioner
DX: C61 Malignant neoplasm of prostate (principal)
CPT/HCPCS: 36415; 84153

== ENCOUNTER → 2024-07-13 | Outpatient (CLI) | payer MEDICARE, SELFPAY ==
--- NOTE | 2024-07-13 12:29 | ART_ITS ---
Reason For Study Reason For Study: PVD Procedure A bilateral lower extremity continuous wave Doppler with analog waveform analysis,segmental pressures,and ankle brachial indexes without exercise. Left Segmental Pressures Left brachial= 108mmHg. Left posterior tibial artery = 157mmHg. Left dorsalis pedis artery = 147mmHg. Left digit = 119 mmHg. The left posterior tibial artery waveforms are triphasic. The left dorsalis pedis waveforms are triphasic. Right Segmental Pressures Right brachial= 113mmHg. Right posterior tibial artery = 145mmHg. Right dorsalis pedis artery = 166mmHg. Right digit = 93 mmHg. The right posterior tibial artery waveforms are triphasic. The right dorsalis pedis waveforms are triphasic. Indices The right ankle brachial index by the posterior tibial artery is 1.28. The right ankle brachial index by the dorsalis pedis is 1.47. The left ankle brachial index by the posterior tibial artery is 1.39. The left ankle brachial index by the dorsalis pedis is 1.30. The left digital-brachial index is 1.05. VL/Lower Ext Art Exam w/o Exercis Interpretation Summary Triphasic Doppler waveforms are noted at ankle level bilaterally. Pulse-volume recordings appear diminished at ankle and digital level on the right, but satisfactory at all other levels bilaterally. T he resting right ankle-brachial index is supra-normal. The resting left ankle-brachial index is normal. Digital-brachial indices are normal bilaterally. There is evidence of arterial calcification at ankle level on the right. There is no evidence of significant arterial occlusive disease in the lower extremities bilaterally. Ordering Physician: Diana Ayala Referring Physician: Diana Ayala Performed By: Carlton Galeas RVT
== END | disposition home or self-care (01) ==
LOC: CVS 12:28
PROVIDERS: PCP Nurse Practitioner Family; Referring Provider Nurse Practitioner Family; Visit Provider Nurse Practitioner Family
DX: I73.9 Peripheral vascular disease, unspecified (principal)
CPT/HCPCS: 93923

== ENCOUNTER 2024-09-03 09:40 | Emergency (ER) | payer MEDICARE, SELFPAY ==
[2024-09-03] VITALS (18 sets, daily range): BP systolic 106–141; BP diastolic 59–92; PULSE 52–81; RESP 12–21; TEMP 36.1–36.6; O2SAT 94–100; BMI 28.8
--- NOTE | 2024-09-03 10:12 | EX.ED.DYSGE1 ---
HPI History of Present Illness Chief Complaint: Neuro S/Sx Informant: patient Onset/Context/Timing Onset: Days (2) Context: Gradual Onset Timing: Continuous Quality: Lightheaded Location: Generalized Worsened by: Nothing Relieved by: Nothing Narrative Narrative: Patient presents with lightheadedness that has been intermittent over the past 2 days. Patient states he feels lightheaded. Patient states he was standing and making coffee when he felt lightheaded yesterday. Patient states he tried to walk and sit down but fell. Patient remembers putting his hands out to catch his fall. Patient states he hit his head on his right hand. Patient denies any loss of consciousness. Patient states nothing makes his symptoms worse and nothing makes them better. Patient denies any palpitations. Patient denies any tinnitus or hearing changes. [facility] Medical History Loss of hearing Alcohol use Prostate disease Back pain Fall Intermittent lightheadedness Shortness of breath on exertion History of pain when walking Wears glasses Uses wheelchair Walker as ambulation aid History of leukemia Former smoker History of edema High cholesterol Leukopenia Neutropenia Glaucoma Arthritis B-cell lymphoma Basal cell carcinoma Non-Hodgkin lymphoma Home Medications ?Medication ?Instructions ?Recorded ?Last Taken ?Type cyanocobalamin (vitamin B-12) 1,000 mcg PO TINOCO SUPPLEMENT 06/17/14 03/06/16 History 2,000 mcg tablet finasteride 5 mg tablet 5 mg PO 1200 URINE 06/17/14 03/06/16 History gabapentin 300 mg capsule 300 mg PO TID PAIN 06/17/14 03/07/16 06:00 History rosuvastatin 20 mg tablet 20 mg PO QHS Cholesterol 03/28/21 Unknown History acetaminophen 500 mg tablet 1,000 mg PO Q8 Pain 11/08/21 Unknown History aspirin 81 mg chewable tablet 81 mg PO BID Heart 16 days #32 tabs 11/19/21 Unknown Rx Inf-Zyme Forte PO 06/30/24 Unknown History Vitamin E PO 06/30/24 Unknown History ascorbic acid (vitamin C) 1,000 mg 1 g PO Q6H 06/30/24 Unknown History capsule ergocalciferol (vitamin D2) 1,250 1,250 mcg PO QWEEK 06/30/24 Unknown History mcg (50,000 unit) capsule fenofibrate nanocrystallized 145 145 mg PO QDAY 06/30/24 Unknown History mg tablet psyllium seed (sugar) oral powder 1 tbsp PO ONCE 06/30/24 Unknown History (Metamucil (sugar) oral powder) bhavin gomez 450 mg capsule 450 mg PO .QOD 06/30/24 Unknown History Allergy/AdvReac Type Severity Reaction Status Date / Time No Known Allergies Allergy Verified 09/03/24 09:41 Family History Father Kidney disease Heart disease Surgical History History of transurethral resection of prostate History of hip replacement History of total left knee replacement (TKR) History of back surgery History of tonsillectomy History of local excision of skin lesion Social History household members: none Smoking Status: Former smoker alcohol intake: never substance use type: does not use ROS ROS ED Constitutional Constitutional ED: Denies chills or fever(s) Eyes Eyes: Denies blurry vision or change in vision ENT ENT ED: Reports rhinorrhea; Denies sore throat Cardiovascular Cardiovascular: Denies chest pain or palpitations Respiratory/Chest Respiratory/Chest: Denies cough or dyspnea Gastrointestinal Gastrointestinal: Denies nausea or vomiting Genitourinary Genitourinary ED: Denies dysuria or hematuria Musculoskeletal Musculoskeletal: Reports neck pain; Denies back pain Integumentary Denies abscess or rash Neurologic Neurologic: Reports weakness; Denies headache(s) Allergic/Immunologic Allergic/Immunologic ED: Denies mouth swelling or urticaria EXAM Physical Exam Const Vital Signs: 09/03/24 09:40 09/03/24 10:40 09/03/24 11:01 Temperature 96.9 F L Temperature Source Temporal Pulse Rate 81 72 Pulse Rate [Lying] Pulse Rate [Sitting (for 1 minute prior to obtaining)] Pulse Rate [Standing (for 1 minute prior to obtaining)] Respiratory Rate 14 12 Blood Pressure 119/64 125/92 H 124/59 H Blood Pressure [Lying] Blood Pressure [Sitting (for 1 minute prior to obtaining)] Blood Pressure [Standing (for 1 minute prior to obtaining)] Blood Pressure Mean 82 103 79 Blood Pressure Mean [Lying] Blood Pressure Mean [Sitting (for 1 minute prior to obtaining)] Blood Pressure Mean [Standing (for 1 minute prior to obtaining)] Pulse Ox 98 97 Oxygen Delivery Method Room Air Room Air 09/03/24 11:01 09/03/24 11:11 09/03/24 11:15 Temperature Temperature Source Pulse Rate 54 L 55 L 64 Pulse Rate [Lying] Pulse Rate [Sitting (for 1 minute prior to obtaining)] Pulse Rate [Standing (for 1 minute prior to obtaining)] Respiratory Rate 15 15 21 H Blood Pressure 124/59 H Blood Pressure [Lying] Blood Pressure [Sitting (for 1 minute prior to obtaining)] Blood Pressure [Standing (for 1 minute prior to obtaining)] Blood Pressure Mean 79 Blood Pressure Mean [Lying] Blood Pressure Mean [Sitting (for 1 minute prior to obtaining)] Blood Pressure Mean [Standing (for 1 minute prior to obtaining)] Pulse Ox 98 98 96 Oxygen Delivery Method Room Air 09/03/24 11:29 09/03/24 11:30 09/03/24 11:31 Temperature Temperature Source Pulse Rate 54 L 56 L Pulse Rate [Lying] 58 L Pulse Rate [Sitting (for 1 minute prior to obtaining)] 61 Pulse Rate [Standing (for 1 minute prior to obtaining)] 68 Respiratory Rate 19 H 16 Blood Pressure 106/61 Blood Pressure [Lying] 106/61 Blood Pressure [Sitting (for 1 minute prior to obtaining)] 121/67 H Blood Pressure [Standing (for 1 minute prior to obtaining)] 126/69 H Blood Pressure Mean 76 Blood Pressure Mean [Lying] 76 Blood Pressure Mean [Sitting (for 1 minute prior to obtaining)] 85 Blood Pressure Mean [Standing (for 1 minute prior to obtaining)] 88 Pulse Ox 98 96 Oxygen Delivery Method 09/03/24 11:33 09/03/24 11:36 09/03/24 11:45 Temperature Temperature Source Pulse Rate 62 70 57 L Pulse Rate [Lying] Pulse Rate [Sitting (for 1 minute prior to obtaining)] Pulse Rate [Standing (for 1 minute prior to obtaining)] Respiratory Rate 19 H 19 H 13 Blood Pressure 121/67 H 126/69 H Blood Pressure [Lying] Blood Pressure [Sitting (for 1 minute prior to obtaining)] Blood Pressure [Standing (for 1 minute prior to obtaining)] Blood Pressure Mean 83 85 Blood Pressure Mean [Lying] Blood Pressure Mean [Sitting (for 1 minute prior to obtaining)] Blood Pressure Mean [Standing (for 1 minute prior to obtaining)] Pulse Ox 96 99 Oxygen Delivery Method 09/03/24 12:00 09/03/24 12:15 09/03/24 12:30 Temperature Temperature Source Pulse Rate 62 57 L 60 Pulse Rate [Lying] Pulse Rate [Sitting (for 1 minute prior to obtaining)] Pulse Rate [Standing (for 1 minute prior to obtaining)] Respiratory Rate 13 18 12 Blood Pressure 114/59 L 120/68 Blood Pressure [Lying] Blood Pressure [Sitting (for 1 minute prior to obtaining)] Blood Pressure [Standing (for 1 minute prior to obtaining)] Blood Pressure Mean 76 85 Blood Pressure Mean [Lying] Blood Pressure Mean [Sitting (for 1 minute prior to obtaining)] Blood Pressure Mean [Standing (for 1 minute prior to obtaining)] Pulse Ox 100 99 100 Oxygen Delivery Method Room Air 09/03/24 13:00 09/03/24 14:00 09/03/24 15:00 Temperature Temperature Source Pulse Rate 64 67 64 Pulse Rate [Lying] Pulse Rate [Sitting (for 1 minute prior to obtaining)] Pulse Rate [Standing (for 1 minute prior to obtaining)] Respiratory Rate 18 20 H 18 Blood Pressure 112/66 109/64 141/78 H Blood Pressure [Lying] Blood Pressure [Sitting (for 1 minute prior to obtaining)] Blood Pressure [Standing (for 1 minute prior to obtaining)] Blood Pressure Mean 81 79 99 Blood Pressure Mean [Lying] Blood Pressure Mean [Sitting (for 1 minute prior to obtaining)] Blood Pressure Mean [Standing (for 1 minute prior to obtaining)] Pulse Ox 94 95 98 Oxygen Delivery Method Room Air Room Air Positive well nourished and well developed General Appearance ED: well developed and NAD HEENT Reports moist mucous membranes Eyes PERRL and EOMs intact bilaterally Neck supple and no JVD Resp normal respiratory effort and clear to auscultation bilaterally Cardio regular rhythm Rate: bradycardia GI non-tender and non-distended Palpation: soft Extremity Extremity Narrative: There is edema of the right lower extremity. (Daughter states this is chronic and unchanged). There is no calf tenderness. There is no edema of the left lower extremity. General Extremety ED: Negative for tenderness Neuro oriented x3, CN's II-XII intact bilaterally and no sensory deficits noted Sensorium / Orientation: alert Motor Exam: strength 5/5 throughout Psych mental status grossly normal MDM MDM MDM Narrative Medical decision making narrative: Differential diagnosis includes intracranial bleeding, stroke, electrolyte abnormality, dehydration, hypovolemia, cardiac dysrhythmia, cardiac ischemia, pneumonia, bronchitis, cervical spine fracture, cervical strain, and urinary tract infection. CT scan of the brain will be obtained to assess for intracranial bleeding and stroke. CT scan of the cervical spine will be obtained to assess for cervical fracture and spondylolisthesis. Chest x-ray will be obtained to assess for pneumonia and bronchitis. EKG will be obtained to assess for cardiac dysrhythmia and cardiac ischemia. CBC will be obtained to assess for leukocytosis and anemia. Basic metabolic profile will be obtained to assess for electrolyte abnormality and renal function. High-sensitivity troponin will be obtained to assess for cardiac ischemia. 2-hour repeat high-sensitivity troponin will be obtained to assess for ongoing cardiac ischemia. Urinalysis will be obtained to assess for urinary tract infection and hematuria. Orthostatic vital signs will be obtained to assess for hypovolemia and orthostatic hypotension. History & Record Review Additional record(s) reviewed:: Prior outpatient record, Prior ED visit and Prior labs Lab Data Attestation: I reviewed the patient's lab results. Lab results narrative: CBC was reviewed. There is a mild pancytopenia with a white blood cell count 3.9, hemoglobin 12.5, hematocrit 37.8, and platelets of 73. Basic metabolic profile was reviewed. BUN was slightly elevated at 36 and creatinine was 1.39. These are consistent with previous results. Initial high-sensitivity troponin was slightly elevated at 33. 2-hour repeat high-sensitivity troponin was reviewed and was 30. Urinalysis was reviewed. There is no evidence of urinary tract infection or hematuria. Labs: Laboratory Results - last 24 hr 09/03/24 09/03/24 09/03/24 10:05 10:12 12:17 WBC 3.9 L RBC 4.11 L Hgb 12.5 L Hct 37.8 L MCV 92.0 MCH 30.4 MCHC 33.1 RDW Std Deviation 47.9 H RDW Coeff of April 14.2 Plt Count 73 L MPV 14.0 H Immature Gran % (Auto) 0.800 Neut % (Auto) 72.8 H Lymph % (Auto) 14.0 L [place] % (Auto) 10.4 H Eos % (Auto) 1.5 Baso % (Auto) 0.5 Absolute Neuts (auto) 2.9 Absolute Lymphs (auto) 0.55 L Nucleated RBC % 0 Sodium 142 Potassium 4.1 Chloride 109 H Carbon Dioxide 23.0 Anion Gap 10 BUN 36 H Creatinine 1.39 H Estim Creat Clear Calc 46.76 L Est GFR (MDRD) Non-Af 50 L BUN/Creatinine Ratio 26.0 H Glucose 98 Calcium 9.2 Troponin T High Sens 33 H Troponin T Hi Sens 2 Hr 30 H Urine Color Urine Clarity Urine pH Ur Specific [place] Urine Protein Urine Glucose (UA) Urine Ketones Urine Occult Blood Urine Nitrite Urine Bilirubin Urine Urobilinogen Ur Leukocyte Esterase Urine RBC Urine WBC Ur Squamous Epith Cells Urine Bacteria Urine Mucus POC Glucose 100 09/03/24 12:40 WBC RBC Hgb Hct MCV MCH MCHC RDW Std Deviation RDW Coeff of April Plt Count MPV Immature Gran % (Auto) Neut % (Auto) Lymph % (Auto) [place] % (Auto) Eos % (Auto) Baso % (Auto) Absolute Neuts (auto) Absolute Lymphs (auto) Nucleated RBC % Sodium Potassium Chloride Carbon Dioxide Anion Gap BUN Creatinine Estim Creat Clear Calc Est GFR (MDRD) Non-Af BUN/Creatinine Ratio Glucose Calcium Troponin T High Sens Troponin T Hi Sens 2 Hr Urine Color Yellow Urine Clarity Clear Urine pH 6.0 Ur Specific [place] 1.025 Urine Protein 30 H Urine Glucose (UA) Normal Urine Ketones 5 H Urine Occult Blood Negative Urine Nitrite Negative Urine Bilirubin Negative Urine Urobilinogen 1 H Ur Leukocyte Esterase 25 H Urine RBC 0 SEEN Urine WBC 0-5 SEEN Ur Squamous Epith Cells 0 SEEN Urine Bacteria 0 SEEN Urine Mucus 0 SEEN POC Glucose Radiography Diagnostic Testing: Clinical Impression(s) from Imaging Studies Brain CT 09/03/24 11:25 IMPRESSION: No acute intracranial hemorrhage, midline shift or mass effect. If symptoms persist, further evaluation with MRI is recommended. Reading Location: [facility] Cervical Spine CT 09/03/24 11:25 IMPRESSION: 1. No acute fracture. 2. Degenerative changes as above. Reading Location: [facility] CT scan of the brain was obtained. There is no acute intracranial abnormality. This was interpreted by the radiologist and was also independently reviewed by myself. CT scan of the cervical spine was obtained. There is no acute fracture or spondylolisthesis. There are degenerative changes noted. There is no soft tissue swelling. This was interpreted by the radiologist and was also independently reviewed by myself. EKG Initial EKG: Attestation: I personally reviewed and interpreted this EKG as follows: Interpretation: No Acute Injury Pattern and Sinus Bradycardia (51) Comments: EKG was obtained. On my independent interpretation, it showed a sinus bradycardia with a rate of 51. TX interval, QRS interval, and QTc intervals were all normal. [place] was normal. There are no acute ST or T wave changes. Prior EKG tracings: available for review Prior: Unchanged (04/02/2021) Treatment and Re-Evaluation :: Patient was advised of his findings. Patient was feeling better on reevaluation. Patient was able to ambulate in the hallway without difficulty. Patient was instructed to drink plenty of fluids. Patient was instructed to follow-up with his primary care physician in 5 to 7 days. Patient was instructed to return if worse in any way. Patient understood and was agreeable with the plan. All questions were answered. Discharge Plan Triage Chief Complaint: Neuro S/Sx ED Provider: Elbert Briceño Dx/Rx/DC Orders Clinical Impression: Intermittent lightheadedness, Chronic lymphocytic leukemia in remission Instructions: ED Dizziness, Uncertain Cause Prescriptions: No Action Metamucil (sugar) Powder 1 tbsp PO ONCE ergocalciferol (vitamin D2) 1,250 mcg (50,000 unit) capsule 1,250 mcg PO QWEEK fenofibrate nanocrystallized 145 mg tablet 145 mg PO QDAY saw palmetto 450 mg capsule 450 mg PO .QOD Rx Instructions: give with food (meal/snack) Inf-Zyme Forte PO ascorbic acid (vitamin C) 1,000 mg capsule 1 g PO Q6H Vitamin E 500 mg PO gabapentin 300 MG capsule 300 mg PO TID Patient Comments: Neuropathy (nerve pain) finasteride 5 MG tablet 5 mg PO 1200 Patient Comments: Enlarged prostate (BPH) cyanocobalamin (vitamin B-12) 2,000 MCG tablet 1,000 mcg PO TINOCO Patient Comments: Vitamin supplement rosuvastatin 20 mg Tablet 20 mg PO QHS acetaminophen 500 mg tablet 1,000 mg PO Q8 aspirin 81 mg tablet,chewable 81 mg PO BID 16 Days Qty: 32 0RF Primary Care Provider: Diana Ayala Referrals: Diana Ayala, TUFT MACHINE OPERATOR-C [Primary Care Provider] - 3-5 Days Print Language: Cameroonian Disposition Disposition: Home, Self Care
[2024-09-03 11:07] LABS: Hematocrit 37.8 % (40-54); Hemoglobin 12.5 g/dL (13.0-16.5); Immature Granulocytes Count 0.030 X10^3/uL (0.0-0.0); Mean Corp Hgb Conc 33.1 g/dL (32-36); Mean Corpuscular Volume 92.0 fL (80-94); Mean Platelet Vol. 14.0 fl (6.2-12.0); NRBC Flagged by Analyzer 0 % (0-5); POSITIVE COUNT YES; POSITIVE DIFFERENTIAL YES; Platelet Count 73 K/mm3 (150-450); RBC Distribution Width CV 14.2 % (11.6-14.6); RBC Distribution Width SD 47.9 fl (35.1-43.9); Red Blood Count 4.11 M/mm3 (4.6-6.2); White Blood Count 3.9 K/mm3 (4.4-11.0)
--- NOTE | 2024-09-03 11:25 | CT_ITS ---
EXAM: CT Cervical Spine Without Intravenous Contrast CLINICAL INDICATION: INJURY/PAIN TECHNIQUE: Axial computed tomography images of the cervical spine without intravenous contrast. This CT exam was performed using one or more of the following dose reduction techniques: automated exposure control, adjustment of the mA and/or kV according to patient size, and/or use of iterative reconstruction technique. COMPARISON: No relevant prior studies available. FINDINGS: VERTEBRAE: Mild reversal cervical spine lordosis. Possible sclerotic lesion at C4 vertebral body, likely bone island. No acute fracture. DISCS/SPINAL CANAL/NEURAL FORAMINA: No acute findings. No significant spinal canal stenosis. SOFT TISSUES: Unremarkable. LUNG APICES: Partially visualized pulmonary nodule of the left lung apex measuring up to [address]/Spine Cervical without Contras IMPRESSION: 1. No acute fracture. 2. Degenerative changes as above. Reading Location: [facility]
--- NOTE | 2024-09-03 11:25 | CT_ITS ---
EXAM: CT Head Without Intravenous Contrast CLINICAL INDICATION: INJURY/PAIN TECHNIQUE: Axial computed tomography images of the head/brain without intravenous contrast. This CT exam was performed using one or more of the following dose reduction techniques: automated exposure control, adjustment of the mA and/or kV according to patient size, and/or use of iterative reconstruction technique. COMPARISON: No relevant prior studies available. FINDINGS: BRAIN AND EXTRA-AXIAL SPACES: No acute intracranial hemorrhage, midline shift or mass effect. If symptoms persist, further evaluation with MRI is recommended. No significant white matter disease. BONES/JOINTS: Unremarkable. No acute fracture. SOFT TISSUES: Unremarkable. SINUSES: Unremarkable as visualized. No acute sinusitis. MASTOID AIR CELLS: Unremarkable as visualized. No mastoid effusion. CT/Brain/Head without Contrast IMPRESSION: No acute intracranial hemorrhage, midline shift or mass effect. If symptoms per sist, further evaluation with MRI is recommended. Reading [facility] [place]
[2024-09-03 11:39] LABS: Anion Gap 10 (5-15); BUN 36 mg/dL (4-19); BUN/Creat Ratio 26.0 RATIO (10-20); Calcium,Total 9.2 mg/dL (7.6-11.0); Carbon Dioxide 23.0 mmol/L (21.0-32.0); Chloride 109 mmol/L (98-108); Estimated Creatinine Clearance 46.76 ml/min (50-250); Glucose 98 mg/dL (70-99); Potassium 4.1 mmol/L (3.3-5.1)
[2024-09-03 11:40] LABS: Troponin T High Sensitivity 33 ng/L (<=22)
[2024-09-03 12:47] LABS: Mucous, Urine 0 SEEN /hpf (<or=2+); Red Blood Cells-Urine 0 SEEN /hpf (0-5); Squamous Epithelial Cells - UA 0 SEEN /hpf (0-5)
[2024-09-03 13:00] LABS: Color, Urine Yellow (Yellow); Glucose, Dipstick Normal (Normal); Ketone-Dipstick 5 mg/dl (Negative); Leukocyte Esterase-Dipstick 25 /ul (Negative); Nitrite-Dipstick Negative (Negative); Occult Blood-Urine Negative /ul (Negative); Protein-Dipstick 30 mg/dl (Negative); Specific Gravity, Urine 1.025 (1.002-1.030); Urine Bilirubin Dipstick Negative (Negative)
[2024-09-03 13:01] LABS: Troponin T High Sens 2 HR 30 ng/L (<=22)
== END 2024-09-03 17:02 | disposition home or self-care (01) ==
PROVIDERS: Emergency Provider Emergency Medicine; PCP Nurse Practitioner Family; Visit Provider Emergency Medicine
DX: R42 Dizziness and giddiness (principal); D61.818 Other pancytopenia; C91.11 Chronic lymphocytic leukemia of B-cell type in remission; S09.90XA Unspecified injury of head, initial encounter; W01.10XA Fall on same level from slipping, tripping and stumbling with subsequent striking against unspecified object, initial encounter; Y93.01 Activity, walking, marching and hiking; E78.00 Pure hypercholesterolemia, unspecified; Z79.82 Long term (current) use of aspirin; Z79.899 Other long term (current) drug therapy; Z87.891 Personal history of nicotine dependence
CPT/HCPCS: 70450; 72125; 80048; 81001; 82962; 84484; 85025; 93005; 99285

== ENCOUNTER → 2024-10-22 | Outpatient (CLI) | payer MEDICARE, SELFPAY ==
[2024-10-22 13:00] LABS: Hematocrit 40.8 % (40-54); Hemoglobin 13.4 g/dL (13.0-16.5); Immature Granulocytes Count 0.020 X10^3/uL (0.0-0.0); Mean Corp Hgb Conc 32.8 g/dL (32-36); Mean Corpuscular Volume 91.9 fL (80-94); Mean Platelet Vol. 13.5 fl (6.2-12.0); NRBC Flagged by Analyzer 0 % (0-5); Platelet Count 110 K/mm3 (150-450); RBC Distribution Width CV 13.9 % (11.6-14.6); RBC Distribution Width SD 47.0 fl (35.1-43.9); Red Blood Count 4.44 M/mm3 (4.6-6.2); White Blood Count 4.2 K/mm3 (4.4-11.0)
[2024-10-22 13:47] LABS: Anion Gap 13 (5-15); BUN 28 mg/dL (4-19); BUN/Creat Ratio 21.0 RATIO (10-20); Calcium,Total 10.3 mg/dL (7.6-11.0); Carbon Dioxide 24.6 mmol/L (21.0-32.0); Chloride 105 mmol/L (98-108); Glucose 95 mg/dL (70-99); Potassium 4.3 mmol/L (3.3-5.1)
== END | disposition home or self-care (01) ==
LOC: MTLAB 10:39
PROVIDERS: PCP Nurse Practitioner Family; Referring Provider Internal Medicine; Visit Provider Internal Medicine
DX: C91.11 Chronic lymphocytic leukemia of B-cell type in remission (principal); R42 Dizziness and giddiness
CPT/HCPCS: 36415; 80048; 85025

== ENCOUNTER 2024-11-01 17:53 | Observation (INO) | payer MEDICARE, SELFPAY ==
[2024-11-01] VITALS (9 sets, daily range): BP systolic 80–111; BP diastolic 46–76; PULSE 66–75; RESP 14–26; TEMP 36.2–36.6; O2SAT 96–100; BMI 27.6; BMI 26.4
--- NOTE | 2024-11-01 18:22 | EKG12_ITS ---
Test Reason : SYNCOPE Blood Pressure : */* mmHG Vent. Rate : 64 BPM Atrial Rate : 64 BPM P-R Int : 144 ms QRS Dur : 102 ms QT Int : 426 ms P-R-T Axes : 77 55 40 degrees QTcB Int : 439 ms Normal sinus rhythm Normal ECG Confirmed by Arvin Albarado ([id number]), newspaper editor managing MARCIA RAMIREZ ([id number]) on 11/02/2024 10:25:15 AM Referred By: Confirmed By: Arvin Albarado
--- NOTE | 2024-11-01 18:35 | CT_ITS ---
PROCEDURE: CT BRAIN/HEAD WITHOUT CONTRAST 11/01/2024 REASON FOR EXAM: SEIZURE-LIKE ACTIVITY TECHNIQUE: Procedure Code: CTBR Modality: CT Procedure: BRAIN/HEAD WITHOUT CONTRAST Coronal and Sagittal reconstruction series were provided. One or more dose reduction techniques were used (e.g., Automated exposure control, adjustment of the mA and/or kV according to patient size, use of iterative reconstruction technique. RADIATION DOSE SUMMARY: CTDlvol: 44.99 mGy DLP: 846.73 mGycm COMPARISON: 09/03/2024 FINDINGS: No acute intracranial hemorrhage, extra-axial collection, mass effect or evidence of acute infarct. Mild generalized brain parenchymal volume loss and chronic microangiopathic changes. Absent bad river band ocular lenses. Atherosclerotic calcification along the carotid siphons. Intact skull base and calvarium. Clear paranasal sinuses and mastoid air cells. CT/Brain/Head without Contrast IMPRESSION: No acute intracranial abnormality. Reading Location: [facility]
--- NOTE | 2024-11-01 19:03 | ED.RN ---
Dr. Gautam notified of low bp 80/46.
[2024-11-01 19:27] LABS: Anion Gap 11 (5-15); BUN 36 mg/dL (4-19); BUN/Creat Ratio 31.7 RATIO (10-20); Calcium,Total 9.3 mg/dL (7.6-11.0); Carbon Dioxide 22.6 mmol/L (21.0-32.0); Chloride 105 mmol/L (98-108); Estimated Creatinine Clearance 52.00 ml/min (50-250); Glucose 110 mg/dL (70-99); Potassium 4.0 mmol/L (3.3-5.1); Procalcitonin 0.10 ng/mL (<=0.10)
[2024-11-01 19:45] LABS: Hematocrit 34.0 % (40-54); Hemoglobin 11.6 g/dL (13.0-16.5); Immature Granulocytes Count 0.010 X10^3/uL (0.0-0.0); Mean Corp Hgb Conc 34.1 g/dL (32-36); Mean Corpuscular Volume 90.4 fL (80-94); Mean Platelet Vol. 12.4 fl (6.2-12.0); NRBC Flagged by Analyzer 0 % (0-5); POSITIVE DIFFERENTIAL YES; Platelet Count 146 K/mm3 (150-450); RBC Distribution Width CV 13.3 % (11.6-14.6); RBC Distribution Width SD 44.5 fl (35.1-43.9); Red Blood Count 3.76 M/mm3 (4.6-6.2); White Blood Count 4.2 K/mm3 (4.4-11.0)
--- NOTE | 2024-11-01 20:29 | EX.ED.DYSGE1 ---
HPI History of Present Illness Chief Complaint: Syncope Detail of Chief Complaint: Syncopal episode approximate 1 to 2 months ago and several episodes INCLUSION MANAGER Informant: patient and family (Daughter helps supplement history) Onset/Context/Timing Onset: Today Context: Sudden Onset Timing: Intermittent Quality: Unresponsiveness after sitting down with no postictal stage and HPI narrati Location: Home Current Severity: Gone Worsened by: Uncertain Relieved by: Not applicable Associated Symptoms Associated Symptoms: Postictal stage after 2nd and 3rd episode of stiffness Narrative Narrative: Patient is an 84-year-old male. He had a syncopal episode 1 to 2 months ago. Daughter relocated to [place] to keep an eye on him. He has a history of CLL, debility, hyperlipidemia, follicular lymphoma grade 1, edema of lower extremity, venous stasis, hyperlipidemia who has had multiple orthopedic procedures with total knee and hip arthroplasty. He presents after syncopal assault. He was sitting down. He became unresponsive. He awoke after 10 seconds of unresponsiveness. He was not confused. He had several episodes afterwards where the daughter states he got stiff. He was confused after those episodes. He has no known history of stroke or seizures. He denies headache. Denies double vision blurred vision loss of vision. No trouble with speech or swallowing. He denies neck pain or neck stiffness. He denies cardiac or respiratory symptoms. He denies GI symptoms. He denies urologic symptoms. There is no history of trauma. Prior similar symptoms: No Recent Illness/Hospitalization: No [facility] Medical History Loss of hearing Alcohol use Prostate disease Back pain Fall Intermittent lightheadedness Shortness of breath on exertion History of pain when walking Wears glasses Uses wheelchair Walker as ambulation aid History of leukemia Former smoker History of edema High cholesterol Leukopenia Neutropenia Glaucoma Arthritis B-cell lymphoma Basal cell carcinoma Non-Hodgkin lymphoma Home Medications ?Medication ?Instructions ?Recorded ?Last Taken ?Type finasteride 5 mg tablet 5 mg PO DAILY URINE 06/17/14 10/31/24 History rosuvastatin 20 mg tablet 20 mg PO QHS Cholesterol 03/28/21 10/31/24 History acetaminophen 500 mg tablet 1,000 mg PO DAILY Pain 11/08/21 Unknown History ascorbic acid (vitamin C) 1,000 mg 1 g PO DAILY 06/30/24 11/01/24 History capsule ergocalciferol (vitamin D2) 1,250 1,250 mcg PO QWEEK 06/30/24 Unknown History mcg (50,000 unit) capsule fenofibrate nanocrystallized 145 145 mg PO QDAY 06/30/24 10/31/24 History mg tablet saw palmetto 450 mg capsule 450 mg PO QODAY 06/30/24 10/31/24 History aspirin 325 mg capsule 325 mg PO DAILY 11/01/24 11/01/24 History cyanocobalamin (vitamin B-12) 1,000 mcg PO DAILY 11/01/24 10/31/24 History 1,000 mcg capsule Allergy/AdvReac Type Severity Reaction Status Date / Time No Known Allergies Allergy Verified 11/01/24 17:57 Family History Father Kidney disease Heart disease Surgical History History of transurethral resection of prostate History of hip replacement History of total left knee replacement (TKR) History of back surgery History of tonsillectomy History of local excision of skin lesion Social History household members: none Smoking Status: Former smoker alcohol intake: never substance use type: does not use ROS ROS ED Constitutional Constitutional ED: Denies chills, fever(s), subjective or sweats Eyes Eyes: Denies blurry vision or change in vision ENT ENT ED: Denies ear pain, rhinorrhea or sore throat Cardiovascular Cardiovascular: Denies chest pain, orthopnea, palpitations or racing heartbeat Respiratory/Chest Respiratory/Chest: Denies cough, dyspnea, dyspnea on exertion or orthopnea Gastrointestinal Gastrointestinal: Denies abdominal pain, diarrhea or vomiting Genitourinary Genitourinary ED: Denies dysuria, hematuria or urinary frequency Musculoskeletal Musculoskeletal: Denies arthralgias or myalgias Integumentary Denies rash Neurologic Neurologic: Denies headache(s) or paresthesias Psychiatric Psychiatric: Denies anxiety or depression Endocrine Endocrinology: Denies cold intolerance or heat intolerance Hematologic/Lymphatic Hematologic/Lymphatic: Reports systems reviewed and no addt'l complaints, except as documented EXAM Physical Exam Const Vital Signs: 11/01/24 17:55 11/01/24 18:03 11/01/24 18:54 Temperature 97.2 F L Temperature Source Oral Pulse Rate 75 66 Respiratory Rate 26 H 20 H Respiratory Effort Normal Non-Labored Respiratory Pattern Normal Blood Pressure 95/58 L 80/46 L Blood Pressure Mean 70 57 Pulse Ox 97 Oxygen Delivery Method Room Air Room Air 11/01/24 19:00 11/01/24 19:17 11/01/24 20:00 Temperature Temperature Source Pulse Rate 67 71 70 Respiratory Rate 16 22 H 16 Respiratory Effort Respiratory Pattern Blood Pressure 86/61 L 90/59 L 97/67 Blood Pressure Mean 69 69 77 Pulse Ox 100 98 100 Oxygen Delivery Method Room Air Room Air Room Air Positive well nourished and well developed Constitutional Narrative: He is hypotensive. General Appearance ED: well developed, NAD and pallor HEENT Reports dry mucous membranes Mouth ED: Yes dry mucous membranes Mouth: dry mucous membranes Eyes PERRL and EOMs intact bilaterally General Eye ED: Negative for pale conjunctiva or scleral icterus Neck no lymphadenopathy, supple and no JVD Resp normal respiratory effort and clear to auscultation bilaterally Cardio regular rate, regular rhythm, S1 normal heart sound, S2 normal heart sound and no murmurs GI normal to inspection, nondistended, normoactive bowel sounds, non-tender, non-distended and no masses; Negative for hepatosplenomegaly Back/Spine no CVA tenderness Extremity normal to inspection General Extremety ED: Yes edema General Extremity: edema Neuro oriented x3, CN's II-XII intact bilaterally and no sensory deficits noted Neuro Narrative: Awake but not alert. Sensorium / Orientation: Negative for alert Motor Exam: strength 5/5 throughout Psych Psych Narrative: Flat affect Skin skin turgor normal Skin Narrative: Discoloration right foot. Per daughter this is normal. General Skin Exam: pallor; Negative for elasticity normal or jaundice MDM MDM MDM Narrative Medical decision making narrative: Patient is hypotensive. Need to consider GI bleed, cardiac ischemia, vasovagal response, also need to consider seizure disorder. Will obtain CT of the head, EKG appropriate blood work. Will add a procalcitonin since this may have been a seizure. Lab Data Attestation: I reviewed the patient's lab results. Lab results narrative: CBC reveals anemia with normal indices. Electrolyte panel is remarkable for an elevated BUN to creatinine ratio of 32:1. Glucose is elevated 110 with normal CO2 anion gap. Procalcitonin is normal. Accidentally ordered procalcitonin when it should have been a prolactin level. However the CO2 anion gap were normal which would favor him not having seizure-like activity. Since he is hypotensive has had multiple episodes where he has passed out contacted hospitalist Dr. Reveles for admission to PCU for further workup. Labs: Laboratory Results - last 24 hr 11/01/24 11/01/24 18:27 18:28 WBC 4.2 L RBC 3.76 L Hgb 11.6 L Hct 34.0 L MCV 90.4 MCH 30.9 MCHC 34.1 RDW Std Deviation 44.5 H RDW Coeff of April 13.3 Plt Count 146 L MPV 12.4 H Immature Gran % (Auto) 0.200 Neut % (Auto) 73.1 H Lymph % (Auto) 11.1 L Mccone % (Auto) 13.2 H Eos % (Auto) 1.9 Baso % (Auto) 0.5 Absolute Neuts (auto) 3.1 Absolute Lymphs (auto) 0.47 L Nucleated RBC % 0 Sodium 139 Potassium 4.0 Chloride 105 Carbon Dioxide 22.6 Anion Gap 11 BUN 36 H Creatinine 1.14 Estim Creat Clear Calc 52.00 Est GFR (MDRD) Non-Af 63 BUN/Creatinine Ratio 31.7 H Glucose 110 H Calcium 9.3 Procalcitonin 0.10 Radiography Diagnostic Testing: Clinical Impression(s) from Imaging Studies Brain CT 11/01/24 18:35 IMPRESSION: No acute intracranial abnormality. Reading Location: [facility] CT was reviewed and report was read. Management Discussion w/another healthcare provider: Hospitalist Discharge Plan Triage Chief Complaint: Syncope ED Provider: Seferino Gautam Dx/Rx/DC Orders Clinical Impression: Syncope and collapse, Chronic lymphocytic leukemia in remission, Hyperlipidemia, Seizure-like activity, Acute hypotension Prescriptions: No Action ergocalciferol (vitamin D2) 1,250 mcg (50,000 unit) capsule 1,250 mcg PO QWEEK fenofibrate nanocrystallized 145 mg tablet 145 mg PO QDAY saw palmetto 450 mg capsule 450 mg PO QODAY Rx Instructions: give with food (meal/snack) ascorbic acid (vitamin C) 1,000 mg capsule 1 g PO DAILY finasteride 5 MG tablet 5 mg PO DAILY Patient Comments: Enlarged prostate (BPH) rosuvastatin 20 mg Tablet 20 mg PO QHS acetaminophen 500 mg tablet 1,000 mg PO DAILY cyanocobalamin (vitamin B-12) 1,000 mcg capsule 1,000 mcg PO DAILY aspirin 325 mg capsule 325 mg PO DAILY Primary Care Provider: Diana Ayala Referrals: Diana Ayala, [employer] [Primary Care Provider] - Print Language: Wallisian Disposition Disposition: Acute Care Hospital [facility]
--- NOTE | 2024-11-01 21:34 | PCM.HP.STD ---
HPI - General General Date of Admission: 11/01/24 Date of Service: 11/01/24 Chief Complaint: Syncopal episode HPI Narrative PRABHU BUCIO, is a 84 M who presents to the emergency room with chief complaint of syncopal episode. Patient has a significant past medical history of onset of syncopal episode approximately 2 months ago. He describes this starting with a strange sensation at the top of his head which was followed by imbalance where he went to the stand by a wall and then he found himself on the floor after falling unconscious. His daughter in fact moved from [place] to keep a closer eye on him after this started happening. Patient has significant past medical history of chronic lymphocytic leukemia, debility, hyperlipidemia, follicular lymphoma grade 1, edema of lower extremity, venous stasis, hyperlipidemia who has had multiple orthopedic procedures including total knee and hip arthroplasty. Earlier today he had a similar episode where he felt tingling on the top of his head and he went toward the chair noting that he would become possibly syncopal. He thought he was improving while sitting in the chair ,however,his family member noted him to be posturing with his head tilted back as he slid forward from his chair down toward the ground. He was noted to have some stiffness of his body with some mild tremor while this occurred and lasted about 10 seconds. He has been more fatigued than usual. No nausea, vomiting, diarrhea and he denies fevers or chills or chest pain or shortness of breath at present time. Patient's laboratory studies are fairly unremarkable with a white blood cell count of 4.2, hemoglobin 11.6, hematocrit 34, platelets 146, sodium 139, potassium 4.0, chloride 105, bicarb 22.6, BUN 36, creatinine 1.14, glucose [address] brain [address] scan. Patient will be admitted and continued cardiac monitoring overnight for observation and will order echocardiogram due to the nature of syncope. We discussed the possibility of this having been a seizure with the patient and agreed that this may need to be worked up as an outpatient with a consult to neurology. All were agreeable with this plan of care. Patient CODE STATUS discussed with patient and family members present and agreed full CODE STATUS at this time. [facility] Medical History Loss of hearing Alcohol use Prostate disease Back pain Fall Intermittent lightheadedness Shortness of breath on exertion History of pain when walking Wears glasses Uses wheelchair Walker as ambulation aid History of leukemia Former smoker History of edema High cholesterol Leukopenia Neutropenia Glaucoma Arthritis B-cell lymphoma Basal cell carcinoma Non-Hodgkin lymphoma Home Medications ?Medication ?Instructions ?Recorded ?Last Taken ?Type finasteride 5 mg tablet 5 mg PO DAILY URINE 06/17/14 10/31/24 History rosuvastatin 20 mg tablet 20 mg PO QHS Cholesterol 03/28/21 10/31/24 History acetaminophen 500 mg tablet 1,000 mg PO DAILY Pain 11/08/21 Unknown History ascorbic acid (vitamin C) 1,000 mg 1 g PO DAILY 06/30/24 11/01/24 History capsule ergocalciferol (vitamin D2) 1,250 1,250 mcg PO QWEEK 06/30/24 Unknown History mcg (50,000 unit) capsule fenofibrate nanocrystallized 145 145 mg PO QDAY 06/30/24 10/31/24 History mg tablet saw palmetto 450 mg capsule 450 mg PO QODAY 06/30/24 10/31/24 History aspirin 325 mg capsule 325 mg PO DAILY 11/01/24 11/01/24 History cyanocobalamin (vitamin B-12) 1,000 mcg PO DAILY 11/01/24 10/31/24 History 1,000 mcg capsule Allergy/AdvReac Type Severity Reaction Status Date / Time No Known Allergies Allergy Verified 11/01/24 17:57 Family History Father Kidney disease Heart disease Surgical History History of transurethral resection of prostate History of hip replacement History of total left knee replacement (TKR) History of back surgery History of tonsillectomy History of local excision of skin lesion Social History household members: none Smoking Status: Former smoker alcohol intake: never substance use type: does not use ROS Constitutional Constitutional: Denies chills or fever(s) Eyes Eyes: Denies blurry vision ENT HEENT: Denies abnormal hearing Cardiovascular Cardiovascular: Reports syncope; Denies chest pain Respiratory/Chest Respiratory/Chest: Denies cough Gastrointestinal Gastrointestinal: Denies abdominal pain Genitourinary Genitourinary: Denies dysuria Musculoskeletal Musculoskeletal: Denies back pain Integumentary Integumentary: Denies dry skin Neurologic Neurologic: Denies abnormal speech or confusion Psychiatric Psychiatric: Denies anxiety Vital Signs Vital Signs Vital Signs: 11/01/24 17:55 11/01/24 18:03 11/01/24 18:54 Temperature 97.2 F L Temperature Source Oral Pulse Rate 75 66 Respiratory Rate 26 H 20 H Respiratory Effort Normal Non-Labored Respiratory Pattern Normal Blood Pressure 95/58 L 80/46 L Blood Pressure Mean 70 57 Pulse Ox 97 Oxygen Delivery Method Room Air Room Air 11/01/24 19:00 11/01/24 19:17 11/01/24 20:00 Temperature Temperature Source Pulse Rate 67 71 70 Respiratory Rate 16 22 H 16 Respiratory Effort Respiratory Pattern Blood Pressure 86/61 L 90/59 L 97/67 Blood Pressure Mean 69 69 77 Pulse Ox 100 98 100 Oxygen Delivery Method Room Air Room Air Room Air 11/01/24 20:57 11/01/24 21:00 Temperature 97.9 F Temperature Source Pulse Rate 72 75 Respiratory Rate 14 18 Respiratory Effort Respiratory Pattern Blood Pressure 104/59 L 109/62 Blood Pressure Mean 74 77 Pulse Ox 96 97 Oxygen Delivery Method Room Air Weight Weight: 203 lb 4.259 oz Body Mass Index (BMI) 27.6 Physical Exam Const alert, oriented x3 and no apparent distress General Appearance: cooperative and well developed HEENT normocephalic and head/scalp atraumatic Eyes PERRL and EOMs intact bilaterally Neck no lymphadenopathy, supple and no JVD Lymph Lymphatic: no lymphadenopathy noted Resp normal respiratory effort, normal air movement and clear to auscultation bilaterally Cardio regular rate, regular rhythm, S1 normal heart sound and S2 normal heart sound GI normal to inspection, nondistended, normoactive bowel sounds Extremity no calf tenderness Skin General Skin Exam: no breakdown Neuro CN's II-XII intact bilaterally, no focal motor deficits and no sensory deficits noted Speech: speech normal Motor Exam: strength 5/5 throughout Psych thought process normal, cooperative and affect normal Appearance: appropriate Results Lab / Micro Data 11/01/24 18:27 11/01/24 18:28 Labs: Laboratory Results - last 24 hr 11/01/24 18:27: WBC 4.2 L, RBC 3.76 L, Hgb 11.6 L, Hct 34.0 L, MCV 90.4, MCH 30.9, MCHC 34.1, RDW Std Deviation 44.5 H, RDW Coeff of April 13.3, Plt Count 146 L, MPV 12.4 H, Immature Gran % (Auto) 0.200, Neut % (Auto) 73.1 H, Lymph % (Auto) 11.1 L, [place] % (Auto) 13.2 H, Eos % (Auto) 1.9, Baso % (Auto) 0.5, Absolute Neuts (auto) 3.1, Absolute Lymphs (auto) 0.47 L, Nucleated RBC % 0 11/01/24 18:28: Sodium 139, Potassium 4.0, Chloride 105, Carbon Dioxide 22.6, Anion Gap 11, BUN 36 H, Creatinine 1.14, Estim Creat Clear Calc 52.00, Est GFR (MDRD) Non-Af 63, BUN/Creatinine Ratio 31.7 H, Glucose 110 H, Calcium 9.3, Procalcitonin 0.10 Imaging Radiology Impression Brain CT 11/01/24 18:35 IMPRESSION: No acute intracranial abnormality. Reading Location: [facility] Assessment & Plan Assessment/Plan (1) Acute hypotension: (2) Seizure-like activity: (3) Syncope and collapse: (4) Chronic lymphocytic leukemia in remission: (5) Hyperlipidemia: PLAN: Plan 1 syncope and collapse?admit patient to progressive care unit for observation, continue cardiac monitoring overnight and order echocardiogram in the morning. Repeat CBC BMP in the a.m. will have PT evaluate for balance. 2. Seizure-like activity?continue monitoring for any further episodes while under our observation and will plan for outpatient consult to neurology for further evaluation and possible consideration for anti?epileptic medication 3. Hyperlipidemia?continue statin medication 4. Hypertension?monitor blood pressure and address accordingly patient is currently normotensive 5. DVT prophylaxis?low molecular weight heparin 6. CODE STATUS?full code discussed with family and patient Charges/Coding Visit Charges OBSV E&M: 15771 Observ/hosp same date L2
[2024-11-02 04:47] VITALS: BP 99/61; PULSE 71; RESP 16; TEMP 36.6; O2SAT 95
[2024-11-02 05:50] LABS: Hematocrit 34.5 % (40-54); Hemoglobin 11.4 g/dL (13.0-16.5); Immature Granulocytes Count 0.030 X10^3/uL (0.0-0.0); Mean Corp Hgb Conc 33.0 g/dL (32-36); Mean Corpuscular Volume 91.3 fL (80-94); Mean Platelet Vol. 12.2 fl (6.2-12.0); NRBC Flagged by Analyzer 0 % (0-5); Platelet Count 144 K/mm3 (150-450); RBC Distribution Width CV 13.3 % (11.6-14.6); RBC Distribution Width SD 44.4 fl (35.1-43.9); Red Blood Count 3.78 M/mm3 (4.6-6.2); White Blood Count 4.0 K/mm3 (4.4-11.0)
--- NOTE | 2024-11-02 05:55 | ECHOD_ITS ---
Reason For Study Reason For Study: SYNCOPE Procedure This was a 2D Doppler, Color Flow transthoracic echocardiogram. The study was technically difficult. Exam performed in department. Left Ventricle Normal LV size. Mild concentric left ventricular hypertrophy. The left ventricular ejection fraction is 65 %. Stage 1 diastolic dysfunction. No regional wall motion abnormalities noted. Right Ventricle Normal RV size. Normal systolic function. Atria The left and right atria are normal. Mitral Valve The mitral valve is structurally normal. No prolapse or stenosis seen. Tricuspid Valve Normal tricuspid valve. Trivial tricuspid valve insufficiency. Pulmonary artery systolic pressure is 34 mmHg. Aortic Valve Trisinus/trileaflet aortic valve. Pulmonic Valve Normal pulmonic valve. Great Vessels Normal sized aortic root. Pericardium/Pleural No pericardial effusion. MMode/2D Measurements & Calculations LVIDd: 5.2 cm IVSd: 1.1 cm LVOT diam: 2.2 cm LVIDs: 3.0 cm LVPWd: 1.1 cm LVOT area: 3.9 cm2 RVDd: 3.4 cm FS: 41.2 % asc Aorta Diam: 3.7 cm LAV(MOD-bp): 36.9 ml LVAd ap4: 27.8 cm2 LAV(MOD-bp) Indexed: 17.5 ml/m2 LVLd ap4: 7.8 cm LAV(MOD-sp2): 39.6 ml EDV(MOD-sp4): 79.3 ml LAV(MOD-sp4): 32.3 ml EDV(sp4-el): 84.8 ml LVAs ap4: 12.7 cm2 LVLs ap4: 6.0 cm ESV(MOD-sp4): 23.9 ml ESV(sp4-el): 22.5 ml EF(MOD-sp4): 69.8 % EF(sp4-el): 73.4 % LVAd ap2: 19.0 cm2 SV(MOD-sp4): 55.4 ml SV(MOD-sp2): 30.1 ml LVLd ap2: 6.8 cm SI(MOD-sp4): 26.3 ml/m2 SI(MOD-sp2): 14.3 ml/m2 EDV(MOD-sp2): 43.4 ml EDV(sp2-el): 44.8 ml LVAs ap2: 9.3 cm2 LVLs ap2: 5.5 cm ESV(MOD-sp2): 13.3 ml ESV(sp2-el): 13.3 ml EF(MOD-sp2): 69.4 % SV(sp4-el): 62.2 ml Ao sinus diam: 4.[address] Junction: 3.5 cm LA dimension(2D): 2.9 cm LA A4 area: 14.9 cm2 RA A4 area: 14.0 cm2 TAPSE: 2.3 cm Time Measurements MV dec time: 0.24 sec Doppler Measurements & Calculations MV E max fredy: 59.0 cm/sec Lat Peak E' Fredy: 9.8 cm/sec Med Peak E' Fredy: 9.8 cm/sec MV A max fredy: 79.1 cm/sec E/E' lat: 6.0 E/E' med: 6.0 MV E/A: 0.75 MV dec slope: 247.9 cm/sec2 Ao V2 max: 151.9 cm/sec LV V1 max: 126.5 cm/sec Ao max P.2 mmHg LV V1 max P.4 mmHg Ao V2 mean: 93.2 cm/sec LV V1 mean P.6 mmHg Ao mean P.2 mmHg LV V1 mean: 88.6 cm/sec Ao V2 VTI: 27.1 cm LV V1 VTI: 25.5 cm AV (velocity ratio): 0.94 TARA(I,D): 3.6 cm2 TARA(V,D): 3.2 cm2 SV(LVOT): 99.0 ml PA V2 max: 110.2 cm/sec TR max fredy: 279.9 cm/sec TR max P.3 mmHg ECHO/Echo Complete Interpretation Summary The left ventricular ejection fraction is 65 %. Stage 1 diastolic dysfunction. Structually normal valves. Ordering Physician: Leoncio Reveles Performed By: Colleen Mari RDCS
[2024-11-02 06:30] LABS: Anion Gap 13 (5-15); BUN 32 mg/dL (4-19); BUN/Creat Ratio 26.9 RATIO (10-20); Calcium,Total 9.8 mg/dL (7.6-11.0); Carbon Dioxide 23.2 mmol/L (21.0-32.0); Chloride 105 mmol/L (98-108); Estimated Creatinine Clearance 49.81 ml/min (50-250); Glucose 83 mg/dL (70-99); Potassium 4.1 mmol/L (3.3-5.1)
[2024-11-02 08:04] VITALS: O2SAT 96
--- NOTE | 2024-11-02 08:34 | PN.HOSP_ITS ---
Reason for Visit Chief Complaint: Syncopal episode Subjective Subjective Feels well. Patient said that he has been having numerous episodes where he just feels unwell and has to sit down. Trigger happens when he stands up it is not every day. Objective Data Objective Data Vital Signs: Vital Signs Temp Pulse Resp BP Pulse Ox O2 Del Method 36.6 C 71 16 99/61 96 Room Air 11/02/24 04:47 11/02/24 04:47 11/02/24 04:47 11/02/24 04:47 11/02/24 08:04 11/02/24 08:04 Oxygen Delivery Method Room Air Weight: 88.451 kg Body Mass Index (BMI) 26.4 Intake & Output: Intake and Output for Last 24 Hours 10/31/24 11/01/24 11/02/24 23:59 23:59 23:59 Intake Total 500 / 500 Output Total 750 / 750 Balance 500 / 300 -750 / -750 Lab / Micro Data 11/02/24 05:05 11/02/24 05:05 Labs: Laboratory Results - last 24 hr 11/01/24 18:27: WBC 4.2 L, RBC 3.76 L, Hgb 11.6 L, Hct 34.0 L, MCV 90.4, MCH 30.9, MCHC 34.1, RDW Std Deviation 44.5 H, RDW Coeff of April 13.3, Plt Count 146 L, MPV 12.4 H, Immature Gran % (Auto) 0.200, Neut % (Auto) 73.1 H, Lymph % (Auto) 11.1 L, Jefferson % (Auto) 13.2 H, Eos % (Auto) 1.9, Baso % (Auto) 0.5, Absolute Neuts (auto) 3.1, Absolute Lymphs (auto) 0.47 L, Nucleated RBC % 0 11/01/24 18:28: Sodium 139, Potassium 4.0, Chloride 105, Carbon Dioxide 22.6, Anion Gap 11, BUN 36 H, Creatinine 1.14, Estim Creat Clear Calc 52.00, Est GFR (MDRD) Non-Af 63, BUN/Creatinine Ratio 31.7 H, Glucose 110 H, Calcium 9.3, Procalcitonin 0.10 11/02/24 05:05: WBC 4.0 L, RBC 3.78 L, Hgb 11.4 L, Hct 34.5 L, MCV 91.3, MCH 30.2, MCHC 33.0, RDW Std Deviation 44.4 H, RDW Coeff of April 13.3, Plt Count 144 L, MPV 12.2 H, Immature Gran % (Auto) 0.700, Neut % (Auto) 59.1, Lymph % (Auto) 23.7, Jefferson % (Auto) 14.5 H, Eos % (Auto) 1.5, Baso % (Auto) 0.5, Absolute Neuts (auto) 2.4, Absolute Lymphs (auto) 0.95, Nucleated RBC % 0, Sodium 141, Potassium 4.1, Chloride 105, Carbon Dioxide 23.2, Anion Gap 13, BUN 32 H, Creatinine 1.19, Estim Creat Clear Calc 49.81 L, Est GFR (MDRD) Non-Af 60, B UN/Creatinine Ratio 26.9 H, Glucose 83, Calcium 9.8 Radiography Diagnostic Testing: Radiology Impression Brain CT 11/01/24 18:35 IMPRESSION: No acute intracranial abnormality. Reading Location: [facility] Physical Exam Const alert and no apparent distress HEENT head/scalp atraumatic and moist oral mucous membranes Resp normal respiratory effort, no retractions, no use of accessory muscles and clear to auscultation bilaterally Cardio regular rate, regular rhythm, S1 normal heart sound and S2 normal heart sound GI normal to inspection, nondistended, normoactive bowel sounds, soft to palpation, non-tender and non-distended Extremity normal to inspection and full ROM Neuro Sensorium / Orientation: awake and alert Assessment & Plan Assessment/Plan (1) Acute hypotension: (2) Seizure-like activity: (3) Syncope and collapse: PLAN: Plan unresponsiveness: * syncope v seizure, favor the syncope * head CT negative * check MRI brain, EEG. Echo shows an EF of 65%. * seizure precautions. Chronic medical conditions: * Hyperlipidemia?continue statin medication * Hypertension?monitor blood pressure and address accordingly patient is currently normotensive DVT prophylaxis?low molecular weight heparin Charges/Coding Visit Charges Inpatient E&M: 92535 Subs Hosp L2
--- NOTE | 2024-11-02 08:37 | MRI_ITS ---
PROCEDURE: BRAIN WITHOUT CONTRAST 11/02/2024 REASON FOR EXAM: UNRESPONSIVENESS TECHNIQUE: Procedure Code: MRIBR Modality: MR Procedure: BRAIN WITHOUT CONTRAST Multiplanar and multisequence images were obtained. COMPARISON: 11/01/2024. FINDINGS: Moderate global parenchymal atrophy. Mild chronic microvascular ischemia. No evidence of acute hemorrhage or infarction. No extra-axial blood or fluid collections. The paranasal sinuses and mastoid air cells are clear. The calvarial vault and skull base are intact. MRI/Brain without Contrast IMPRESSION: No acute intracranial abnormality. Reading Location: [id number]
[2024-11-02 09:00] VITALS: BP 114/71; PULSE 93; RESP 18; TEMP 37.2; O2SAT 94
[2024-11-02 15:00] VITALS: BP 99/55; PULSE 67; RESP 18; TEMP 36.4; O2SAT 99
--- NOTE | 2024-11-02 15:40 | CASEMGMT ---
MARTINEZ Met with patient to complete MARTINEZ form. MARTINEZ form and its content were verbally explained and patient's questions were answered to the best of my ability.? Patient voiced understanding and signed MARTINEZ form.? Patient provided a copy of signed MARTINEZ form and original placed in patient's chart.? Patient had no further questions. Christen Kaur, Discharge Planning Asst
[2024-11-02 22:08] VITALS: BP 114/80; PULSE 65; RESP 16; TEMP 36.4; O2SAT 96
[2024-11-02] MEDS: 0.9% Saline Lock 10 ML Syringe IV (22:11)
[2024-11-03] VITALS (7 sets, daily range): BP systolic 93–129; BP diastolic 58–82; PULSE 66–85; RESP 14–18; TEMP 36.4–36.6; O2SAT 94–98
--- NOTE | 2024-11-03 08:08 | PN.HOSP_ITS ---
Reason for Visit Chief Complaint: Syncopal episode Subjective Subjective Feeling well. Objective Data Objective Data Vital Signs: Vital Signs Temp Pulse Resp BP Pulse Ox O2 Del Method 36.4 C L 71 16 110/59 L 95 Room Air 11/03/24 03:49 11/03/24 05:30 11/03/24 03:49 11/03/24 05:30 11/03/24 03:49 11/03/24 03:50 Oxygen Delivery Method Room Air Weight: 88.451 kg Body Mass Index (BMI) 26.4 Intake & Output: Intake and Output for Last 24 Hours 11/01/24 11/02/24 11/03/24 23:59 23:59 23:59 Intake Total 500 / 500 240 / 240 Output Total 750 / 750 Balance 500 / 300 -510 / -510 Lab / Micro Data 11/02/24 05:05 11/02/24 05:05 Radiography Diagnostic Testing: Radiology Impression Echocardiogram 11/02/24 05:55 Interpretation Summary The left ventricular ejection fraction is 65 %. Stage 1 diastolic dysfunction. Structually normal valves. Ordering Physician: Leoncio Reveles Performed By: Colleen Mari GIOVANNA Brain MRI 11/02/24 08:37 IMPRESSION: No acute intracranial abnormality. Reading Location: [address] Physical Exam Const alert and no apparent distress HEENT head/scalp atraumatic and moist oral mucous membranes Resp normal respiratory effort, no retractions, no use of accessory muscles and clear to auscultation bilaterally Cardio regular rate, regular rhythm, S1 normal heart sound and S2 normal heart sound GI normal to inspection, nondistended, normoactive bowel sounds, soft to palpation and non-tender Neuro Sensorium / Orientation: awake and alert Assessment & Plan Assessment/Plan (1) Acute hypotension: (2) Seizure-like activity: (3) Syncope and collapse: PLAN: Plan unresponsiveness: * sangeetaley 2/2 vasovagal syncope v seizure, favor syncope * head CT negative * MRI brain negative, EEG. Echo shows an EF of 65%. * seizure precautions. * orthostats negative (though did drop w sitting, but up with standing) * advised patient to get up slowly when standing up Chronic medical conditions: * Hyperlipidemia?continue statin medication * Hypertension?monitor blood pressure and address accordingly patient is currently normotensive DVT prophylaxis?low molecular weight heparin
--- NOTE | 2024-11-03 11:12 | CASEMGMT ---
Social Work SW received referral from family with concerns for home situation. SW's Amelie and Tea met with pt in pt's room. No family present in the room at this time. SW introduced self and role of SW and pt is agreeable to meet with SW. Pt states that his second in 2009 and pt had been living alone since then and that recently, pt is unable to state time frame, his daughter from his first marriage and her mother moved from [place] and into pt's home. Pt states he opened his home to his dgt Ann-Marie and told her she and her mother are welcome to stay with him as long as they want. Pt reports Ann-Marie assists with cooking, cleaning and transportation and that Ann-Marie is a lot of help. Pt states he was not eating well prior to Ann-Marie coming and had lost 27 pounds. Pt indicates that he is eating better now. Pt discussed medical issues and that he has been having a funny feeling in his head with some possible visual hallucinations. Pt states he thinks this started before his dgt Ann-Marie arrived (pt unable to say for sure) but is thankful that Ann-Marie is there as she prevented him from falling twice during these episodes. Prior to Ann-Marie's arrival, pt's two step daughters assisted as needed and pt confirms a good relationship with them. SW inquired about pt safety in the home. PT denies any concerns with physical abuse, verbal abuse or financial abuse. Pt firmly stating he feels safe at home and with Ann-Marie and her mother in his home. Pt denies all safety concerns. SW inquired about financial assistance at home. Pt states that Ann-Marie writes the checks to pay bills and pt signs them. Pt states he has met with an assistant district attorney who has made recommendations for finances and adding dgt Ann-Marie to accounts. SW inquired if Ann-Marie, step dgts or others were using pt's finances for their own gain and not for the good of the pt. Pt denies all concerns with this and is able to state happiness with current arrangements of dgt assisting him with finances and other functional needs. Pt plans to return home with dgt Ann-Marie to assist at time of discharge. SW will remain available should needs arise. CHLOE Burgos
--- NOTE | 2024-11-03 11:42 | DS.PCM_ITS ---
Providers Date of Admission: 11/01/24 Primary Care Physician: Diana Ayala, HORTICULTURE SUPERVISOR-C Reason For Visit: SYNCOPAL EPISODE Diagnosis Discharge Diagnosis (1) Acute hypotension: Status: Acute Code(s): I95.9 - Hypotension, unspecified (2) Seizure-like activity: Status: Acute Code(s): R56.9 - Unspecified convulsions (3) Syncope and collapse: Status: Acute Code(s): R55 - Syncope and collapse Plan unresponsiveness: * likley 2/2 vasovagal syncope v seizure, favor syncope * head CT negative * MRI brain negative, EEG. Echo shows an EF of 65%. * seizure precautions. * orthostats negative (though did drop w sitting, but up with standing) * advised patient to get up slowly when standing up Chronic medical conditions: * Hyperlipidemia?continue statin medication * Hypertension?monitor blood pressure and address accordingly patient is currently normotensive DVT prophylaxis?low molecular weight heparin Medications at Discharge Home Medications finasteride 5 mg tablet 5 mg PO DAILY URINE 06/17/14 rosuvastatin 20 mg tablet 20 mg PO QHS Cholesterol 03/28/21 acetaminophen 500 mg tablet 1,000 mg PO DAILY Pain 11/08/21 ascorbic acid (vitamin C) 1,000 mg capsule 1 g PO DAILY 06/30/24 ergocalciferol (vitamin D2) 1,250 mcg (50,000 unit) capsule 1,250 mcg PO QWEEK 06/30/24 fenofibrate nanocrystallized 145 mg tablet 145 mg PO QDAY 06/30/24 saw palmetto 450 mg capsule 450 mg PO QODAY 06/30/24 aspirin 325 mg capsule 325 mg PO DAILY 11/01/24 cyanocobalamin (vitamin B-12) 1,000 mcg capsule 1,000 mcg PO DAILY 11/01/24 Hospital Course Operations None Procedures 2-D Echocardiogram Summary of Care Provided Minutes Spent on Discharge: 32 Hospital Course: Patient presents with near syncopal episodes. He underwent a workup with echo, MRI, CT head and EEG if they were all negative. Orthostatic vital signs were checked which were also negative though did drop when he sat up when he stood up actually went up. May be vasovagal but he has not manifested any other symptoms this has been here. Patient advised to get up slowly when he gets up Weight / BMI Weight Weight: 88.451 kg Body Mass Index (BMI) 26.4 ABG / Lab / Microbiology Data 11/02/24 05:05 11/02/24 05:05 Radiography Diagnostic Testing: Radiology Impression Echocardiogram 11/02/24 05:55 Interpretation Summary The left ventricular ejection fraction is 65 %. Stage 1 diastolic dysfunction. Structually normal valves. Ordering Physician: Leoncio Reveles Performed By: Colleen Mari RDCS Brain MRI 11/02/24 08:37 IMPRESSION: No acute intracranial abnormality. Reading Location: [address] D/C Instructions DC O2, CPAP, BIPAP Needs Home O2 Discharge instructions: No Meaningful Use Info Meaningful Use Meaningful Use Diagnoses (Choose all that apply): None applicable Discharge Plan Admission Admit Date/Time: 11/01/24 21:50 Primary Reason for Your Visit: syncope Attending Provider: Elbert Wong Primary Care Provider: Diana Ayala Consulting Providers: Leoncio Reveles; Ramon Leonardo; Juana De La Cruz; Jannie Guido; Nickolas Wray; Diony Payne; Benny Benavides; CIRILO LYNN; Pao Stanton; Roula Duke; Harry Rose; Leny Weinberg Instructions Additional Instructions / Restrictions: Get up slowly when standing up. If you feel dizzy/unsteady, sit back down. Discharge Orders/Prescriptions Prescriptions: Continued ergocalciferol (vitamin D2) 1,250 mcg (50,000 unit) capsule 1,250 mcg PO QWEEK Patient Comments: per daughter pt takes it Friday fenofibrate nanocrystallized 145 mg tablet 145 mg PO QDAY saw palmetto 450 mg capsule 450 mg PO QODAY Rx Instructions: give with food (meal/snack) ascorbic acid (vitamin C) 1,000 mg capsule 1 g PO DAILY finasteride 5 MG tablet 5 mg PO DAILY Patient Comments: Enlarged prostate (BPH) rosuvastatin 20 mg Tablet 20 mg PO QHS acetaminophen 500 mg tablet 1,000 mg PO DAILY cyanocobalamin (vitamin B-12) 1,000 mcg capsule 1,000 mcg PO DAILY aspirin 325 mg capsule 325 mg PO DAILY Referrals / Follow Up: Diana Ayala NP-C [Primary Care Provider] - Within 2 Weeks Disposition Disposition (needs filled in before D/C Order can be placed): Home Health Service Charges/Coding Visit Charges Inpatient E&M: 06146 Disch Hosp
--- NOTE | 2024-11-03 11:54 | PHA.DC.MR.R ---
Pharmacy CT Med Reconciliation Pharmacy Service has performed discharge medication reconciliation for this patient. The patient's discharge medication list was reviewed for discrepancies and discrepancies were resolved. Medications at Discharge Home Medications finasteride 5 mg tablet 5 mg PO DAILY URINE 06/17/14 rosuvastatin 20 mg tablet 20 mg PO QHS Cholesterol 03/28/21 acetaminophen 500 mg tablet 1,000 mg PO DAILY Pain 11/08/21 ascorbic acid (vitamin C) 1,000 mg capsule 1 g PO DAILY 06/30/24 ergocalciferol (vitamin D2) 1,250 mcg (50,000 unit) capsule 1,250 mcg PO QWEEK 06/30/24 fenofibrate nanocrystallized 145 mg tablet 145 mg PO QDAY 06/30/24 saw palmetto 450 mg capsule 450 mg PO QODAY 06/30/24 aspirin 325 mg capsule 325 mg PO DAILY 11/01/24 cyanocobalamin (vitamin B-12) 1,000 mcg capsule 1,000 mcg PO DAILY 11/01/24
--- NOTE | 2024-11-03 12:28 | CASEMGMT ---
Discharge Planning A list of?HH providers including quality and resource use data and consistent with the patient's preferred geographic region, medical needs, and insurance network was created in [facility] Guide.? This list was provided to the CM. Christen Kaur, Discharge Planning Asst.
--- NOTE | 2024-11-03 13:39 | CASEMGMT ---
Patient has order for discharge. CHRISTINA LESTER in to discuss needs at discharge, therapy recommending additional therapy at discharge. Patient states he still likes to shop and run errands and would like outpatient [facility] and prefers to have [facility] call patient to schedule appt. Patient denies further needs or help at discharge. CHRISTINA LESTER updated hospitalist, script received, and referral faxed to [facility] with request to call patient. CHRISTINA LESTER updated discharge plan.
--- NOTE | 2024-11-03 15:50 | CASEMGMT ---
Social Work SW met with pt, pt dgts and granddgt to discuss discharge plan. Per physician, family was inquiring about possible SNF. SW reviewed therapy notes with family and explained that pt does not meet qualifications for SNF stay under insurance at this time. SW reviewed options of HHC vs Outpt Therapy. After discussion with pt, pt and family would like to continue with original [facility]. Physician notified. CHLOE Jensne
--- NOTE | 2024-11-03 16:10 | CT_ITS ---
PROCEDURE: CTA NECK W/WO CONTRAST 11/03/2024 REASON FOR EXAM: SYNCOPE TECHNIQUE: Procedure Code: [id number] Modality: CT Procedure: CTA NECK W/WO CONTRAST Multiplanar Sagittal and Coronal images were obtained. 3D reconstructions CONTRAST: Isovue 370 VOLUME: 100 mL One or more dose reduction techniques were used (e.g., Automated exposure control, adjustment of the mA and/or kV according to patient size, use of iterative reconstruction technique). RADIATION DOSE SUMMARY: CTDlvol: 51 mGy DLP: 610 mGycm FINDINGS: Masslike opacity with spiculation seen adjacent to the mediastinum on the left. Consider further evaluation with chest CT. No prior chest imaging available to me at this institution. 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 The cervical vertebral arteries are normal in caliber without dissection, stenosis or occlusion. No left or right common carotid stenosis is seen. Normal carotid bifurcations. No carotid stenosis. No carotid dissection. No soft tissue masses are seen in the neck. Specifically, no cervical lymphadenopathy. 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 If this has not alr rashida been evaluated, recommend CT chest with IV contrast. Negative CTA of the neck Reading [facility]
[2024-11-04 05:44] VITALS: BP 108/53; PULSE 72; RESP 18; TEMP 36.8; O2SAT 96
[2024-11-04 06:59] VITALS: O2SAT 95
--- NOTE | 2024-11-04 08:30 | PN.HOSP_ITS ---
Reason for Visit Chief Complaint: Syncopal episode Objective Data Objective Data Vital Signs: Vital Signs Temp Pulse Resp BP Pulse Ox O2 Del Method 36.8 C 72 18 108/53 L 96 Room Air 11/04/24 05:44 11/04/24 05:44 11/04/24 05:44 11/04/24 05:44 11/04/24 05:44 11/04/24 05:44 Oxygen Delivery Method Room Air Weight: 88.451 kg Body Mass Index (BMI) 26.4 Intake & Output: Intake and Output for Last 24 Hours 11/02/24 11/03/24 11/04/24 23:59 23:59 23:59 Intake Total 240 / 240 480 / 480 Output Total 750 / 750 Balance -510 / -510 480 / 480 Medical Nutrition Assessment Dietitian: Malnutrition Criteria Met Start: 11/03/24 11:59 Freq: Status: Active Protocol: Document 11/03/24 12:00 SB (Rec: 11/03/24 12:00 SB [id number]) Nutrition Malnutrition Evidence of Yes Malnutrition Exists Malnutrition (severe Acute Illness/Injury ): Evidenced By Suboptimal Energy Intake (Severe),Weight Loss (Severe) Intake Problem None at this time Status Inactive Problem Clinical Problem Acute Disease or Injury Related Malnutrition Etiology severe related to inadequate oral intake Signs/Symptoms as evidenced by PO meeting <50% of estimated nutrition needs x 1 month and 8% unintentional weight loss x 2 months. Status Active Problem Recommendation Dietitian Continue regular diet. Recommendations/ Will order 240ml EPHP with lunch and dinner. Changes Will monitor weight trends. 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 If this has not already been evaluated, recommend CT chest with IV contrast. Negative CTA of the neck Reading [facility] Assessment & Plan Assessment/Plan (1) Acute hypotension: (2) Seizure-like activity: (3) Syncope and collapse: PLAN: Plan unresponsiveness: * likley 2/2 vasovagal syncope v seizure, favor syncope * head CT negative * MRI brain negative, EEG. Echo shows an EF of 65%. * seizure precautions. 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 Encasing the left common carotid artery and left subclavian artery. Both are patent. Imaging from 2023 from the CTA of the head neck showed that the was a mass in the left upper lobe at that time but was not commented on with that report. * Discussed with Dr. George, pulmonology. He recommends a CT of the chest with contrast and he will see the patient in consultation. Chronic medical conditions: * Hyperlipidemia?continue statin medication * Hypertension?monitor blood pressure and address accordingly patient is currently normotensive Dysphagia: * chronic. * ST eval. * was to have a MBSS as outpt Weakness * Had long discussion with the patient's daughter, stepdaughter and granddaughter 11/03. The offered further context that the patient has been declining over the past several months and around Radhika time had aspirated on a hot dog bun and was seeing speech therapy at that time. These got to the point where he is having difficulty holding his coffee cup. I explained that I do not think the carotids will show anything significant as he had a normal one April 2023. Will check CTA of neck. Additionally, will have ST see and evaluate. Monitor the patient overnight and potential discharge to home 11/04. DVT prophylaxis?low molecular weight heparin Updated patient's daughter.
--- NOTE | 2024-11-04 08:30 | PCM.PN.HOSP ---
Reason for Visit Chief Complaint: Syncopal episode Subjective Subjective Feeling well. Anxious to go home. Objective Data Objective Data Vital Signs: Vital Signs Temp Pulse Resp BP Pulse Ox O2 Del Method 36.8 C 72 18 108/53 L 96 Room Air 11/04/24 05:44 11/04/24 05:44 11/04/24 05:44 11/04/24 05:44 11/04/24 05:44 11/04/24 05:44 Oxygen Delivery Method Room Air Weight: 88.451 kg Body Mass Index (BMI) 26.4 Intake & Output: Intake and Output for Last 24 Hours 11/02/24 11/03/24 11/04/24 23:59 23:59 23:59 Intake Total 240 / 240 480 / 480 Output Total 750 / 750 Balance -510 / -510 480 / 480 Medical Nutrition Assessment Dietitian: Malnutrition Criteria Met Start: 11/03/24 11:59 Freq: Status: Active Protocol: Document 11/03/24 12:00 SB (Rec: 11/03/24 12:00 SB [id number]) Nutrition Malnutrition Evidence of Yes Malnutrition Exists Malnutrition (severe Acute Illness/Injury ): Evidenced By Suboptimal Energy Intake (Severe),Weight Loss (Severe) Intake Problem None at this time Status Inactive Problem Clinical Problem Acute Disease or Injury Related Malnutrition Etiology severe related to inadequate oral intake Signs/Symptoms as evidenced by PO meeting <50% of estimated nutrition needs x 1 month and 8% unintentional weight loss x 2 months. Status Active Problem Recommendation Dietitian Continue regular diet. Recommendations/ Will order 240ml EPHP with lunch and dinner. Changes Will monitor weight trends. 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 If this has not already been evaluated, recommend CT chest with IV contrast. Negative CTA of the neck [facility] Physical Exam Const alert and no apparent distress Constitutional Narrative: Up in chair. Hard of hearing. Afebrile. Pleasant. HEENT head/scalp atraumatic and moist oral mucous membranes Resp normal respiratory effort, no retractions and no use of accessory muscles Cardio regular rate, regular rhythm, S1 normal heart sound and S2 normal heart sound GI normal to inspection, nondistended, normoactive bowel sounds, soft to palpation and non-tender Assessment & Plan Assessment/Plan (1) Acute hypotension: (2) Seizure-like activity: (3) Syncope and collapse: PLAN: Plan unresponsiveness: jessi 2/2 vasovagal syncope v seizure, favor syncope head CT negative MRI brain negative, EEG. Echo shows an EF of 65%. seizure precautions. orthostats negative (though did drop w sitting, but up with standing) advised patient to get up slowly when standing up Lung mass: CTA of the neck showed extensive neoplasm in the left upper lobe and mediastinum. Encasing the left common carotid artery and left subclavian artery. Both are patent. Imaging from 2023 from the CTA of the head neck showed that the was a mass in the left upper lobe at that time but was not commented on with that report. Discussed with Dr. George, pulmonology. He recommends a CT of the chest with contrast and he will see the patient in consultation. 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 Enlarged left axillary lymph node. Discussed with Dr. Lynn of general surgery about the axillary lesion if it be amenable to biopsy but he saw an overlying vessel that would make it very difficult from a direct approach. Plan is for the patient to follow-up with Dr. George as outpatient and to have an EBUS biopsy. Discussed with the patient and family about having a biopsy and then following up with oncology based on the results of the biopsy for course of action. Chronic medical conditions: Hyperlipidemia?continue statin medication Hypertension?monitor blood pressure and address accordingly patient is currently normotensive Dysphagia: chronic. ST caridad. was to have a MBSS as outpt Weakness Had long discussion with the patient's daughter, stepdaughter and granddaughter 11/03. The offered further context that the patient has been declining over the past several months and around [place] time had aspirated on a hot dog bun and was seeing speech therapy at that time. These got to the point where he is having difficulty holding his coffee cup. I explained that I do not think the carotids will show anything significant as he had a normal one April 2023. Will check CTA of neck. Additionally, will have ST see and evaluate. Monitor the patient overnight and potential discharge to home 11/04. DVT prophylaxis?low molecular weight heparin Discussed with patient's 2 daughters at bedside. Greater than 50 minutes of which was spent discussing with pulmonary, general surgery, having a lengthy discussion with the patient and his 2 daughters at bedside. Charges/Coding Visit Charges Inpatient E&M: 62729 Subs Hosp L3
--- NOTE | 2024-11-04 08:41 | CT_ITS ---
PROCEDURE: CHEST WITH CONTRAST 11/04/2024 REASON FOR EXAM: LUNG MASS Seen on CT of the neck. TECHNIQUE: Procedure Code: CTCHW Modality: CT Procedure: CHEST WITH CONTRAST Coronal and Sagittal reconstruction series were provided. CONTRAST: Isovue-300 VOLUME: 100 mL One or more dose reduction techniques were used (e.g., Automated exposure control, adjustment of the mA and/or kV according to patient size, use of iterative reconstruction technique). RADIATION DOSE SUMMARY: CTDlvol: 15.7 mGy DLP: 574.43 mGycm COMPARISON: Prior CT scan of the neck dated November 03, 2024. FINDINGS: Hardware: EKG electrodes are seen. Lymph nodes: There is extensive soft tissue density in the left upper anterior mediastinum extending into the left para-aortic region as well as into the left hilar region. This is suggestive of extensive carcinoma with the mediastinal involvement. There is also evidence of enlarged left axillary lymph nodes. The largest node measures 3.2 cm. Heart and Vasculature: The heart is nonenlarged. Coronary artery calcification. The left parahilar mass encases branches of the left upper lobe pulmonary artery although they are patent. Lungs and Airways: There is evidence of scarring and bronchiectasis in the left lung apex. Pleura: Tiny left pleural effusion. Mild left basilar atelectasis. Upper Abdomen: Small gallstone seen within the dependent portion of the gallbladder lumen. Bones: Degenerative changes of the thoracic spine. CT/Chest WITH Contrast IMPRESSION: Coronary artery calcification (CAC) is is absent Extensive soft tissue density in the left upper anterior mediastinum extending into the left para-aortic region as well as into the left hilar region suggestive of primary lung cancer with mediastinal involv ement. Enlarged left axillary lymph nodes. Left apical scarring and bronchiectasis. Small left pleural effusion. Small gallstones. Reading Location: [facility]
--- NOTE | 2024-11-04 08:54 | CON.PCM.CC_ITS ---
Assessment & Plan Assessment/Plan (1) Chronic lymphocytic leukemia in remission: (2) Lung mass: PLAN: Plan RECOMMENDATIONS: 1. Obtain CT chest with contrast for further characterization of the lung mass and to determine extent of mediastinal infiltration. 2. Possible biopsy, inpatient versus outpatient, depending on results of CT imaging. IMPRESSIONS: 1. Lung mass Although the patient was initially admitted to the hospital with syncope, a CTA neck was obtained as part of his workup, which demonstrated a large left upper lobe lung mass with mediastinal infiltration. The lesion appeared to be encasing the left common carotid artery and left subclavian artery, both of which were patent. Looking back, it does appear that the lesion in question was actually present on CTA head and neck from April 2023. The patient has a very remote smoking history. 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 At this time, recommend obtaining a CT chest with contrast to further characterize the size of the lesion and extent of mediastinal infiltration. Ultimately, this lesion may require biopsy, which can either be accomplished either via percutaneous approach or EBUS, depending on the results of the CT imaging. Further recommendations will be forthcoming. This note was generated with [employer] dictation software. It may contain incorrect words, spelling, and punctuation that were not noted in checking the note before signing. HPI Consult Data Date of Consult: 11/04/24 HPI Narrative Reason for Consultation: Lung mass HPI Narrative: The patient is an 84-year-old male, with a history as outlined below, who presented to the emergency department on November 01 with complaints of syncope. 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 Ontiveros of oncology on an outpatient basis. He underwent a bone marrow biopsy on 09/27/2015, which demonstrated involvement by CLL, CD5 and CD23 positive. PET scan obtained 09/15/2015 demonstrated uptake in the left anterior chest, periclavicular location with a max SUV of 3 as well as subtle asymmetric increased glucose concentration observed in the right periauricular area generating an SUV of 1.6. The patient received 5 cycles obinutuzumab 10/16/2015-02/05/16. He had complete hematologic response in 02/2016. The patient has an approximate [id number] smoking history, having quit completely around 1969. In addition to his personal smoking history, the patient did grow up in a smoking household. He has never been evaluated by a substation operator automatic. He has never been identified as having any abnormal CT imaging of the chest. The patient was subsequently admitted to the hospital for further workup of his syncopal episodes. Surface echocardiogram demonstrated mild concentric LVH with an ejection fraction of 65% and stage I diastolic dysfunction. EEG was unremarkable. Brain MRI was unremarkable. A CTA neck was then completed November 03 and revealed what appeared to be a large mass in the left upper lobe with infiltration into the adjacent mediastinum. Looking back at prior imaging, the patient also had a head and neck CTA completed in April 2023 which also demonstrated evidence of the aforementioned lesion. COUNT INCLUDES THE [facility] Medical History Loss of hearing Alcohol use Prostate disease Back pain Fall Intermittent lightheadedness Shortness of breath on exertion History of pain when walking Wears glasses Uses wheelchair Walker as ambulation aid History of leukemia Former smoker History of edema High cholesterol Leukopenia Neutropenia Glaucoma Arthritis B-cell lymphoma Basal cell carcinoma Non-Hodgkin lymphoma Home Medications ?Medication ?Instructions ?Recorded ?Last Taken ?Type finasteride 5 mg tablet 5 mg PO DAILY URINE 06/17/14 10/31/24 History rosuvastatin 20 mg tablet 20 mg PO QHS Cholesterol 04/1710/31/24 History acetaminophen 500 mg tablet 1,000 mg PO DAILY Pain Unknown History ascorbic acid (vitamin C) 1,000 mg 1 g PO DAILY 11/01/24 History capsule ergocalciferol (vitamin D2) 1,250 1,250 mcg PO QWEEK 0 06/30/24 Unknown History mcg (50,000 unit) capsule fenofibrate nanocrystallized 145 145 mg PO QDAY 10/31/24 History mg tablet saw palmetto 450 mg capsule 450 mg PO QODAY 06/30/24 0 10/31/24 History aspirin 325 mg capsule 325 mg PO DAILY 11/01/2410/18 History cyanocobalamin (vitamin B-12) 1,000 mcg PO DAILY 11/0110/31/24 History 1,000 mcg capsule Allergy/AdvReac Type Severity Reaction Status Date / Time No Known Allergies Allergy Verified 11/01/24 17:57 Family History Father Kidney disease Heart disease Surgical History History of transurethral resection of prostate History of hip replacement History of total left knee replacement (TKR) History of back surgery History of tonsillectomy History of local excision of skin lesion Social History household members: none Smoking Status: Former smoker alcohol intake: never substance use type: does not use ROS ROS Narrative 10 systems were reviewed with pertinent positives as noted in the HPI above. Physical Exam Const alert, oriented x3 and no apparent distress Constitutional Narrative: Somewhat poor historian. Sitting in bedside recliner. HEENT normocephalic and head/scalp atraumatic General Ear: hearing grossly impaired Eyes PERRL, EOMs intact bilaterally and conjunctivae normal Neck supple General: trachea midline Chest inspection of chest normal Resp normal respiratory effort Auscultation: Negative for rales, rhonchi or wheezes Cardio regular rate and regular rhythm GI normal to inspection, nondistended, normoactive bowel sounds Extremity no clubbing, cyanosis or edema Skin no rashes or lesions noted Neuro CN's II-XII intact bilaterally, moves all extremities and no focal motor deficits Psych cooperative and affect normal Medical Records Data Medical Nutrition Assessment Dietitian: Malnutrition Criteria Met Start: 11/03/24 11:59 Freq: Status: Active Protocol: Document 11/03/24 12:00 (Rec: 11/03/24 12:00 [id number]) Nutrition Malnutrition Evidence of Yes Malnutrition Exists Malnutrition (severe Acute Illness/Injury ): Evidenced By Suboptimal Energy Intake (Severe),Weight Loss (Severe) Intake Problem None at this time Status Inactive Problem Clinical Problem Acute Disease or Injury Related Malnutrition Etiology severe related to inadequate oral intake Signs/Symptoms as evidenced by PO meeting <50% of estimated nutrition needs x 1 month and 8% unintentional weight loss x 2 months. Status Active Problem Recommendation Dietitian Continue regular diet. Recommendations/ Will order 240ml EPHP with lunch and dinner. Changes Will monitor weight trends. Lab / Micro Data 11/02/24 05:05 11/02/24 05:05 Imaging Radiology Impression Neck CTA 11/03/24 16:10 IMPRESSION: Extensive neoplasm in the left upper lobe and mediastinum. If this has not already been evaluated, recommend CT chest with IV contrast. Negative CTA of the neck Reading [facility] Charges/Coding Visit Charges Inpatient E&M: 96301 Init Hosp L2
[2024-11-04 10:55] VITALS: BP 110/54; PULSE 79; RESP 16; TEMP 36.6; O2SAT 97
--- NOTE | 2024-11-04 14:21 | SP.MBSS_ITS ---
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 Medical History: PMH: Loss of hearing, Alcohol use, Prostate disease, Back pain, Fall, Intermittent lightheadedness, Shortness of breath on exertion, History of pain when walking, Wears glasses, Uses wheelchair, Walker as ambulation aid, History of leukemia, Former smoker, History of edema, High cholesterol, Leukopenia, Neutropenia, Glaucoma, Arthritis, B-cell lymphoma, Basal cell carcinoma, Non- Hodgkin lymphoma. The patient presented to [facility] ED 11/01/2024 with chief complaint of syncopal episode. Hx of syncopal episodes beginning ~2 months ago. He described episodes, stating they begin w/ a strange sensation at the top of his head followed by imbalance, and he went to stand by a wall but then found himself on the floor after falling unconscious. where he went to the stand by a wall and then he found himself on the floor after falling unconscious. Daughter moved from out of state to keep a better eye on him. Day of admission, he had a similar episode where he felt tingling on the top of his head and he went toward the chair noting that he would become possibly syncopal. He thought he was improving while sitting in the chair, however, his family member noted him to be posturing with his head tilted back as he slid forward from his chair down toward the ground w/ some body stiffness and a mild tremor for 10 seconds. He was admitted for cardiac monitoring and an echocardiogram due to nature of syncope. He was also admitted for concerns for seizure and recommended OP neurology consult. He underwent a workup with echo, MRI, CT head and EEG if they were all negative per physician charting. ST was consulted during acute stay due to family concerns for swallowing difficulty. He reportedly had an aspiration w/ a hot dog bun while seeing ST around [place] time. He is planned for OP esophagram. No hx of ST at [facility] as OP per chart review. He did participate in BSE w/ ST in October of 2021 during an acute stay, but swallow function was deemed WNL at that time and he was not recommended for ST. During BSE 11/04/2024, pt reported intermittent episodes of pharyngeal and esophageal retention w/ difficulty breathing and regurgitation of food content and long, stringy, thick phlegm. Pt denies swallowing difficulty during current acute stay w/ any meals consumed here. During BSE, he had coughing and throat clearing after first swallow of liquids; otherwise, he appeared to tolerate trials. He was recommended for Regular textures / Thin liquids w/ plan for MBSS this afternoon to further assess concerns for aspiration, pharyngeal, and esophageal retention. Pt and family agreeable. Current Diet Ordered: Regular textures / Thin liquids Dentition: Natural Teeth and Missing Teeth Mental Status: WNL Respiratory Status: Oxygenating on Room Air Penetration-Aspiration Scale Penetration-Aspiration Scale: OBJECTIVE ASSESSMENT OF SWALLOW FUNCTION (QUANTITATIVE ? PER TRIAL): PENETRATION / ASPIRATION SCALE (SCHNEIDER): 1 = does not enter airway 2 = enters airway/above vocal folds/ejected 3 = enters airway/above vocal folds/not ejected 4 = enters airway/contacts vocal folds/ejected 5 = enters airway/contacts vocal folds/not ejected 6 = enters airway/below vocal folds/ejected 7 = enters airway/below vocal folds/not ejected despite effort 8 = enters airway/below vocal folds/no effort VIDEOFLOROSCOPIC SCALE SCORE (SCHNEIDER): Grade I = aspiration of material that has penetrated into the laryngeal vestibule, intact cough reflex Grade II = aspiration < 10 % of the bolus, intact cough reflex Grade III = aspiration of < 10 % of the bolus, reduced cough reflex or aspiration of > 10 % of the bolus, intact cough reflex Grade IV = aspiration of > 10 % of the bolus, reduced cough reflex Penetration-Aspiration Scale Score Thin Liquid via teaspoon: Result: 7= enters airways/below vocal folds/not ejected despite effort Comment: Cued cough and re-swallow = somewhat effective. Thin Liquid via teaspoon Effortful swallow: Result: 4= enters airway/contacts vocal folds/ejected Thin Liquid via large single sip: cup Effortful swallow: Result: 5= enters airways/contacts vocal folds/not ejected Thin Liquid via large single sip: cup Chin tuck: Result: 2= enter airway/above vocal folds/ejected [place] Thick Liquid via large single sip: cup: Result: 5= enters airways/contacts vocal folds/not ejected Comment: Reflexive throat clear cleared a majority of barium from the laryngeal vestibule. Pudding via teaspoon: Result: 4= enters airway/contacts vocal folds/ejected Comment: Reflexive throat clearing Esophageal screen - Mild retention in the upper esophagus. Significant retention of pudding in the lower and middle esophagus w/ retrograde flow. Thin Liquid via large single sip: cup Chin tuck Trial 2: Result: 3= enters airways/above vocal folds/not ejected Comment: Trace barium on anterior portion of the vocal folds Esophageal screen - Liquid wash effectively cleared a majority of pudding retention in the esophagus. 1/2 Cookie: Result: 2= enter airway/above vocal folds/ejected Thin Liquid via large single sip: cup Chin tuck Trial 3: Result: 5= enters airways/contacts vocal folds/not ejected Comment: Trace residues on vocal folds Thin Liquid via small single sip: cup Chin tuck: Result: 5= enters airways/contacts vocal folds/not ejected Comment: Cued throat clear and re-swallow = effective Thin Liquid via small single sip: cup Effortful swallow: Result: 5= enters airways/contacts vocal folds/not ejected Oral Phase Labial Seal: Escape progressing to mid-chin Tongue Control During Bolus Hold: Posterior escape of less than half of bolus Bolus Preparation/Mastication: Slow prolonged chewing/mashing with complete recollection Bolus Transport/Lingual Motion: Repetitive/disorganized tongue motion (and slowed) Oral Residue: Residue collection on oral structures Pharyngeal Phase Initiation of Pharyngeal Swallow: Bolus head in valleculae Soft Palate Elevation: Trace column of contrast/air between soft palate and pharyngeal wall Laryngeal Elevation: Partial superior movement thyroid cart/partial apprx aryt- epig petiole Anterior Hyoid Excursion: Partial anterior movement Epiglottic Movement: Partial inversion Laryngeal Vestibule Closure at Height of Swallow: Incomplete; narrow column of air/contrast in laryngeal vestibule Pharyngeal Stripping Wave: Present - diminished Pharyngoesophageal Segment Opening: Minimal distension and minimal duration; marked obstruction of flow Tongue Base Retraction: Wide column of contrast between tongue base & post. pharyngeal wall Pharyngeal Residue: Majority of contrast within or on pharyngeal structures Esophageal Phase Esophageal Clearance: Esophageal retention w/ retrograde flow below pharyngoesophageal seg. Diagnosis/Impression Diagnosis: Mild oral dysphagia R13.11; Moderate pharyngoesophageal dysphagia R13.14 MBS Impressions: The oral phase is marked by... -Lingual pumping for A-P transport. -Mildly decreased bolus control w/ posterior loss of <1/2 of thin liquids to the vallecula. -Slowed, repetitive tongue motion for A-P transport. -Mild-moderate oral residue, which cleared w/ independent use of multiple swallows. The pharyngeal phase is marked by... -Decreased pharyngeal motility d/t poor TB retraction, minimal pharyngeal stripping wave, and poor UES opening/duration of opening. Majority of the bolus remained in the pharynx after the first swallow. Independent use of multiple swallows somewhat cleared pharyngeal residues through the UES. Liquid wash was also effective in clearing residues; however, mild pharyngeal residues did remain after liquid wash. Pharyngeal residues increased pt's risk for post prandial aspiration. -Decreased airway closure during the swallow due to poor anterior hyoid excursion and decreased laryngeal elevation w/ partial epilgottic inversion. Aspiration of thin liquids by tsp w/ reflexive throat clear. Deep laryngeal penetration of pudding to the vocal folds w/ reflexive throat clearing that effectively cleared pudding from the laryngeal vestibule. Use of chin tuck decreased amount of laryngeal penetration; however, he did have trace residues still on the vocal folds w/ some thin liquid trials utilizing a chin tuck. Throat clear and re-swallow was also effective in decreasing the patient's aspiration risk. -EXAM PROCTOR educated the patient in his high choking and aspiration risk. EXAM PROCTOR recommended very thorough mastication of all foods to decrease choking risk. The esophageal phase is primarily marked by... -Poor UES opening/duration of opening. -Retention of pudding in the upper (mild) and middle and lower (moderate) esophagus, which mostly cleared w/ thin liquid wash. Recommendations Diet: Easy to Chew Textures and Thin Liquids Comment: Meds whole in , 1 at a time, w/ liquid wash using chin tuck after each medication Intermittent throat clear and re-swallow w/ food and drink Compensatory Strategies: Small Bites (CHEW THOROUGHLY), Small Sips (CHIN TUCK E ACH SIP), Slow Rate, Multiple Swallows, Alternate bites/solids and sips/liquids (1:1 Ratio) and Sitting upright (During and 60min after meals) Supervision: 1:1 Direct Supervision Recommend Repeat Modified Barium Swallow: Yes (After 4-8 weeks of oropharyngeal exercise program) Need for Skilled Speech Therapy Services: Yes Comment: -Train the patient and family in strategies to decrease aspiration, reflux aspiration, and choking risk. -Train the patient oropharyngeal exercises (lingual coordination, Jessica, effortful, Shailesh, CTAR, Shaker if tolerated). -Ongoing assessment of diet tolerance. Recommended Referrals: GI Consult (EXAM PROCTOR called PCP and canceled esophagram due to high risk for aspiration.) Education Completed: 1. Described result of evaluation., 2. Pt understands evaluation & agrees with goals and treatment plan. and 7. Pt requires further education on strategies & risks. Comment: Left VM w/ daughter to review results and recommendations of MBSS. Left recommendations of MBSS in the patient's room for pt and family as he is planning to discharge home today. Status Active ST Patient: Active Contact Information [facility] Speech Therapy:: Lisette Mcmahon M.A. [facility] Speech-Language Pathologist [facility] [address] [place] [address] [email or web address] [phone]
--- NOTE | 2024-11-04 15:16 | DS.PCM_ITS ---
Providers Date of Admission: 11/01/24 Primary Care Physician: JAMES Nina Consultations 11/04/24 08:41 Consult: Ell Tutor / Pulmonary Medicine Routine Consulting Provider: Intensivists/Pulmonary Med Reason for Consult: lung mass EMERGENT Consult: No MD Notified: Yes Date Notified: 11/04/24 Time Notified: 08:41 Method of Notification: Verbal Reason For Visit: SYNCOPAL EPISODE Diagnosis Discharge Diagnosis (1) Acute hypotension: Status: Acute Code(s): I95.9 - Hypotension, unspecified (2) Seizure-like activity: Status: Acute Code(s): R56.9 - Unspecified convulsions (3) Syncope and collapse: Status: Acute Code(s): R55 - Syncope and collapse Plan unresponsiveness: * likley 2/2 vasovagal syncope v seizure, favor syncope * head CT negative * MRI brain negative, EEG. Echo shows an EF of 65%. * seizure precautions. 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 Encasing the left common carotid artery and left subclavian artery. Both are patent. Imaging from 2023 from the CTA of the head neck showed that the was a mass in the left upper lobe at that time but was not commented on with that report. * Discussed with Dr. George, pulmonology. He recommends a CT of the chest with contrast and he will see the patient in consultation. 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 Enlarged left axillary lymph node. * Discussed with Dr. Lynn of general surgery about the axillary lesion if it be amenable to biopsy but he saw an overlying vessel that would make it very difficult from a direct approach. Plan is for the patient to follow-up with Dr. George as outpatient and to have an EBUS biopsy. Discussed with the patient and family about having a biopsy and then following up with oncology based on the results of the biopsy for course of action. Chronic medical conditions: * Hyperlipidemia?continue statin medication * Hypertension?monitor blood pressure and address accordingly patient is currently normotensive Dysphagia: * chronic. * ST eval. * was to have a MBSS as outpt Weakness * Had long discussion with the patient's daughter, stepdaughter and granddaughter 11/03. The offered further context that the patient has been declining over the past several months and around [place] time had aspirated on a hot dog bun and was seeing speech therapy at that time. These got to the point where he is having difficulty holding his coffee cup. I explained that I do not think the carotids will show anything significant as he had a normal one April 2023. Will check CTA of neck. Additionally, will have ST see and evaluate. Monitor the patient overnight and potential discharge to home 11/04. DVT prophylaxis?low molecular weight heparin Discussed with patient's 2 daughters at bedside. Greater than 50 minutes of which was spent discussing with pulmonary, general surgery, having a lengthy discussion with the patient and his 2 daughters at bedside. Medications at Discharge Home Medications finasteride 5 mg tablet 5 mg PO DAILY URINE 06/17/14 rosuvastatin 20 mg tablet 20 mg PO QHS Cholesterol 03/28/21 acetaminophen 500 mg tablet 1,000 mg PO DAILY Pain 11/08/21 ascorbic acid (vitamin C) 1,000 mg capsule 1 g PO DAILY 06/30/24 ergocalciferol (vitamin D2) 1,250 mcg (50,000 unit) capsule 1,250 mcg PO QWEEK 06/30/24 fenofibrate nanocrystallized 145 mg tablet 145 mg PO QDAY 06/30/24 saw palmetto 450 mg capsule 450 mg PO QODAY 06/30/24 aspirin 325 mg capsule 325 mg PO DAILY 11/01/24 cyanocobalamin (vitamin B-12) 1,000 mcg capsule 1,000 mcg PO DAILY 11/01/24 Hospital Course Operations None Procedures 2-D Echocardiogram Summary of Care Provided Minutes Spent on Discharge: 55 Hospital Course: This gentleman presents with a syncopal episodes. Patient underwent a workup that was unremarkable and regards to syncope, however his CT of the neck showed a mass in his left upper lobe. CT of his chest verified that it appears that this may have been present back in April 2023. Consult was placed to pulmonary with Dr. George and it did not seem to be safely accessible via percutaneous biopsy. There was noted an axillary lesion but discussing with Dr. Lynn, this did not seem readily accessible given an overlying vessel from that lesion. The patient will follow-up with Dr. George for EBUS and biopsy as outpatient. Patient has had issues regards to swallowing. Was seen by speech therapy and underwent a modified barium swallow study. Patient to follow-up with outpatient speech therapy. I also expressed concern for movement disorders and did make recommendations for the patient to follow-up with movement disorder centers to see if he has anything along the lines of MSA or PSP. 1 possibility also could be paraneoplastic syndrome particularly with this new diagnosis of lung mass. Medical Records Data Medical Nutrition Assessment Dietitian: Malnutrition Criteria Met Start: 11/03/24 11:59 Freq: Status: Active Protocol: Document 11/03/24 12:00 SB (Rec: 11/03/24 12:00 SB [id number]) Nutrition Malnutrition Evidence of Yes Malnutrition Exists Malnutrition (severe Acute Illness/Injury ): Evidenced By Suboptimal Energy Intake (Severe),Weight Loss (Severe) Intake Problem None at this time Status Inactive Problem Clinical Problem Acute Disease or Injury Related Malnutrition Etiology severe related to inadequate oral intake Signs/Symptoms as evidenced by PO meeting <50% of estimated nutrition needs x 1 month and 8% unintentional weight loss x 2 months. Status Active Problem Recommendation Dietitian Continue regular diet. Recommendations/ Will order 240ml EPHP with lunch and dinner. Changes Will monitor weight trends. Weight / BMI Weight Weight: 88.451 kg Body Mass Index (BMI) 26.4 ABG / Lab / Microbiology Data 11/02/24 05:05 11/02/24 05:05 Radiography Diagnostic Testing: Radiology Impression Neck CTA 11/03/24 16:10 IMPRESSION: Extensive neoplasm in the left upper lobe and mediastinum. If this has not already been evaluated, recommend CT chest with IV contrast. 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 Enlarged left axillary lymph nodes. Left apical scarring and bronchiectasis. Small left pleural effusion. Small gallstones. Reading Location: [facility] D/C Instructions DC O2, CPAP, BIPAP Needs Home O2 Discharge instructions: No Meaningful Use Info Meaningful Use Meaningful Use Diagnoses (Choose all that apply): None applicable Discharge Plan Admission Admit Date/Time: 11/01/24 21:50 Primary Reason for Your Visit: syncope Attending Provider: Elbert Wong Primary Care Provider: Diana Ayala Consulting Providers: Leoncio Reveles; Ramon Leonardo; Juana De La Cruz; Jannie Guido; Nickolas Wray; Diony Payne; Benny Benavides; CIRILO LYNN; Pao Stanton; Roula Duke; Harry Rose; Leny Weinberg; Higinio Schneider; Robbin Santos; Gt Myles; Roberto George; Alvarez Jefferson; Adam Antonio; Chris Ramirez; Laurie Gutierrez; Jesús Will; John Paul Grijalva; Enrique Summers; Farrah Carrero; Bayron Lofton; Zina Armendariz; Alicia,Wilder; Davide Kwan; Krishna Best; Patrick Hill; Jolly Beaver; Aravind Schulte; Ricky Bearden; Abel Cantu; Tita Blandon; Donaldo Ace Instructions Additional Instructions / Restrictions: Get up slowly when standing up. If you feel dizzy/unsteady, sit back down. Follow up with a movement disorder specialist: [facility] [phone]. [facility] clinic [phone]. Discharge Orders/Prescriptions Prescriptions: Continued ergocalciferol (vitamin D2) 1,250 mcg (50,000 unit) capsule 1,250 mcg PO QWEEK Patient Comments: per daughter pt takes it Friday fenofibrate nanocrystallized 145 mg tablet 145 mg PO QDAY saw palmetto 450 mg capsule 450 mg PO QODAY Rx Instructions: give with food (meal/snack) ascorbic acid (vitamin C) 1,000 mg capsule 1 g PO DAILY finasteride 5 MG tablet 5 mg PO DAILY Patient Comments: Enlarged prostate (BPH) rosuvastatin 20 mg Tablet 20 mg PO QHS acetaminophen 500 mg tablet 1,000 mg PO DAILY cyanocobalamin (vitamin B-12) 1,000 mcg capsule 1,000 mcg PO DAILY aspirin 325 mg capsule 325 mg PO DAILY Referrals / Follow Up: Roberto George DO [Med Staff - Active Staff] - Within 2 Weeks Diana Ayala NP-C [Primary Care Provider] - Within 2 Weeks Disposition Disposition (needs filled in before D/C Order can be placed): Home, Self Care Charges/Coding Visit Charges Inpatient E&M: 20854 Disch Hosp >30min
--- NOTE | 2024-11-04 15:34 | CASEMGMT ---
ST recommending outpatient ST at discharge. Script received and sent to [place] with request to call patient to schedule. CHRISTINA CM updated patient. Patient voiced understanding and had no further questions or concerns.
[2024-11-04 16:25] VITALS: BP 105/69; PULSE 72; RESP 18; TEMP 36.7; O2SAT 95
== END 2024-11-04 16:52 | disposition home or self-care (01) ==
LOC: ED 20:47 → PCU 21:57
PROVIDERS: Admitting Provider Family Medicine; Emergency Provider Emergency Medicine; PCP Nurse Practitioner Family
DX: R55 Syncope and collapse (principal); C91.11 Chronic lymphocytic leukemia of B-cell type in remission; R56.9 Unspecified convulsions; E78.5 Hyperlipidemia, unspecified; R59.0 Localized enlarged lymph nodes; R91.8 Other nonspecific abnormal finding of lung field; I95.9 Hypotension, unspecified; Z87.891 Personal history of nicotine dependence; Z79.899 Other long term (current) drug therapy; Z79.82 Long term (current) use of aspirin; I10 Essential (primary) hypertension; R13.10 Dysphagia, unspecified; R53.1 Weakness
CPT/HCPCS: 36415; 70450; 70498; 70551; 71260; 74230; 80048; 84145; 85025; 92610; 92611; 93005; 93306; 95819; 96372; 97162; 97530; 97802; 99221; 99285; Q9967; A4216; G0378

== ENCOUNTER 2024-11-08 22:56 | Emergency (ER) | payer MEDICARE, SELFPAY ==
[2024-11-08 23:00] VITALS: BP 87/58; PULSE 57; RESP 16; TEMP 36.9; O2SAT 98; BMI 27.2
[2024-11-08 23:14] VITALS: BP 61/46; PULSE 46; O2SAT 100
[2024-11-08] MEDS: 0.9% Normal Saline (1000mL) 1,000 ML 999 ML IV (23:23)
--- NOTE | 2024-11-08 23:28 | EKG12_ITS ---
Test Reason : DYSRHYTHMIA Blood Pressure : */* mmHG Vent. Rate : 65 BPM Atrial Rate : 65 BPM P-R Int : 166 ms QRS Dur : 104 ms QT Int : 430 ms P-R-T Axes : 55 59 49 degrees QTcB Int : 447 ms Normal sinus rhythm Normal ECG Confirmed by Arvin Albarado ([id number]), editorial manager STACEY QUIÑONES ([id number]) on 11/09/2024 12:01:40 PM Referred By: Confirmed By: Arvin Albarado
--- NOTE | 2024-11-08 23:28 | CT_ITS ---
PROCEDURE: BRAIN/HEAD WITHOUT CONTRAST 11/09/2024 REASON FOR EXAM: SYNCOPE TECHNIQUE: Procedure Code: CTBR Modality: CT Procedure: BRAIN/HEAD WITHOUT CONTRAST Coronal and Sagittal reconstruction series were provided. One or more dose reduction techniques were used (e.g., Automated exposure control, adjustment of the mA and/or kV according to patient size, use of iterative reconstruction technique. RADIATION DOSE SUMMARY: CTDI Vol 44.99 mGy DLP :846.73 mGycm COMPARISON: 11-02-2024 FINDINGS: Accentuated bilateral cerebral periventricular deep white matter hypodensities denoting hypoperfusion with bilateral cerebral periventricular and subcortical hypodense foci and patches. Bae-white matter differentiation is maintained. Normal CT appearance of the posterior fossa structures. No intracerebral or extra axial hemorrhage. Dilated ventricular system, cortical sulci and extra-axial CSF spaces. No definite calvarial fractures. Dense falcine calcifications noted. No midline shifts or deformity. The osseous structures in the skull base are unremarkable. Paranasal sinuses are unremarkable. Vascular atheromatous calcifications. CT/Brain/Head without Contrast IMPRESSION: No acute cerebrovascular abnormalities. If clinical symptoms persist, further e valuation with MRI may be considered as clinically warranted. No intra or extra-axial acute hemorrhage. Bilateral cerebral microvascular ischemic changes with age matches brain involu tional changes. Stable. Reading Location: [place] [address]
--- NOTE | 2024-11-08 23:59 | RAD_ITS ---
PROCEDURE: CHEST 1 VIEW (PORTABLE) 11/09/2024 REASON FOR EXAM: SYNCOPE TECHNIQUE: Frontal view of the chest. COMPARISON: CT scan of the chest on 11/04/2024. FINDINGS: Left hilar/upper lobe mass measuring 6.3 x 14.6 cm in its largest transverse and craniocaudal dimensions respectively infiltrating the corresponding aspect of the mediastinum, probably neoplasm. Minimal left pleural effusion. Passive atelectatic airspace disease in the left lower lobe. Normal heart and pericardium. Normal visualized aortic arch and descending thoracic aorta. Normal visualized thoracic spine. Normal visualized ribs, clavicles, and shoulders. There is no demonstrated abnormality of the visualized soft tissue structures of the upper abdomen. RAD/Chest 1 View (Portable) IMPRESSION: Left hilar/upper lobe mass measuring 6.3 x 14.6 cm in its largest transverse an d craniocaudal dimensions respectively infiltrating the corresponding aspect of the mediastinum, probably neoplasm. Minimal left pleural effusion. Passive atelectatic airspace disease in the left lower lobe. [facility]
[2024-11-09 00:25] LABS: Hematocrit 33.5 % (40-54); Hemoglobin 10.9 g/dL (13.0-16.5); Immature Granulocytes Count 0.040 X10^3/uL (0.0-0.0); Mean Corp Hgb Conc 32.5 g/dL (32-36); Mean Corpuscular Volume 92.8 fL (80-94); Mean Platelet Vol. 12.3 fl (6.2-12.0); NRBC Flagged by Analyzer 0 % (0-5); Platelet Count 120 K/mm3 (150-450); RBC Distribution Width CV 13.8 % (11.6-14.6); RBC Distribution Width SD 47.6 fl (35.1-43.9); Red Blood Count 3.61 M/mm3 (4.6-6.2); White Blood Count 4.2 K/mm3 (4.4-11.0)
[2024-11-09 00:28] LABS: Anion Gap 10 (5-15); BUN 37 mg/dL (4-19); BUN/Creat Ratio 21.9 RATIO (10-20); Calcium,Total 9.2 mg/dL (7.6-11.0); Carbon Dioxide 23.6 mmol/L (21.0-32.0); Chloride 106 mmol/L (98-108); Estimated Creatinine Clearance 35.50 ml/min (50-250); Glucose 103 mg/dL (70-99); Magnesium 2.2 mg/dL (1.5-2.2); Potassium 4.0 mmol/L (3.3-5.1)
[2024-11-09 01:00] VITALS: BP 99/50; PULSE 59; RESP 20; TEMP 36.5; O2SAT 92
[2024-11-09] MEDS: 0.9% Normal Saline (1000mL) 1,000 ML 999 ML IV (01:19)
[2024-11-09 02:23] VITALS: BP 112/63; BP 115/64; BP 99/54; PULSE 62; PULSE 67; PULSE 71
--- NOTE | 2024-11-09 02:49 | EX.ED.DYSGE1 ---
HPI History of Present Illness Chief Complaint: Syncope Informant: patient, family and EMS Narrative Narrative: Patient is 84-year-old male with past medical history of CLL as well as debility and hyperlipidemia. He was admitted to the hospital on November 01 secondary to syncope versus seizure. At that time he underwent a head CT which showed no acute bleed and then had an MRI which showed chronic changes without mass bleed or findings of stroke. CTA of the chest and neck revealed a left perihilar mass without obstruction of the vasculature. The patient was recently discharged home and states that he was doing well. Today/this evening he got up and walked to the kitchen and while he was standing at the sink felt lightheaded and dizzy like he was going to pass out. He states he walked back to his chair and sat down secondary to the sensation and then had a brief bout of syncope. 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 Home Medications ?Medication ?Instructions ?Recorded ?Last Taken ?Type finasteride 5 mg tablet 5 mg PO DAILY URINE 06/17/14 10/31/24 History rosuvastatin 20 mg tablet 20 mg PO QHS Cholesterol 03/28/21 10/31/24 History acetaminophen 500 mg tablet 1,000 mg PO DAILY Pain 11/08/21 Unknown History ascorbic acid (vitamin C) 1,000 mg 1 g PO DAILY 06/30/24 11/01/24 History capsule ergocalciferol (vitamin D2) 1,250 1,250 mcg PO QWEEK 06/30/24 Unknown History mcg (50,000 unit) capsule fenofibrate nanocrystallized 145 145 mg PO QDAY 06/30/24 10/31/24 History mg tablet saw palmetto 450 mg capsule 450 mg PO QODAY 06/30/24 10/31/24 History aspirin 325 mg capsule 325 mg PO DAILY 11/01/24 11/01/24 History cyanocobalamin (vitamin B-12) 1,000 mcg PO DAILY 11/01/24 10/31/24 History 1,000 mcg capsule Allergy/AdvReac Type Severity Reaction Status Date / Time No Known Allergies Allergy Verified 11/01/24 17:57 Family History Father Kidney disease Heart disease Surgical History History of transurethral resection of prostate History of hip replacement History of total left knee replacement (TKR) History of back surgery History of tonsillectomy History of local excision of skin lesion Social History household members: none Smoking Status: Former smoker alcohol intake: never substance use type: does not use ROS ROS ED Constitutional Constitutional ED: Reports other Details: Positive fatigue ; Denies chills or fever(s) Eyes Eyes: Reports other Details: Positive blackness/tunnel vision with the syncopal event ENT ENT ED: Denies sore throat Cardiovascular Cardiovascular: Reports other Details: Positive syncope ; Denies chest pain, palpitations or racing heartbeat Respiratory/Chest Respiratory/Chest: Denies cough or dyspnea Gastrointestinal Gastrointestinal: Denies abdominal pain, diarrhea, nausea or vomiting Genitourinary Genitourinary ED: Denies dysuria Musculoskeletal Musculoskeletal: Denies back pain, myalgias or neck pain Integumentary Denies rash Neurologic Neurologic: Reports weakness; Denies headache(s) Hematologic/Lymphatic Hematologic/Lymphatic: Denies easy bleeding or easy bruising Allergic/Immunologic Allergic/Immunologic ED: Denies mouth swelling or tongue swelling EXAM Physical Exam Const Vital Signs: 11/08/24 23:00 11/08/24 23:06 11/08/24 23:14 Temperature 98.5 F Temperature Source Oral Pulse Rate 57 L 46 L Pulse Rate [Lying] Pulse Rate [Sitting (for 1 minute prior to obtaining)] Pulse Rate [Standing (for 1 minute prior to obtaining)] Respiratory Rate 16 Respiratory Pattern Normal Blood Pressure 87/58 L 61/46 L Blood Pressure [Lying] Blood Pressure [Sitting (for 1 minute prior to obtaining)] Blood Pressure [Standing (for 1 minute prior to obtaining)] Blood Pressure Mean 67 51 Blood Pressure Mean [Lying] Blood Pressure Mean [Sitting (for 1 minute prior to obtaining)] Blood Pressure Mean [Standing (for 1 minute prior to obtaining)] Pulse Ox 98 100 Oxygen Delivery Method Room Air Room Air 11/09/24 01:00 11/09/24 02:23 11/09/24 03:00 Temperature 97.7 F L Temperature Source Oral Pulse Rate 59 L 65 Pulse Rate [Lying] 62 Pulse Rate [Sitting (for 1 minute prior to obtaining)] 67 Pulse Rate [Standing (for 1 minute prior to obtaining)] 71 Respiratory Rate 20 H 18 Respiratory Pattern Blood Pressure 99/50 L 104/59 L Blood Pressure [Lying] 99/54 L Blood Pressure [Sitting (for 1 minute prior to obtaining)] 112/63 Blood Pressure [Standing (for 1 minute prior to obtaining)] 115/64 Blood Pressure Mean 66 74 Blood Pressure Mean [Lying] 69 Blood Pressure Mean [Sitting (for 1 minute prior to obtaining)] 79 Blood Pressure Mean [Standing (for 1 minute prior to obtaining)] 81 Pulse Ox 92 98 Oxygen Delivery Method Room Air Room Air 11/09/24 04:01 Temperature 98.1 F Temperature Source Pulse Rate 71 Pulse Rate [Lying] Pulse Rate [Sitting (for 1 minute prior to obtaining)] Pulse Rate [Standing (for 1 minute prior to obtaining)] Respiratory Rate 18 Respiratory Pattern Blood Pressure 103/69 Blood Pressure [Lying] Blood Pressure [Sitting (for 1 minute prior to obtaining)] Blood Pressure [Standing (for 1 minute prior to obtaining)] Blood Pressure Mean 80 Blood Pressure Mean [Lying] Blood Pressure Mean [Sitting (for 1 minute prior to obtaining)] Blood Pressure Mean [Standing (for 1 minute prior to obtaining)] Pulse Ox 95 Oxygen Delivery Method Positive well nourished and well developed General Appearance ED: well developed and pallor HEENT Reports dry mucous membranes HEENT Narrative: Normocephalic atraumatic No tongue or lip swelling no oral lesions no airway edema or compromise No secondary findings in the posterior pharynx to suggest infection Mucous membranes are dry and tacky No tongue or cheek biting noted to suggest seizure activity Mouth ED: Yes dry mucous membranes Mouth: dry mucous membranes Eyes PERRL and EOMs intact bilaterally Eyes Narrative: Bilateral subconjunctival pallor noted General Eye ED: Yes pale conjunctiva; Negative for scleral icterus Neck supple and no JVD Neck Narrative: No bony deformity or step-off of the cervical spine; no midline tenderness to palpation Chest Wall palpation of chest normal Resp normal respiratory effort and clear to auscultation bilaterally Resp Narrative: Breath sounds are diminished throughout but overall clear to auscultation without nasal flaring retractions tachypnea or accessory muscle use Cardio regular rhythm Rate: bradycardia and other Other Details: Slightly bradycardic rate with regular rhythm Radial and carotid pulses are equal and symmetric GI non-tender, non-distended and no masses GI Narrative: Abdomen is soft nontender and nondistended with hypoactive bowel sound. No voluntary guarding or rigidity or pulsatile mass. Auscultation: hypoactive bowel sounds Palpation: soft Extremity Extremity Narrative: Chronic asymmetric swelling of the right lower leg compared to left Negative Homans' sign bilaterally There are chronic stasis changes noted of the right lower leg No overlying soft tissue changes to suggest trauma or infection Compartments are soft and compressible going against compartment syndrome Neuro oriented x3, CN's II-XII intact bilaterally and no sensory deficits noted Sensorium / Orientation: alert Psych mental status grossly normal Skin no rashes or lesions noted Skin Narrative: Pallor is noted but capillary refill remains less than 3 seconds General Skin Exam: pallor; Negative for jaundice MDM MDM MDM Narrative Medical decision making narrative: Patient arrived to the ER hypotensive at approximately 60/40. This value would correlate with his reported syncope after standing up and walking to the kitchen sink. As the patient was just recently admitted and discharged from the hospital his previous chart was reviewed. He has a known mass in the mediastinum on the left tracking up towards the carotid and subclavian but the images states that there are no signs of vascular occlusion or obstruction. This correlates with the fact he does not have significant swelling or redness towards the arm and face. The patient denied any recent bouts of vomiting or diarrhea or blood loss but with the hypotension and reported orthostatic syncope there is concern for acute blood loss anemia versus acute kidney injury or electrolyte abnormality. In order to ensure that his symptoms were not due to a spontaneous subarachnoid or subdural hemorrhage based on his history of thrombocytopenia I did elect to perform a repeat head CT. However as he had a recent MRI of the brain which showed no masses or bleeds or signs of stroke and he has no focal findings at this time I do not feel the need to activate a stroke alert and repeat his CT/CTA. The patient's hypotension could be due to an infection but he is afebrile he does not have significant change to his white blood cell count and his neutrophil count is not elevated or diminished. The patient was given IV fluids based on his hypotension his physical exam showing mild dehydration and history most consistent with orthostasis. With IV hydration his blood pressure improved. The patient's hemoglobin is 10.9 going against acute blood loss anemia. His creatinine has elevated from a value of 1.19 to a value of 1.67 which would correlate with dehydration but it is not elevated to a value that correlates with acute kidney injury. After receiving IV hydration orthostatic vital signs were obtained. Patient's blood pressure improved with sitting and standing and are technically negative. I did discuss with patient and about potential admission where he can be evaluated by PT/OT and potentially place in rehab or shelter. Patient and states they just went through this a few days ago at the end of his recent admission and did not want placement at that time and still did not want placement. Therefore at this time as the patient does not have findings for acute infection there is no neurologic findings to suggest acute stroke head CT shows no sign of acute trauma such as subarachnoid or subdural hemorrhage and has had improvement of his symptoms and vitals with IV hydration I do not feel there is need for further intervention and he is otherwise safe for discharge History & Record Review Discussion w/independent historian: Patient and Family Additional record(s) reviewed:: Prior inpatient record and Prior ED visit Lab Data Attestation: I reviewed the patient's lab results. Labs: Laboratory Results - last 24 hr 11/08/24 23:48 WBC 4.2 L RBC 3.61 L Hgb 10.9 L Hct 33.5 L MCV 92.8 MCH 30.2 MCHC 32.5 RDW Std Deviation 47.6 H RDW Coeff of April 13.8 Plt Count 120 L MPV 12.3 H Immature Gran % (Auto) 0.900 Neut % (Auto) 68.5 Lymph % (Auto) 14.6 L Linn % (Auto) 13.0 H Eos % (Auto) 2.8 Baso % (Auto) 0.2 Absolute Neuts (auto) 2.9 Absolute Lymphs (auto) 0.62 L Nucleated RBC % 0 Sodium 140 Potassium 4.0 Chloride 106 Carbon Dioxide 23.6 Anion Gap 10 BUN 37 H Creatinine 1.67 H Estim Creat Clear Calc 35.50 L Est GFR (MDRD) Non-Af 40 L BUN/Creatinine Ratio 21.9 H Glucose 103 H Calcium 9.2 Magnesium 2.2 Blood Type O POSITIVE Antibody Screen NEGATIVE Radiography Diagnostic Testing: Clinical Impression(s) from Imaging Studies Brain CT 11/08/24 23:28 IMPRESSION: No acute cerebrovascular abnormalities. If clinical symptoms persist, further evaluation with MRI may be considered as clinically warranted. No intra or extra-axial acute hemorrhage. Bilateral cerebral microvascular ischemic changes with age matches brain involutional changes. Stable. Reading Location[id number] Chest X-Ray 11/08/24 23:59 IMPRESSION: Left hilar/upper lobe mass measuring 6.3 x 14.6 cm in its largest transverse and craniocaudal dimensions respectively infiltrating the corresponding aspect of the mediastinum, probably neoplasm. Minimal left pleural effusion. Passive atelectatic airspace disease in the left lower lobe. Reading Location: [place] [id number] Chest x-ray as interpreted by the emergency medicine physician reveals a left upper lobe mass that correlates with his recent CT scan. No obvious pneumonia or pneumothorax noted. Minimal left-sided pleural effusion Discharge Plan Triage Chief Complaint: Syncope ED Provider: Enrique Cruz Dx/Rx/DC Orders Clinical Impression: Dehydration, Orthostatic syncope, Debility, Thrombocytopenia, Lung mass Instructions: ED Dehydration (Adult), ED Hypotension, Orthostatic Prescriptions: No Action ergocalciferol (vitamin D2) 1,250 mcg (50,000 unit) capsule 1,250 mcg PO QWEEK Patient Comments: per daughter pt takes it Friday fenofibrate nanocrystallized 145 mg tablet 145 mg PO QDAY saw palmetto 450 mg capsule 450 mg PO QODAY Rx Instructions: give with food (meal/snack) ascorbic acid (vitamin C) 1,000 mg capsule 1 g PO DAILY finasteride 5 MG tablet 5 mg PO DAILY Patient Comments: Enlarged prostate (BPH) rosuvastatin 20 mg Tablet 20 mg PO QHS acetaminophen 500 mg tablet 1,000 mg PO DAILY cyanocobalamin (vitamin B-12) 1,000 mcg capsule 1,000 mcg PO DAILY aspirin 325 mg capsule 325 mg PO DAILY Primary Care Provider: Diana Ayala Referrals: Diana Ayala, RECORDS CLERK-C [Primary Care Provider] - Activity Restrictions/Additional Instructions: Please keep yourself well-hydrated as your workup today did reveal a mild elevation to your kidney function and your blood pressure was low but responded to IV fluid. Follow-up with your family doctor to discuss further testing regarding your known lung mass. Please continue all of your home medications as directed by your doctor. Return to the ER should you have any further concerns Print Language: Divehi Disposition Disposition: Home, Self Care Discharge Date/Time: 11/09/24 04:02
[2024-11-09] MEDS: 0.9% Normal Saline (500mL Bag) 500 ML 999 ML IV (02:58)
[2024-11-09 03:00] VITALS: BP 104/59; PULSE 65; RESP 18; O2SAT 98
[2024-11-09 04:01] VITALS: BP 103/69; PULSE 71; RESP 18; TEMP 36.7; O2SAT 95
== END 2024-11-09 04:02 | disposition home or self-care (01) ==
PROVIDERS: Emergency Provider Emergency Medicine; PCP Nurse Practitioner Family; Visit Provider Emergency Medicine
DX: E86.0 Dehydration (principal); E78.00 Pure hypercholesterolemia, unspecified; D69.6 Thrombocytopenia, unspecified; R91.8 Other nonspecific abnormal finding of lung field; R55 Syncope and collapse; R53.81 Other malaise; Z79.82 Long term (current) use of aspirin; Z79.899 Other long term (current) drug therapy; Z87.891 Personal history of nicotine dependence
CPT/HCPCS: 70450; 71045; 80048; 83735; 85025; 86850; 86900; 86901; 93005; 96360; 96361; 99284

== ENCOUNTER → 2024-11-23 | Outpatient (CLI) | payer MEDICARE, SELFPAY ==
--- NOTE | 2024-11-23 09:00 | PET_ITS ---
PROCEDURE: PET/CT TUMOR BASE -THIGH INIT 11/23/2024 REASON FOR EXAM: 84 y/o M with ABNORMAL FINDINGS IN LUNG FIELD. Left hilar/upper lobe mass. Mediastinal mass. TECHNIQUE: Procedure Code: PETPTCTINIT Modality: PT Procedure: PET/CT TUMOR BASE -THIGH INIT Following the intravenous administration of radionucleotide, image acquisition on a dedicated PET/CT unit was performed at one hour post injection. A preliminary CT study encompassing the Skull base, neck, chest, abdomen, pelvis, and proximal thighs was performed for purposes of attenuation correction and anatomic localization. The proximal thighs were also included. The patient's blood glucose level was 92 mg/dL (allowable range: 50-180 mg/dL). RADIOPHARMACEUTICAL: 14.17 mCi 18F-FDG (Fluorodeoxyglucose F18) IV was injected into he patient. RADIATION DOSE SUMMARY: Effective Dose: Approximately 7 mSv for a standard whole-body PET scan Organ Doses: Varies by organ, with higher doses typically to the bladder, liver, and brain COMPARISON: COMPARISON FROM CT, PET OR OTHER PERTINENT EXAMS: Chest CT of 11/04/2024. FINDINGS: Physiologic uptake: There may be expected metabolic uptake within the brain, tongue and floor of the mouth and larynx/vocal cords, heart, miranda (many normal individuals have hilar uptake in less than 3 nodes with mildly avid hilar nodes less than 2.7 SUV), liver and spleen, system, and GI tract and symmetric muscle uptake. FDG AVID AND NON-AVID LESIONS. Reported avid SUV values (g/mL*) are maximum SUV. NECK: Hypermetabolic small left supraclavicular lymph node with SUV max of 26.9. CHEST: Chest wall- There are no significant chest wall abnormalities. Axilla- There are no significant axillary abnormalities. Miranda and Mediastinum- Contiguous from the left hilum into the bilateral mediastinum and even into the cervicothoracic junction of the mediastinum, is seen a hypermetabolic mass. SUV max measurements extend up to 35.1. Multiple variably sized hypermetabolic mediastinal lymph nodes are also seen, bilaterally. A subcarinal lymph node with SUV max of 25.0 was seen, and a posterior left mediastinal lymph node with SUV max 27.5 is also measured. Lung parenchyma- A small area of left upper lobe compressive atelectasis is seen. Based on metabolic activity, no definite involvement of the lung parenchyma is seen. Pleura- A small left pleural fluid collection is noted. No pneumothorax is seen. ABDOMEN: Cholelithiasis. Mild aneurysmal dilation of the distal abdominal aorta is seen, with AP diameter measured at 31.6 mm. Also, at least mild aortic calcification is seen. Scattered colonic diverticula, most apparent at the right colon. Stomach- No significant abnormalities. Liver- No significant abnormalities. Spleen- No significant abnormalities. Pancrease- No significant abnormalities. Kidneys- No significant abnormalities. Bowel- Normal bowel activity. Spine-Postsurgical changes of the lower lumbar spine. No significant abnormal spine uptake. PELVIS: Note is made of an anterior left urinary bladder diverticulum. Bowel- Normal physiologic bowel activity is identified. Masses- There are no pelvic masses. Bones- Prominent degenerative changes are seen throughout the spine. There are no FDG avid lesions within the visualized portion of the axial skeleton. PET/PET/CT Tumor Base -Thigh Init IMPRESSION: FDG avid- Large irregularly-shaped hypermetabolic mass extending from the left hilum thro ugh the bilateral mediastinum through to the cervicothoracic junction, highly concerning for malignancy. Multiple hypermeta bolic bilateral mediastinal lymph nodes also seen, as well as a small hypermetabolic left supraclavicular lymph node. A small area of compressive atelectasis of the left upper lobe is also seen. A small left pleural effusion is noted. Other: 1. Mild distal abdominal aortic aneurysm. 2. Cholelithiasis. 3. Left anterior urinary bladder diverticulum. 4. Scattered colonic diverticula, most apparent at the right colon. 5. Prominent degenerative changes of the spine. Please note the low-dose CT scan was performed to facilitate PET image reconstr uction and anatomic localization and does not replace a diagnostic CT. Any diagnostic CT requested and performed at the time of the PET will be reported separately. Reading Location: [id number]
--- OUTSIDE RECORDS SUMMARY | 2024-11-24 08:19 | XMS RPT_ITS ---
Author Name Auto Generated Organization OHIP PROBLEMS No Problem Records Found PROCEDURES No Procedure Records Found RESULTS 36 Observed: 11/22/2024 11:47 AM Status: COMPLETED Source: [facility] Imaging in PACS, patient dawna eduled with Dr. Mackay 11/25/24. 36 Observed: 11/22/2024 10:44 AM Status: COMPLETED Source: [facility] Call placed to porter film room regarding images, staff to send electronically 11/22/24. 36 Observed: 11/19/2024 2:09 PM Status: COMPLETED Source: [facility] Urgent request sent via rf t o gene film room to obtain CT chest imaging from 11/04/24 and any priors. Per RC in [facility], pt referred from Dr. Roberto mirza at [facility], for EBUS/ENB, appears pt saw Dr. Sharma prior in 2016 for axillary adenopathy which is also noted on current study from 11/04/24. Additional REINIER findings and mediastinal adenopathy noted in report. Pt has personal hx of CLL, sees [place] [facility]. Per pulm notes would like additional work up. Await images, will send to provider. ALLERGIES No Allergies Records Found ENCOUNTERS No Encounter Records Found PAYERS No Payer Records Found
== END | disposition home or self-care (01) ==
PROVIDERS: PCP Nurse Practitioner Family; Referring Provider Nurse Practitioner Acute Care; Visit Provider Nurse Practitioner Acute Care
DX: R91.8 Other nonspecific abnormal finding of lung field (principal); R59.0 Localized enlarged lymph nodes
CPT/HCPCS: 78815; A9552

== ENCOUNTER 2025-01-12 02:26 | Emergency (ER) | payer MEDICARE, SELFPAY ==
[2025-01-12] VITALS (12 sets, daily range): BP systolic 84–120; BP diastolic 50–76; PULSE 56–73; RESP 14–18; TEMP 36.4–36.6; O2SAT 94–100; BMI 26.6
[2025-01-12] MEDS: 0.9% Normal Saline (1000mL) 1,000 ML 999 ML IV ×2 (02:25→03:25)
--- NOTE | 2025-01-12 02:53 | RAD_ITS ---
PROCEDURE: LUMBAR SPINE 2 OR 3 VIEWS 01/12/2025 REASON FOR EXAM: PAIN TECHNIQUE: Procedure Code: RADSPLL Modality: DX Procedure: LUMBAR SPINE 2 OR 3 VIEWS COMPARISON: None. FINDINGS: Unremarkable low lumbar fusion metallic hardware at L4-L5. Grade 1 anterolisthesis of L4 on L5. Mildly exaggerated lumbar lordosis. Mild degenerative levoscoliosis apex at L3. There are diffuse spondylotic changes. Findings are demonstrated to by diffuse disc space narrowing, osteophyte formation and degenerative endplate sclerosis. There is diffuse facet joint arthropathy with secondary bilateral neural foramina narrowing. No fracture or dislocation is seen. No aggressive lytic or blastic bony lesion is noted. RAD/Lumbar Spine 2 or 3 Views IMPRESSION: No evidence for acute abnormality. Reading Location[facility]
--- NOTE | 2025-01-12 02:53 | RAD_ITS ---
PROCEDURE: PELVIS 1 OR 2 VIEWS 01/12/2025 REASON FOR EXAM: FALL TECHNIQUE: Procedure Code: RADPEL Modality: DX Procedure: PELVIS 1 OR 2 VIEWS COMPARISON: None. FINDINGS: Right hip hemiarthroplasty with unremarkable metallic prosthesis. Unremarkable low lumbar fusion metallic hardware. Mild osteopenia of the visualized bones. Degenerative joint disease. No fracture or dislocation is seen. No lytic or blastic bone lesion is noted. RAD/Pelvis 1 or 2 Views IMPRESSION: No evidence for acute abnormality. Reading [facility]
--- NOTE | 2025-01-12 02:54 | CT_ITS ---
PROCEDURE: BRAIN/HEAD WITHOUT CONTRAST 01/12/2025 REASON FOR EXAM: SYNCOPE TECHNIQUE: Procedure Code: CTBR Modality: CT Procedure: BRAIN/HEAD WITHOUT CONTRAST Coronal and Sagittal reconstruction series were provided. One or more dose reduction techniques were used (e.g., Automated exposure control, adjustment of the mA and/or kV according to patient size, use of iterative reconstruction technique. RADIATION DOSE SUMMARY: CTDI Vol 44.99 mGy DLP :846.73 mGycm COMPARISON: 09-Nov-2024 CT report FINDINGS: Bilateral cerebral subcortical and periventricular white matter hypodensities, suggestive of chronic small vessel ischemia. Bae-white matter differentiation is maintained. Unremarkable posterior fossa structures. No intracerebral or extra axial hemorrhage. Dilated ventricular system, cortical sulci and extra-axial CSF spaces. Dense falcine calcification noted. No definite calvarial fractures. No midline shifts or deformity. The osseous structures in the skull base are unremarkable. Paranasal sinuses are unremarkable. Vascular atheromatous calcifications. CT/Brain/Head without Contrast IMPRESSION: No acute cerebrovascular abnormalities. If clinical symptoms persist, further e valuation with MRI may be considered as clinically warranted. No intra or extra-axial acute hemorrhage. Bilateral cerebral microvascular ischemic changes with brain involutional ledezma es. Reading [facility]
--- NOTE | 2025-01-12 02:57 | EDS_ITS ---
HPI History of Present Illness Chief Complaint: Fall Informant: patient, family and EMS Narrative Narrative: Patient is an 84-year-old male with past medical history of CLL and non- Hodgkin's lymphoma. He states he got up to use the restroom this morning. He states that he use the restroom and then was standing at the sink washing his hands. He states he began to feel lightheaded and dizzy and weak. He reports then that he woke up on the bathroom floor. He states that he believes he awoke as soon as he struck the floor or shortly after as he does not remember the fall. He states he was able to sit up and braced himself against the cabinet in the bathroom and began calling out and hitting the cabinet for his daughter. His daughter came upstairs and found him awake and alert but noticed some trauma with injury to his left elbow and as he told her about the bout of passing out EMS was then called and he was brought in for evaluation [facility] Medical History Hyperlipidemia Chronic lymphocytic leukemia in remission Loss of hearing Alcohol use Prostate disease Back pain Fall Intermittent lightheadedness Shortness of breath on exertion History of pain when walking Wears glasses Uses wheelchair Walker as ambulation aid History of leukemia Former smoker History of edema High cholesterol Leukopenia Neutropenia Glaucoma Arthritis B-cell lymphoma Basal cell carcinoma Non-Hodgkin lymphoma Home Medications ?Medication ?Instructions ?Recorded ?Last Taken ?Type rosuvastatin 20 mg tablet 20 mg PO QHS Cholesterol 04/1710/31/24 History acetaminophen 500 mg tablet 1,000 mg PO DAILY Pain Unknown History ascorbic acid (vitamin C) 1,000 mg 1 g PO DAILY 11/01/24 History capsule ergocalciferol (vitamin D2) 1,250 1,250 mcg PO QWEEK 0 06/30/24 Unknown History mcg (50,000 unit) capsule fenofibrate nanocrystallized 145 145 mg PO QDAY 10/31/24 History mg tablet saw palmetto 450 mg capsule 450 mg PO QODAY 06/30/24 0 10/31/24 History cyanocobalamin (vitamin B-12) 1,000 mcg PO DAILY 11/0110/31/24 History 1,000 mcg capsule aspirin 81 mg tablet 81 mg PO DAILY 01/12/25 Unkn own History loratadine 10 mg tablet (Allergy 10 mg PO DAILY Unknown History Relief (loratadine)) Allergy/AdvReac Type Severity Reaction Status Date / Time No Known Allergies Allergy Verified 01/12/25 02:28 Family History Father Kidney disease Heart disease Surgical History History of epidural steroid injection into lumbar spine History of transurethral resection of prostate History of hip replacement History of total left knee replacement (TKR) History of back surgery History of tonsillectomy History of local excision of skin lesion Social History household members: none Smoking Status: Former smoker alcohol intake: never substance use type: does not use ROS ROS ED Constitutional Constitutional ED: Denies chills or fever(s) Eyes Eyes: Denies change in vision ENT ENT ED: Denies rhinorrhea or sore throat Cardiovascular Cardiovascular: Reports other Details: Positive syncope ; Denies chest pain, palpitations or racing heartbeat Respiratory/Chest Respiratory/Chest: Denies cough or dyspnea Gastrointestinal Gastrointestinal: Denies abdominal pain, diarrhea, nausea or vomiting Genitourinary Genitourinary ED: Denies dysuria Musculoskeletal Musculoskeletal: Reports back pain; Denies neck pain Integumentary Reports Abrasions Neurologic Neurologic: Denies headache(s) Hematologic/Lymphatic Hematologic/Lymphatic: Denies easy bleeding or easy bruising EXAM Physical Exam Const Vital Signs: 01/12/25 02:28 01/12/25 02:28 01/12/25 02:37 Temperature 97.5 F L Temperature Source Axillary Pulse Rate 63 Respiratory Rate 16 Respiratory Effort Normal Non-Labored Respiratory Depth Normal Respiratory Pattern Normal Blood Pressure 95/65 87/55 L Blood Pressure Mean 75 65 Pulse Ox 96 Oxygen Delivery Method Room Air Room Air 01/12/25 03:15 01/12/25 03:30 01/12/25 03:45 Temperature Temperature Source Pulse Rate 61 56 L 58 L Respiratory Rate 16 15 16 Respiratory Effort Respiratory Depth Respiratory Pattern Blood Pressure 84/50 L 98/54 L 106/56 L Blood Pressure Mean 62 69 72 Pulse Ox 94 96 95 Oxygen Delivery Method Room Air Room Air Room Air 01/12/25 04:00 01/12/25 04:15 01/12/25 04:30 Temperature Temperature Source Pulse Rate 61 67 59 L Respiratory Rate 16 14 14 Respiratory Effort Respiratory Depth Respiratory Pattern Blood Pressure 99/76 110/56 L 108/55 L Blood Pressure Mean 85 74 71 Pulse Ox 99 96 99 Oxygen Delivery Method Room Air Room Air Room Air 01/12/25 04:45 01/12/25 05:00 01/12/25 05:00 Temperature 98 F Temperature Source Pulse Rate 58 L 73 73 Respiratory Rate 14 18 18 Respiratory Effort Respiratory Depth Respiratory Pattern Blood Pressure 109/51 L 119/58 L 119/58 L Blood Pressure Mean 69 78 78 Pulse Ox 97 99 99 Oxygen Delivery Method Room Air Room Air 01/12/25 05:00 01/12/25 05:13 01/12/25 05:15 Temperature Temperature Source Pulse Rate 66 67 Respiratory Rate 14 17 Respiratory Effort Respiratory Depth Respiratory Pattern Blood Pressure 110/59 L 120/60 119/58 L Blood Pressure Mean 73 77 77 Pulse Ox 96 100 Oxygen Delivery Method Room Air Room Air Positive well developed General Appearance ED: well developed; Negative for pallor HEENT Reports dry mucous membranes HEENT Narrative: No signs of depressed or basilar skull fracture Patient does have a superficial abrasion and small hematoma along the left lateral occipital/temporal portion of the skull that correlates with fall/syncope and head injury No septal hematoma No laceration noted Mucous membranes are dry and tacky No tongue or cheek biting to suggest seizure activity Mouth ED: Yes dry mucous membranes Mouth: dry mucous membranes Eyes PERRL and EOMs intact bilaterally Eyes Narrative: No hyphema noted Neck supple Neck Narrative: No bony deformity or step-off of the cervical spine; no midline tenderness to palpation Patient can move his neck in all directions without pain Chest Wall palpation of chest normal Chest Narrative: No bony deformity or crepitance or pain with palpation of the chest wall Resp normal respiratory effort and clear to auscultation bilaterally Resp Narrative: Breath sounds are diminished throughout but overall clear to auscultation without signs of respiratory distress Cardio regular rate and regular rhythm Rate: other Other Details: Radial and carotid pulses are equal and symmetric GI normal to inspection, nondistended, normoactive bowel sounds, non-tender, non-di stended and no masses GI Narrative: No voluntary guarding no rigidity or pulsatile mass No peritoneal signs No overlying abrasions or ecchymosis to suggest trauma Auscultation: normoactive bowel sounds Palpation: soft Back/Spine Back/Spine Narrative: No bony deformity or step-off of the thoracic or lumbar spine There is midline lower lumbar pain with palpation Extremity Extremity Narrative: Pelvis is stable there is no shortening or external rotation of either lower extremity Patient has a skin tear with faint soft tissue swelling and ecchymosis along the left elbow. However he still has full active and passive range of motion at the joint. No joint effusion noted No signs of long bone injury such as bony deformity or joint effusion All compartments are soft and compressible going against compartment syndrome Neuro oriented x3, CN's II-XII intact bilaterally and no sensory deficits noted Neuro Narrative: GCS of 15 Cranial nerves II through XII are grossly intact without focal neurologic deficit No pronator drift no dysmetria no truncal ataxia NIH stroke scale score of 0 Sensorium / Orientation: alert Motor Exam: strength 5/5 throughout Psych mental status grossly normal Skin Skin Narrative: Skin tear and ecchymosis along the left elbow as well as the small abrasion and hematoma along the left temporal portion of the scalp as documented above Skin turgor is increased as well consistent with dehydration General Skin Exam: Negative for jaundice or pallor MDM MDM MDM Narrative Medical decision making narrative: Patient arrived to the ER awake and alert with normal neurologic exam. His blood pressure was soft however and his history and exam would indicate orthostatic hypotension as a potential cause of his syncope. In order to assess for cardiac dysrhythmia or acute coronary syndrome an EKG was obtained and patient was placed on the satellite project site monitor. In order to assess for potential skull fracture or subarachnoid subdural hemorrhage a CT of the brain was obtained. With areas of injury and pain to look for potential fracture or joint effusion or dislocation x-rays of the back pelvis and elbow were ordered. Blood work was obtained to assess for acute blood loss anemia acute kidney injury or clinically significant electrolyte abnormality. Imaging studies revealed no signs of trauma. Blood work revealed chronic changes that were near baseline f or patient. After receiving 2 L of IV fluid his blood pressure went from soft/mildly hypotensive to normal. On the satellite project site monitor he had no cardiac dysrhythmia such as A-fib a flutter or SVT or bradycardia. He was able to ambulate at the end of the workup without recurrent syncope and had a stable gait. Therefore with overall negative workup and the fact patient's symptoms have improved with IV fluid and he can now ambulate without difficulty there is no need for further intervention and he is otherwise safe for discharge History & Record Review Discussion w/independent historian: Patient and Family Lab Data Attestation: I reviewed the patient's lab results. Labs: Laboratory Results - last 24 hr 01/12/25 02:35 WBC 3.2 L RBC 3.53 L Hgb 10.5 L Hct 32.4 L MCV 91.8 MCH 29.7 MCHC 32.4 RDW Std Deviation 46.6 H RDW Coeff of April 13.9 Plt Count 118 L MPV 12.1 H Immature Gran % (Auto) 0.300 Neut % (Auto) 66.0 Lymph % (Auto) 15.6 L Delta % (Auto) 16.2 H Eos % (Auto) 1.6 Baso % (Auto) 0.3 Absolute Neuts (auto) 2.1 Absolute Lymphs (auto) 0.49 L Nucleated RBC % 0 Sodium 142 Potassium 3.2 L Chloride 112 H Carbon Dioxide 20.9 L Anion Gap 9 BUN 25 H Creatinine 1.21 H Estim Creat Clear Calc 48.99 L Est GFR (MDRD) Non-Af 59 L BUN/Creatinine Ratio 20.7 H Glucose 91 Calcium 8.5 Magnesium 1.7 Radiography Diagnostic Testing: Clinical Impression(s) from Imaging Studies Lumbar Spine X-Ray 01/12/25 02:53 IMPRESSION: No evidence for acute abnormality. [facility] Pelvis X-Ray 01/12/25 02:53 IMPRESSION: No evidence for acute abnormality. [facility] 01/12/25 02:54 IMPRESSION: No acute cerebrovascular abnormalities. If clinical symptoms persist, further evaluation with MRI may be considered as clinically warranted. No intra or extra-axial acute hemorrhage. Bilateral cerebral microvascular ischemic changes with brain involutional changes. Reading [facility] Elbow X-Ray 01/12/25 03:00 IMPRESSION: No evidence for acute abnormality. Reading Location: [place] [id number] Left elbow x-ray as interpreted by the emergency medicine physician reveals no acute fracture dislocation or joint effusion Pelvis x-ray as interpreted by the emergency medicine physician reveals no acute fracture or dislocation Lumbar spine x-ray as interpreted by the emergency medicine physician reveals no acute compression fracture or spondylolisthesis Discharge Plan Triage Chief Complaint: Fall ED Provider: Enrique Cruz Dx/Rx/DC Orders Clinical Impression: Orthostatic syncope, Dehydration, Skin tear of elbow without complication, Debility, CLL (chronic lymphocytic leukemia), Non-Hodgkin lymphoma Instructions: Orthostatic Hypotension, ED Dehydration (Adult), ED Skin Tear (Skin Avulsion) Prescriptions: No Action ergocalciferol (vitamin D2) 1,250 mcg (50,000 unit) capsule 1,250 mcg PO QWEEK Patient Comments: per daughter pt takes it Friday fenofibrate nanocrystallized 145 mg tablet 145 mg PO QDAY saw palmetto 450 mg capsule 450 mg PO QODAY Rx Instructions: give with food (meal/snack) ascorbic acid (vitamin C) 1,000 mg capsule 1 g PO DAILY rosuvastatin 20 mg Tablet 20 mg PO QHS acetaminophen 500 mg tablet 1,000 mg PO DAILY cyanocobalamin (vitamin B-12) 1,000 mcg capsule 1,000 mcg PO DAILY aspirin 81 mg tablet 81 mg PO DAILY loratadine [Allergy Relief (loratadine)] 10 mg tablet 10 mg PO DAILY Primary Care Provider: Diana Ayala Referrals: Diana Ayala NP-C [Primary Care Provider, Internal Medicine] Activity Restrictions/Additional Instructions: Your workup today revealed no signs of acute trauma such as brain bleed or fracture. Please continue to wash your left elbow and keep the wounds covered to help the skin tears to heal. Continue all of your home medication as directed by your doctor and keep yourself well-hydrated in order to try and help prevent reoccurrence of symptoms. Return to the ER should you have any further concerns Print Language: Icelandic Disposition Disposition: Home, Self Care Discharge Date/Time: 01/12/25 05:36
--- NOTE | 2025-01-12 03:00 | RAD_ITS ---
PROCEDURE: ELBOW MIN 3 VIEWS 01/12/2025 REASON FOR EXAM: PAIN TECHNIQUE: Procedure Code: RADEL Modality: DX Procedure: ELBOW MIN 3 VIEWS Laterality: Left COMPARISON: None. FINDINGS: Enthesophyte formation at the triceps tendon insertion on the olecranon. Normal radiocapitellar articulation. Normal ulnotrochlear articulation. Normal distal humerus and epicondyles. Normal proximal ulna and olecranon process. Normal proximal radius. RAD/Elbow min 3 Views IMPRESSION: No evidence for acute abnormality. Reading [facility]
[2025-01-12 03:10] LABS: Hematocrit 32.4 % (40-54); Hemoglobin 10.5 g/dL (13.0-16.5); Immature Granulocytes Count 0.010 X10^3/uL (0.0-0.0); Mean Corp Hgb Conc 32.4 g/dL (32-36); Mean Corpuscular Volume 91.8 fL (80-94); Mean Platelet Vol. 12.1 fl (6.2-12.0); NRBC Flagged by Analyzer 0 % (0-5); POSITIVE DIFFERENTIAL YES; Platelet Count 118 K/mm3 (150-450); RBC Distribution Width CV 13.9 % (11.6-14.6); RBC Distribution Width SD 46.6 fl (35.1-43.9); Red Blood Count 3.53 M/mm3 (4.6-6.2); White Blood Count 3.2 K/mm3 (4.4-11.0)
[2025-01-12 03:30] LABS: Anion Gap 9 (5-15); BUN 25 mg/dL (4-19); BUN/Creat Ratio 20.7 RATIO (10-20); Calcium,Total 8.5 mg/dL (7.6-11.0); Carbon Dioxide 20.9 mmol/L (21.0-32.0); Chloride 112 mmol/L (98-108); Estimated Creatinine Clearance 48.99 ml/min (50-250); Glucose 91 mg/dL (70-99); Potassium 3.2 mmol/L (3.3-5.1)
[2025-01-12 03:41] LABS: Magnesium 1.7 mg/dL (1.5-2.2)
== END 2025-01-12 05:36 | disposition home or self-care (01) ==
PROVIDERS: Emergency Provider Emergency Medicine; PCP Nurse Practitioner Family; Visit Provider Emergency Medicine
DX: S51.012A Laceration without foreign body of left elbow, initial encounter (principal); C85.90 Non-Hodgkin lymphoma, unspecified, unspecified site; C91.10 Chronic lymphocytic leukemia of B-cell type not having achieved remission; R55 Syncope and collapse; Z87.891 Personal history of nicotine dependence; E86.0 Dehydration; R53.81 Other malaise; E78.00 Pure hypercholesterolemia, unspecified; Z79.899 Other long term (current) drug therapy; Z96.649 Presence of unspecified artificial hip joint; Z96.652 Presence of left artificial knee joint; W18.39XA Other fall on same level, initial encounter; Y92.89 Other specified places as the place of occurrence of the external cause
CPT/HCPCS: 70450; 72100; 72170; 73080; 80048; 83735; 85025; 93005; 96360; 96361; 99285; A4216